=== PATIENT | female | born 1950 | race Caucasian/White ===

== ENCOUNTER 2020-03-24 13:48 | Outpatient (CLI) | payer MEDICARE, BC, OTHER, SELFPAY ==
[2020-03-24 13:58] LABS: Basophils % 0.9 %; Eosinophils # 0.1 10^3/uL (0.0-0.8); Eosinophils % 3.7 %; Hematocrit 41.4 % (37.0-47.0); Hemoglobin 12.9 g/dL (11.5-15.3); Lymphocytes # 1.2 10^3/uL (0.8-4.8); Lymphocytes % 36.6 %; Mean Corpuscular HGB Conc 31.2 g/dL (30.0-36.0); Mean Corpuscular Hemoglobin 34.7 pg (28.0-34.0); Mean Corpuscular Volume 111.3 fL (81-99); Mean Platelet Volume 9.6 fL (7.4-10.4); Monocytes # 0.3 10^3/uL (0.2-0.9); Monocytes % 9.2 %; Neutrophils % 49.3 %; Nucleated Red Blood Cells % 0 %; Platelet Count 240 10^3/cmm (130-400); Red Blood Count 3.72 10^6/uL (4.1-5.3); White Blood Count 3.3 10^3/uL (4.0-10.0)
--- NOTE | 2020-03-24 14:00 | ECG_ITS ---
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 Measurements Intervals [place] Rate: 78 P: 79 ID: [id number] QRS: 16 QRSD: 105 T: 48 QT: 398 QTc: 454 Interpretive Statements SINUS RHYTHM No previous ECG available for comparison Electronically Signed On 03-24-2020 16:43:39 CDT by Tim Garcia M.D. [id number]
[2020-03-24 14:13] LABS: Anion Gap 13.3 (5-19); Blood Urea Nitrogen 9 mg/dL (8-23); Calcium 9.3 mg/dL (8.5-10.5); Carbon Dioxide 24 mmol/L (22-29); Chloride 103 mmol/L (98-107); Glucose 98 mg/dL (65-115); Osmolality Calculated 278 mOsm/kg (285-295); Potassium 4.3 mmol/L (3.5-5.1); Sodium 136 mmol/L (136-145)
== END 2020-03-24 13:49 | disposition home or self-care (01) ==
LOC: LAB 13:50
PROVIDERS: PCP Nurse Practitioner Family; Visit Provider Specialist
DX: Z01.818 Encounter for other preprocedural examination (principal)
CPT/HCPCS: 36415; 80048; 85025; 93005

== ENCOUNTER 2020-05-05 22:19 | Emergency (ER) | payer MEDICARE, BC, OTHER, SELFPAY ==
[2020-05-05 22:21] VITALS: BP 120/77; PULSE 81; RESP 16; TEMP 36.5; O2SAT 98; BMI 27.9
--- NOTE | 2020-05-05 22:27 | ECG_ITS ---
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 Measurements Intervals [place] Rate: 81 P: 7 UT: 125 QRS: 43 QRSD: 106 T: 66 QT: 397 QTc: 462 Interpretive Statements SINUS RHYTHM Compared to ECG 03/24/2020 14:03:16 No significant changes Electronically Signed On 05-06-2020 17:25:59 CDT by Carlos Varner M.D. [id number]
--- NOTE | 2020-05-05 22:27 | XRR_ITS ---
PROCEDURE INFORMATION: Exam: XR Chest, 1 View Exam date and time: 05/05/2020 10:40 PM Age: 69 years old Clinical indication: TIA TECHNIQUE: Imaging protocol: XR of the chest Views: 1 view. COMPARISON: No relevant prior studies available. FINDINGS: Lungs: No pneumonia or pulmonary edema. Pleural space: No pleural effusion or pneumothorax. Heart/Mediastinum: The cardiac silhouette is not enlarged. The mediastinal contours are normal. Diaphragm: Mild elevation of the right hemidiaphragm. Bones/joints: Prior bilateral reverse total shoulder arthroplasties. Slight curvature of the thoracic spine convex to the left associated with multilevel disc degeneration. XR/XR chest 1V portable [id number] IMPRESSION: No acute abnormality.
--- NOTE | 2020-05-05 22:29 | ED_ITS ---
HPI - Neuro Symptoms/Deficit General: Chief Complaint: Neuro Symptoms/Deficit Stated Complaint: TIA Time Seen by Provider: 05/05/20 22:20 Source: EMS Mode of arrival: EMS Limitations: no limitations History of Present Illness: HPI Narrative: 69-year-old female states today at 9 she had a black spot in her vision. Son came upstairs and states that she seemed to have left facial droop. The symptoms all resolved before EMS arrived. Patient states she drinks daily and has had 7 beers. Patient is currently intoxicated and is been very rude to myself along with staff. Patient is able ambulate. She denies any chest pain or headache. Associated symptoms: Deny chest pain, headache(s), nausea or vomiting Review of Systems Const: Denies: fever(s), chills, body aches or change in appetite Eyes: Denies: blurry vision or eye discomfort ENMT: Denies: throat pain or dental pain Card: Denies: chest pain Resp: Denies: dyspnea GI: Denies: abdominal pain, nausea, vomiting or diarrhea : Denies: dysuria Musc: Denies: neck pain or back pain Skin/Breast: Denies: rash Neuro: Denies: headache(s) Psych: Denies: depression Sunny/Lymph: Denies: easy bruising All/Imm: Denies: urticaria PFSH ED PFSH: Social History (Updated 05/05/20 @ 22:33 by Akira Murillo RN) Smoking and tobacco status: current every day smoker cigarettes Packs smoked per day: 2 Alcohol intake: current Alcohol intake frequency: 3 or more drinks per day Alcohol type: beer NIH stroke score NIHSS: Level Of Consciousness - 1a: 0 Level Of Consciousness Questions - 1b: Both Correct Level Of Consciousness Commands - 1c: Both Correct Best Gaze - 2: Normal Visual Joel - 3: No Visual Loss Facial Palsy - 4: Normal Motor Arm Right - 5: No Drift Motor Arm Left - 5: No Drift Motor Leg Right - 6: No Drift Motor Leg Left - 6: No Drift Limb Ataxia - 7: Absent Sensory - 8: Normal Best Language - 9: No Aphasia Dysarthia - 10: Normal Extinction And Inattention - 11: 0 Score: Total Score: 0 Physical Exam Const: COMMON NORMALS: no acute distress, patient oriented x3 and healthy appearing OTHER: intoxicated HENMT: COMMON NORMALS: normocephalic and atraumatic HEAD & SCALP: normocephalic and atraumatic Eye: COMMON NORMALS: Equal, round and reactive pupils present and EOMs intact bilaterally PUPIL: Yes Equal, round and reactive pupils present Neck/C-Spine: COMMON NORMALS: full ROM and supple Chest: COMMONS NORMALS: normal inspection of the chest and normal palpation of entire chest wall Resp: COMMON NORMALS: normal respiratory effort, No retractions, No use of accessory muscles and clear to auscultation bilaterally AUSCULTATION: clear to auscultation bilaterally Cardio: COMMON NORMALS: regular rate, regular rhythm and No murmurs present (Cardio) RATE: regular rate RHYTHM: regular rhythm GI: COMMON NORMALS: Normal to inspection, nondistended, normoactive bowel sounds present, Soft to palpation, non-tender and no masses PALPATION: Yes Soft to palpation Extremity: COMMON NORMALS: normal to inspection and full ROM Neuro: COMMON NORMALS: patient oriented x3, moves all extremities and no focal motor deficits Psych: COMMON NORMALS: mental status grossly normal, Normal thought process present and cooperative THOUGHT PROCESS: Normal thought process present Skin: COMMON NORMALS: no rashes or lesions noted and no wounds GENERAL SKIN EXAM: no rashes or lesions noted Course Vital Signs: Vital signs: Vital Signs Temperature 98.8 F 05/06/20 00:01 Pulse Rate 88 05/06/20 00:01 Respiratory Rate 14 05/06/20 00:01 Blood Pressure 136/84 05/06/20 00:01 Pulse Oximetry 96 05/06/20 00:01 MDM - Neuro Symptoms/Deficit MDM Narrative: Medical decision making narrative: Patient presents here with a possible TIA. Patient is also intoxicated. Patient's exam here is benign. She is able ambulate here and had no focal deficits. Patient was very rude to myself along with staff here. Patient's head CT is normal. She is to follow-up with primary care doctor in 3 to 5 days return if worsening. Lab Data: Labs: Lab Results 05/05/20 05/05/20 05/05/20 Range/Units 23:10 23:10 23:10 WBC 3.8 L (4.0-10.0) 10^3/ uL RBC 3.51 L (4.1-5.3) 10^6/u L Hgb 12.3 (11.5-15.3) g/dL Hct 37.8 (37.0-47.0) % MCV 107.7 H (81-99) fL MCH 35.0 H (28.0-34.0) pg MCHC 32.5 (30.0-36.0) g/dL RDW 13.2 (12.1-15.1) % Plt Count 182 (130-400) 10^3/c mm MPV 9.3 (7.4-10.4) fL Neut % (Auto) 30.2 % Lymph % (Auto) 52.6 % Kleberg % (Auto) 8.6 % Eos % (Auto) 7.3 % Baso % (Auto) 1.0 % Neut # (Auto) 1.16 L (1.8-7.7) 10^3/u L Lymph # (Auto) 2.0 (0.8-4.8) 10^3/u L Kleberg # (Auto) 0.3 (0.2-0.9) 10^3/u L Eos # (Auto) 0.3 (0.0-0.8) 10^3/u L Baso # (Auto) 0.0 (0.0-0.1) 10^3/u L Nucleated RBC % (a uto) 0 % Nucleated RBCs # 0.0 /100WBC PT 13.10 (12.1-14.9) SECO NDS INR 0.96 (0.8-1.2) Sodium 133 L (136-145) mmol/L Potassium 3.5 (3.5-5.1) mmol/L Chloride 102 (98-107) mmol/L Carbon Dioxide 20 L (22-29) mmol/L Anion Gap 14.5 (5-19) BUN 8 (8-23) mg/dL Creatinine 0.6 (0.5-0.9) mg/dL GFR Calculation Not Reportable Glucose 86 (65-115) mg/dL Calculated Osmolal ity 271 L (285-295) mOsm/k g Calcium 8.3 L (8.5-10.5) mg/dL Total Bilirubin 0.2 (0.15-1.2) mg/dL AST 20 (0-32) U/L ALT 14 (0-33) U/L Alkaline Phosphata se 74 (35-105) IU/L Total Protein 7.0 (6.6-8.7) g/dL Albumin 4.3 (3.5-5.2) g/dL Globulin 2.7 (1.3-4.6) g/dL Ethyl Alcohol 173 H (0-10) mg/dL Imaging Data^: CXR: Attestation: I personally reviewed and interpreted this imaging study as follows: My impression: no acute abnormality CT Head: Radiologist's impression: [address] [address] [address] Scan Report Signed Patient: Maria L Clark Unit #: [id number] : 1950 Age/Sex: 69 / F ADM Date: 05/05/20 Loc: ER Room/Bed: Attending Dr: Ordering Provider/Ordering MD: Chantel Ng MD Date of Service: 05/05/20 Procedure(s): CT head wo con* [id number] Accession Number(s): [id number] Report Number: [id number] PROCEDURE INFORMATION: Exam: CT Head Without Contrast Exam date and time: 05/05/2020 10:31 PM Age: 69 years old Clinical indication: Visual disturbance and weakness, extremity and weakness, facial; Left; Additional info: TIA TECHNIQUE: Imaging protocol: Computed tomography of the head without contrast. Radiation optimization: All CT scans at this facility use at least one of these dose optimization techniques: automated exposure control; mA and/or kV adjustment per patient size (includes targeted exams where dose is matched to clinical indication); or iterative reconstruction. COMPARISON: No relevant prior studies available. RADIATION DOSE METRICS: Total DLP (mGy-cm): 831.74 FINDINGS: Brain: No acute intracranial hemorrhage or mass effect. There is decreased attenuation in the periventricular white matter, likely from microvascular disease. No definite acute infarct by CT. MRI could be more sensitive/specific for detection, as clinically directed. Ventricles: Ventricle size is normal for age. Bones/joints: No definite acute skull fracture. Sinuses: Included paranasal sinuses are essentially clear. Mastoid air cells: No significant acute finding. Vasculature: Vascular calcifications in the internal carotid arteries. CT/CT head wo con* [id number] IMPRESSION: 1. No acute intracranial hemorrhage or mass effect. 2. Changes of microvascular disease. 3. No definite acute infarct by CT, see above. 4. Other findings discussed above. EKG Data^: EKG 1: Attestation: I personally reviewed and interpreted this EKG as follows: EKG interpretation date: 05/05/20 EKG interpretation time: 22:45 Interpretation: nsr hr [address] or t wave abnormalities qrs 106 qtc 434 Discharge Plan Discharge Patient Disposition: Home Clinical Impression: Alcohol intoxication Transient cerebral ischemia Qualifiers: Transient cerebral ischemia type: unspecified Qualified Code(s): G45.9 - Transient cerebral ischemic attack, unspecified Condition: Stable Discharge Orders: Discharge Order (Routine); Ordered 05/05/20 Ordered By: Chantel Ng Referrals: Blanca Ybarra APN [Primary Care Provider] - 1-3 days Discharge Diet: Advance as tolerated Discharge Activity: Resume usual activity Patient Instructions: Transient Ischemic Attack (ED) Discharge Date/Time: 05/06/20 00:02 Coding Level of Care Code ED Director Federal for Chg Fwd Exam Comprehensive
[2020-05-05 23:15] LABS: Eosinophils # 0.3 10^3/uL (0.0-0.8); Eosinophils % 7.3 %; Hematocrit 37.8 % (37.0-47.0); Hemoglobin 12.3 g/dL (11.5-15.3); Lymphocytes % 52.6 %; Mean Corpuscular HGB Conc 32.5 g/dL (30.0-36.0); Mean Corpuscular Volume 107.7 fL (81-99); Mean Platelet Volume 9.3 fL (7.4-10.4); Monocytes # 0.3 10^3/uL (0.2-0.9); Monocytes % 8.6 %; Neutrophils # 1.16 10^3/uL (1.8-7.7); Neutrophils % 30.2 %; Nucleated Red Blood Cells % 0 %; Platelet Count 182 10^3/cmm (130-400); Red Blood Count 3.51 10^6/uL (4.1-5.3); Red Cell Distribution Width 13.2 % (12.1-15.1); White Blood Count 3.8 10^3/uL (4.0-10.0)
[2020-05-05 23:30] LABS: INR 0.96 (0.8-1.2)
[2020-05-05 23:33] LABS: Alanine Aminotransferase 14 U/L (0-33); Albumin Level 4.3 g/dL (3.5-5.2); Alcohol Level 173 mg/dL (0-10); Alkaline Phosphatase 74 IU/L (35-105); Anion Gap 14.5 (5-19); Aspartate Amino Transferase 20 U/L (0-32); Blood Urea Nitrogen 8 mg/dL (8-23); Calcium 8.3 mg/dL (8.5-10.5); Carbon Dioxide 20 mmol/L (22-29); Chloride 102 mmol/L (98-107); Globulin 2.7 g/dL (1.3-4.6); Glucose 86 mg/dL (65-115); Osmolality Calculated 271 mOsm/kg (285-295); Potassium 3.5 mmol/L (3.5-5.1); Sodium 133 mmol/L (136-145); Total Bilirubin 0.2 mg/dL (0.15-1.2)
[2020-05-06 00:01] VITALS: BP 136/84; PULSE 88; RESP 14; TEMP 37.1; O2SAT 96
== END 2020-05-06 00:02 | disposition home or self-care (01) ==
PROVIDERS: Emergency Provider Emergency Medicine; PCP Nurse Practitioner Family
DX: G45.9 Transient cerebral ischemic attack, unspecified (principal); F10.129 Alcohol abuse with intoxication, unspecified; Y90.6 Blood alcohol level of 120-199 mg/100 ml; F17.210 Nicotine dependence, cigarettes, uncomplicated
CPT/HCPCS: 12345; 70450; 71045; 80053; 80307; 85025; 85610; 93005; 99282; 99283

== ENCOUNTER → 2022-06-23 11:08 | Outpatient (BNVA) | payer MEDICARE, BC, OTHER, SELFPAY | PROVIDERS: PCP Nurse Practitioner Family; Visit Provider Surgery | DX: K29.70 Gastritis, unspecified, without bleeding (principal); R10.9 Unspecified abdominal pain | CPT/HCPCS: 99203 ==

== ENCOUNTER 2022-08-10 12:36 | Outpatient (CLI) | payer MEDICARE, BC, OTHER, SELFPAY ==
[2022-08-10] MEDS: iohexol 350 mg/mL 100 mL Btl PO (13:29)
[2022-08-10] MEDS: iohexol 350 mg/mL 100 mL Btl IV (13:54)
--- NOTE | 2022-08-10 14:00 | CT_ITS ---
WS: [id number] CT ABDOMEN PELVIS TECHNIQUE: Contrast-enhanced CT of the abdomen and pelvis with coronal and sagittal reformatted image s. CLINICAL INFORMATION: abd pain COMPARISON: None. DLP: 1120.[address] scans at [facility] use at least one of these dose optimization techniques: automated e xposure control; mA and/or kV adjustment per patient size (includes targeted exams where dose is matc hed to clinical indication); or iterative reconstruction. FINDINGS: Bilateral breast prosthesis. Lung bases are well aerated. Small esophageal hiatal hernia. Mild circum ferential thickening involving the distal esophagus and GE junction can be seen with gastritis and es ophagitis. Gastric wall and Gastric rugal thickening. This can be further evaluated with endoscopy. Prior cholecystectomy. Physiologic dilatation of the common bile duct. Normal portal vein and splenic vein. Pancreas appears normal. Mild aortic calcification. Normal caliber abdominal aorta. Adrenal gl ands are normal. No hydronephrosis. Tiny fat-containing umbilical hernia.Normal sigmoid colon. Mild transverse colon constipation. Hypert rophic changes lower thoracic spine. Disc space narrowing worse L4-L5. CT/CT abdomen pelvis w con* [id number] IMPRESSION: 1. Mild thickening at the GE junction with gastric wall thickening involving t he body and fundus with rugal thickening likely due to gastroesophagitis. This can be further evaluated with endoscopy. 2. Prior cholecystectomy with intrahepatic and common bile duct dilatation lik sheldon physiologic postcholecystectomy. 3. Tiny esophageal hiatal hernia. 4. No hydronephrosis in either kidney. 5. Tiny fat-containing umbilical hernia. 6. Prior hysterectomy. 7. No other remarkable findings.
== END 2022-08-10 12:37 | disposition home or self-care (01) ==
LOC: RAD 12:36
PROVIDERS: PCP Nurse Practitioner Family; Visit Provider Surgery
DX: K29.70 Gastritis, unspecified, without bleeding (principal); Z90.49 Acquired absence of other specified parts of digestive tract; K44.9 Diaphragmatic hernia without obstruction or gangrene; K42.9 Umbilical hernia without obstruction or gangrene; Z90.710 Acquired absence of both cervix and uterus
CPT/HCPCS: 74177; Q9967

== ENCOUNTER 2022-08-17 08:39 | Day surgery (SDC) | payer MEDICARE, BC, OTHER, SELFPAY ==
[2022-08-16 10:27] VITALS: BMI 27.1
[2022-08-17 09:01] VITALS: BP 121/94; PULSE 114; RESP 18; TEMP 36.3; O2SAT 96
[2022-08-17] MEDS: sodium chloride 0.9% 1,000 ML 30 ML IV (09:10)
--- NOTE | 2022-08-17 10:08 | P.HP_ITS ---
Same Day Surgery H&P Indication for Procedure/HPI DATE OF PROCEDURE: August 17, 2022 CHIEF COMPLAINT/INDICATIONFOR SURGICAL PROCEDURE: Abdominal pain PREOP DIAGNOSIS: Abdominal pain PLANNED PROCEDURE: Operation Date: 08/17/22 10:00 Proposed Procedures p EGD/colonoscopy 20868,87013,K29.70(Not Applicable) - Sam Montgomery MD s Colonoscopy(Not Applicable) - Sam Montgomery MD 06/23/2022 Is a pleasant 71 years old female patient comes with broad spectrum of GI symptomatology.? In the form of abdominal pain being dull for the past 3 months.? Seems that Carafate helped some and she was told that she may have an ulcer.? It seems to make it worse otherwise.? Pain is mostly in the upper abdomen.? And referred to the back.? No other associated constitutional symptoms.? Patient never had an EGD before and last colonoscopy was over 10 years ago and a polyp was found.? Patient gives history of open cholecystectomy appendectomy and history of endometriosis. 08/17/2022 Patient comes to the GI lab for diagnostic EGD and colonoscopy, in the interim had a CT scan of the abdomen pelvis per my request and did show; 1.? Mild thickening at the GE junction with gastric wall thickening involving the body and fundus with rugal thickening likely due to gastroesophagitis. This can be further evaluated with endoscopy. 2.? Prior cholecystectomy with intrahepatic and common bile duct dilatation likely physiologic postcholecystectomy. 3.? Tiny esophageal hiatal hernia. 4.? No hydronephrosis in either kidney. 5.? Tiny fat-containing umbilical hernia. 6.? Prior hysterectomy. 7.? No other remarkable findings. ? ROS All systems have been reviewed negative except as for the above or per problem list. Medications/Allergies* Home Medications Medication Instructions Recorded Confirmed Type B-complex with vitamin C See Rx Instructions .Route .monthly 05/27/20 08/16/22 History albuterol sulfate 90 mcg/actuation 2 puff inhalation Q6H PRN 05/27/20 08/16/22 History aerosol inhaler Shortness Of Breath duloxetine 60 mg capsule,delayed 60 mg PO DAILY 05/27/20 08/16/22 History release (Cymbalta) levothyroxine 125 mcg capsule 125 mcg PO DAILY 05/27/20 08/16/22 History lorazepam 0.5 mg tablet 1 mg PO .bedtime 05/27/20 08/16/22 History pantoprazole 40 mg tablet,delayed 40 mg PO DAILY 05/27/20 08/16/22 History release sucralfate 1 gram tablet (Carafate) 1 gm PO .every 6 hours PRN Acid 05/27/20 08/16/22 History Reflux topiramate 200 mg tablet 400 mg PO DAILY 05/27/20 08/16/22 History Allergies/Adverse Reactions Allergy/AdvReac Type Severity Reaction Status Date / Time codeine Allergy ALGY-Hives Verified 08/17/22 10:09 hydromorphone [From Dilaudid] Allergy ALGY-Anaphy Verified 08/17/22 10:09 laxis morphine Allergy ALGY-Hives Verified 08/17/22 10:09 Penicillins Allergy Unknown Verified 08/17/22 10:09 Current Medications: Generic Name Dose Route Start Last Admin Trade Name Freq PRN Reason Stop Dose Admin Sodium Chloride 1,000 mls @ 30 mls/hr 08/17/22 08:45 08/17/22 09:10 Sodium Chloride 0.9% IV 08/18/22 08:44 30 mls/hr .Q24H LUZ Administration Pertinent History/Comorbid Conditions* Family History (Updated 05/27/20 @ 11:06 by Sol Carreon LPN) No pertinent family history Unknown colon cancer, uterine or ovarian cancer, heart disease, hypertension, hypercholesterolemia, stroke, diabetes, or thyroid issues Breast cancer Mother diagnosed at age 65 Social History Smoking and tobacco status: current every day smoker cigarettes Packs smoked per day: 2 Alcohol intake: current Alcohol intake frequency: 3 or more drinks per day Alcohol type: beer Pertinent Exam Findings alert, oriented x 3, regular rate & rhythm and procedure specific exam findings (Abdominal exam nontender nondistended soft) Recommendations Surgery/Procedure today (EGD and colonoscopy with possible biopsy) Coding Level of Care Code Acute 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
--- NOTE | 2022-08-17 10:40 | P.ANESASSM_ITS ---
Pre-Anesthetic Assessment Height/Weight: Height 1.65 m Weight 73.936 kg Temp Pulse Resp BP Pulse Ox O2 Del Method 97.3 F L 114 H 18 121/94 96 08/17/22 09:01 08/17/22 09:01 08/17/22 09:01 08/17/22 09:01 08/17/22 09:01 08/17/22 09:01 Preop Diagnosis: Abdominal pain Operation Date: 08/17/22 10:00 Proposed Procedures p EGD/colonoscopy [id number],K29.70(Not Applicable) - Sam Montgomery MD s Colonoscopy(Not Applicable) - Sam Montgomery MD Familial anesthetic complications: None Was Beta Chapo taken within 24 hours: N/A Was Clonidine taken within 24 hours: N/A Last intake: Intake Last Liquid Date 08/16/22 Last Liquid Time 23:30 Last Solid Date 08/15/22 Last Solid Time 22:00 Social Alcohol (Nightly beer) and Tobacco 1.5 pack(s) per day Exam alert, oriented x 3, clear to auscultation bilaterally and regular rate & rhythm Airway Submandibular: within normal limits Cervical ROM: Other (Decreased ROM) Mallampati: Class III Dentition: other (Bridge) History/ROS No significant history except as noted and No significant complaints Pulmonary Chronic Obstructive Pulmonary Disease, Cough and Exertional Dyspnea CV/HEM Coronary Artery Disease None reported Hepatic None reported GI Gastroesophageal Reflux Disease (Controlled with meds, none this AM) and Peptic Ulcer Disease Metabolic Thyroid Disease [facility] Fibromyalgia, Lower Back Pain and Osteoarthritis/DJD Neuropsych Anxiety and Depression Anesthetic Plan ASA status: 3 Anesthesia: Anesthesia Evaluation, General and MAC Risk of > 500 ml blood loss (7ml/kg in children): No Medications/Allergies Home Medications Medication Instructions Recorded Confirmed Last Taken Type B-complex with vitamin C See Rx Instructions .Route .monthly 05/27/20 08/16/22 08/14/22 History albuterol sulfate 90 mcg/actuation 2 puff inhalation Q6H PRN 05/27/20 08/16/22 08/14/22 History aerosol inhaler Shortness Of Breath duloxetine 60 mg capsule,delayed 60 mg PO DAILY 05/27/20 08/16/22 08/15/22 History release (Cymbalta) levothyroxine 125 mcg capsule 125 mcg PO DAILY 05/27/20 08/16/22 08/17/22 07:00 History lorazepam 0.5 mg tablet 1 mg PO .bedtime 05/27/20 08/16/22 08/16/22 History pantoprazole 40 mg tablet,delayed 40 mg PO DAILY 05/27/20 08/16/22 08/16/22 History release sucralfate 1 gram tablet (Carafate) 1 gm PO .every 6 hours PRN Acid 05/27/20 08/16/22 08/14/22 History Reflux topiramate 200 mg tablet 400 mg PO DAILY 05/27/20 08/16/22 08/14/22 History Allergies Allergy/AdvReac Type Severity Reaction Status Date / Time codeine Allergy ALGY-Hives Verified 08/17/22 10:09 hydromorphone [From Dilaudid] Allergy ALGY-Anaphy Verified 08/17/22 10:09 laxis morphine Allergy ALGY-Hives Verified 08/17/22 10:09 Penicillins Allergy Unknown Verified 08/17/22 10:09 Current Medications Generic Name Dose Route Start Last Admin Trade Name Freq PRN Reason Stop Dose Admin Sodium Chloride 1,000 mls @ 30 mls/hr 08/17/22 08:45 08/17/22 09:10 Sodium Chloride 0.9% IV 08/18/22 08:44 30 mls/hr .Q24H LUZ Administration PFSH Anesthesia Family History Mother Breast cancer diagnosed at age 65 Unknown No pertinent family history colon cancer, uterine or ovarian cancer, heart disease, hypertension, hypercholesterolemia, stroke, diabetes, or thyroid issues Social History Smoking and tobacco status: current every day smoker cigarettes Packs smoked per day: 2 Alcohol intake: current Alcohol intake frequency: 3 or more drinks per day Alcohol type: beer Data Anesthesia Cardiac Studies: No Data to Display
[2022-08-17 11:31] VITALS: BP 122/72; PULSE 94; RESP 16; TEMP 37.3; O2SAT 97
[2022-08-17 11:36] VITALS: BP 115/79; PULSE 89; RESP 18; O2SAT 98
[2022-08-17 11:46] VITALS: BP 115/78; PULSE 81; RESP 18; O2SAT 97
--- NOTE | 2022-08-17 16:32 | ANE.PACU2 ---
Inpatient post-anesthesia follow up: Airway intact: Yes Vital signs: Temperature 99.1 F Pulse Rate 81 Respiratory Rate 18 Blood Pressure 115/78 Pulse Oximetry 97 Oxygen Delivery Me thod Room Air Oxygen Flow Rate Fraction of Inspir ed Oxygen Hydration adequate: Yes Nausea and vomiting: No Pain level: 2 Mental status: Baseline
== END 2022-08-17 12:10 | disposition home or self-care (01) ==
PROVIDERS: PCP Nurse Practitioner Family; Visit Provider Surgery
PROC: 0DJ08ZZ Inspection of Upper Intestinal Tract, Via Natural or Artificial Opening Endoscopic (ICD-10-PCS; CPT 43235; principal; 2022-08-17 10:00)
PROC: 0DJD8ZZ Inspection of Lower Intestinal Tract, Via Natural or Artificial Opening Endoscopic (ICD-10-PCS; CPT 45378; 2022-08-17 10:00)
DX: K29.70 Gastritis, unspecified, without bleeding (principal); K57.30 Diverticulosis of large intestine without perforation or abscess without bleeding; D12.3 Benign neoplasm of transverse colon; K44.9 Diaphragmatic hernia without obstruction or gangrene; K29.50 Unspecified chronic gastritis without bleeding; B96.81 Helicobacter pylori [H. pylori] as the cause of diseases classified elsewhere; J44.9 Chronic obstructive pulmonary disease, unspecified; I25.10 Atherosclerotic heart disease of native coronary artery without angina pectoris; Z87.11 Personal history of peptic ulcer disease; M79.7 Fibromyalgia; F17.210 Nicotine dependence, cigarettes, uncomplicated; K21.00 Gastro-esophageal reflux disease with esophagitis, without bleeding
CPT/HCPCS: 43239; 45380; 88305; 88342; J2704; J7030

== ENCOUNTER → 2022-08-24 15:15 | Outpatient (BNVA) | payer MEDICARE, BC, OTHER, SELFPAY | PROVIDERS: PCP Nurse Practitioner Family; Visit Provider Surgery | DX: Z09 Encounter for follow-up examination after completed treatment for conditions other than malignant neoplasm (principal); K57.31 Diverticulosis of large intestine without perforation or abscess with bleeding; K29.70 Gastritis, unspecified, without bleeding | CPT/HCPCS: 99212 ==

== ENCOUNTER 2022-10-26 13:25 | Outpatient (CLI) | payer MEDICARE, BC, OTHER, SELFPAY ==
--- NOTE | 2022-10-26 13:39 | MR_ITS ---
WS: [id number] MRI HEAD WITH CONTRAST TECHNIQUE: Sagittal T1, T2 axial, T2 axial FLAIR, axial susceptibility weighted imaging, axial diffus ion weighted images, and coronal T2 images were obtained. Pre and post-T1 axial and post T1 coronal i mages. ADC and FSPGR images. CLINICAL INFORMATION: ACUTE NONINTRACTABLE HEADACHE COMPARISON: CT head May 05, 2020 FINDINGS: No evidence of restricted diffusion to suggest acute ischemia. Ventricular system and basal cisterns are patent. Moderate small vessel changes. Mild parenchymal volume loss. Small vessel changes in the scarlet. Normal vascular flow voids at the skull base. No extra-axial fluid collections. No evidence of mass or mass effect. No hemosiderin on susceptibly weighted images. Normal optic chiasm and pituitary infundibulum. Small chronic lacunar infarct in the LEFT centrum semiovale. A few tiny chronic lacuna r infarcts LEFT cerebellum. Moderate symmetric atrophy temporal lobes and hippocampal formations. Normal cavernous sinuses and Me ckel's cave. Paranasal sinuses and mastoid air cells are well aerated. Normal posterior nasopharynx a nd parapharyngeal fat. No abnormal gadolinium enhancement. Normal dural venous sinuses. No abnormal intracranial enhancement . MR/MR head wo/w con [id number] IMPRESSION: 1. No evidence of restricted diffusion to suggest acute ischemia. 2. Moderate small vessel changes with mild parenchymal volume loss. Small vess el changes in the scarlet. 3. Small chronic lacunar infarct in the LEFT centrum semiovale. A few tiny chr onic lacunar infarcts LEFT cerebellum. 4. No hemosiderin on susceptibly weighted images. 5. No abnormal gadolinium enhancement. 6. No other suspicious findings.
[2022-10-26] MEDS: gadobenate dimeglumine 20 mL vial IV (14:12)
== END 2022-10-26 13:26 | disposition home or self-care (01) ==
LOC: RAD 13:28
PROVIDERS: PCP Nurse Practitioner Family; Visit Provider Nurse Practitioner Family
DX: R51.9 Headache, unspecified (principal); I63.81 Other cerebral infarction due to occlusion or stenosis of small artery
CPT/HCPCS: 70553; A9577

== ENCOUNTER → 2023-10-11 14:20 | Outpatient (BNVA) | payer MEDICARE, BC, OTHER, SELFPAY | PROVIDERS: PCP Nurse Practitioner Family; Visit Provider Dermatology | DX: D48.5 Neoplasm of uncertain behavior of skin (principal); L30.9 Dermatitis, unspecified; D18.01 Hemangioma of skin and subcutaneous tissue; F42.4 Excoriation (skin-picking) disorder; L82.1 Other seborrheic keratosis; L57.0 Actinic keratosis | CPT/HCPCS: 11104; 99203 ==

== ENCOUNTER → 2023-10-25 11:28 | Outpatient (BNVA) | payer MEDICARE, BC, OTHER, SELFPAY | PROVIDERS: PCP Nurse Practitioner Family; Visit Provider Dermatology | DX: Z48.02 Encounter for removal of sutures (principal); L23.9 Allergic contact dermatitis, unspecified cause | CPT/HCPCS: 99213 ==

== ENCOUNTER 2024-01-10 11:10 | Outpatient (CLI) | payer MEDICARE, BC, OTHER, SELFPAY ==
--- NOTE | 2024-01-10 11:16 | MR_ITS ---
WS: [id number] MRI BRAIN WITH AND WITHOUT CONTRAST HISTORY: MIGRAINE W/AURA,NOT INTRACTABLE W/O STATUS MIGRAINOSUS COMPARISON: 10/26/2022 TECHNIQUE: Multiplanar imaging performed through the brain with MultiHance 16 ml's IV. No acute infarcts are seen. Rodriguez-white matter differentiation is well preserved. Moderate symmetric a trophy in the temporal lobes and hippocampal formations. Moderate small vessel ischemic disease and m oderate atrophy. Very similar to the prior study. No obvious progression of small vessel disease. Jackie or ischemic changes in the scarlet, LEFT greater than RIGHT. Remote lacunar infarct in the LEFT centrum semiovale. No hemorrhage. Ventricles and extra-axial spaces are normal. Clivus and pituitary gland are normal. Postcontrast images are negative for masses or vascular malformations. Dural venous sinuses are normal. Paranasal sinuses: Well aerated with no significant disease. Mastoid air cells: Normal. Calvarium and scalp: Normal. MR/MR head wo/w con [id number] IMPRESSION: 1. No acute infarct or enhancing mass. 2. Moderate atrophy and small vessel ischemic disease. No obvious progression since 10/26/2022. 3. Moderate hippocampal atrophy. 4. Prior ischemic disease in the scarlet.
--- NOTE | 2024-01-10 11:16 | MR_ITS ---
WS: [id number] MRA CAROTID ARTERIES HISTORY: MAIGRAINE W/AURA COMPARISON: None available. TECHNIQUE: MRA is performed with intravenous gadolinium. MIP and source images are reviewed. MRI of the carotid arteries significantly limited. Suboptimal imaging technique. Right: Origin of the RIGHT common carotid arteries not visible. The RIGHT common, internal and lath tier al carotid arteries are patent. There is no high-grade stenosis. Atherosclerotic plaque and mild sten osis not excluded. Left: LEFT common, internal and external carotid arteries are patent. No high-grade stenosis. Stenosi s less than 50%. Small areas of plaque in narrowing would not be visible. Subclavian Arteries: Not visualized well. Vertebral Arteries: Dominant RIGHT vertebral artery. Only a small portion of the vertebral arteries t o the transverse foramina are identified and normal. No occlusion or stenosis. MR/MR angio neck w con* [id number] IMPRESSION: No high-grade carotid artery stenosis. Small areas of plaque and mild stenosis would be difficult to exclude. Stenosis less than 50%.
[2024-01-10] MEDS: gadobenate dimeglumine 20 mL vial IV (12:13)
== END 2024-01-10 11:11 | disposition home or self-care (01) ==
LOC: RAD 11:10
PROVIDERS: PCP Nurse Practitioner Family; Visit Provider Nurse Practitioner Family
DX: G43.109 Migraine with aura, not intractable, without status migrainosus (principal); G31.9 Degenerative disease of nervous system, unspecified; I67.89 Other cerebrovascular disease
CPT/HCPCS: 70548; 70553; A9577

== ENCOUNTER → 2024-04-24 09:52 | Outpatient (BNVA) | payer MEDICARE, BC, OTHER, SELFPAY | PROVIDERS: PCP Nurse Practitioner Family; Referring Provider Nurse Practitioner Family; Visit Provider Psychiatry & Neurology Neurology | DX: S16.1XXA Strain of muscle, fascia and tendon at neck level, initial encounter (principal); X58.XXXA Exposure to other specified factors, initial encounter; M54.2 Cervicalgia; G43.909 Migraine, unspecified, not intractable, without status migrainosus | CPT/HCPCS: 99203 ==

== ENCOUNTER 2024-05-21 13:15 | Outpatient (CLI) | payer MEDICARE, BC, OTHER, SELFPAY ==
--- NOTE | 2024-05-21 13:45 | MR_ITS ---
WS: [id number] MRI CERVICAL SPINE with and without contrast HISTORY: M54.2 - Cervicalgia COMPARISON: None available. Technique: Multiplanar, multisequence noncontrast imaging of the cervical spine. Postcontrast MultiHa nce 14 mL. C5 retrolisthesis by 2.5 mm. No acute fracture or marrow edema. Disc spaces are narrowed and desiccated most significant at C5-6. No signal abnormality within the co rd. Craniocervical junction, C1 and C2 relationship, odontoid process and soft tissues are normal. C2-C3: Normal. C3-C4: Normal. C4-C5: Mild osteophytic ridging and annular disc bulging LEFT foraminal disc osteophyte complex. Mild central and RIGHT foraminal stenosis with moderate LEFT foraminal stenosis. C5-C6: Osteophytic ridging encroaching upon the ventral thecal sac. Facet arthritis and foraminal ost eophytes. Severe central and bilateral foraminal stenosis. C6-C7: Osteophytic ridging with annular disc bulging. Disc osteophyte complexes in the neural foramin a. Moderate to severe central with severe bilateral foraminal stenosis, LEFT greater than RIGHT. C7-T1: No significant stenosis. Breathing motion artifact. No discitis or osteomyelitis. No foraminal masses or abnormal enhancement. MR/MR cervical spine wo/w [id number] IMPRESSION: 1. Moderate cervical spondylosis. 2. C4-5: Mild central and RIGHT foraminal stenosis with moderate LEFT foramina l stenosis due to disc osteophyte complex. 3. C5-6: Severe central with bilateral foraminal stenosis predominately due to facet disease and osteophytosis. 4. C6-7: Moderate to severe central with severe bilateral foraminal stenosis, LEFT greater than RIGHT. 5. No discitis or osteomyelitis.
[2024-05-21] MEDS: gadobenate dimeglumine 20 mL vial IV (14:11)
== END 2024-05-21 13:16 | disposition home or self-care (01) ==
LOC: RAD 13:15
PROVIDERS: PCP Nurse Practitioner Family; Visit Provider Psychiatry & Neurology Neurology
DX: M43.12 Spondylolisthesis, cervical region (principal); M25.78 Osteophyte, vertebrae; M99.61 Osseous and subluxation stenosis of intervertebral foramina of cervical region; M47.892 Other spondylosis, cervical region
CPT/HCPCS: 72156

== ENCOUNTER → 2024-05-31 12:52 | Outpatient (BNVA) | payer MEDICARE, BC, OTHER, SELFPAY | PROVIDERS: PCP Nurse Practitioner Family; Visit Provider Orthopaedic Surgery | DX: S16.1XXA Strain of muscle, fascia and tendon at neck level, initial encounter (principal); X58.XXXA Exposure to other specified factors, initial encounter | CPT/HCPCS: 72050; 99204 ==

== ENCOUNTER 2025-08-02 22:48 | Inpatient (IN) | payer MEDICARE, BC, OTHER, SELFPAY ==
--- OUTSIDE RECORDS SUMMARY | 2024-08-06 11:00 | XMS_ITS ---
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 6 mo w/ ua. * Medical History: Objective: * Vitals: Assessment: Plan: * Treatment: * Billing Information: * Visit Code: * Procedure Codes: * Electronic signature of ERNST MONACO APRN on 08/02/2025 at 11:02 PM SHOW DESIGN SUPERVISOR Sign off status: Pending * Provider: EFRAIN Fay Date: 10/06/2023 Generated for eDbbie parrish/Valeriy/eTransmitting on: 10/02/2024 11:02 PM SHOW DESIGN SUPERVISOR
[2025-08-02 22:45] VITALS: BP 152/81; PULSE 69; RESP 18; TEMP 36.6; O2SAT 98; BMI 27.8
--- NOTE | 2025-08-02 22:46 | XRR_ITS ---
PROCEDURE INFORMATION: Exam: XR Right Hip Exam date and time: 08/02/2025 10:48 PM Age: 75 years old Clinical indication: Injury or trauma; Blunt trauma (contusions or hematomas); EMS arrival for fall at home. C/O right hip pain. ; Additional info: Fall, right hip pain, include pelvis please TECHNIQUE: Imaging protocol: Radiologic exam of the right hip. Views: 1 view hip with pelvis when performed. COMPARISON: CT abdomen pelvis w con* [id number] 08/10/2022 1:51 PM FINDINGS: Bones/joints: Mildly displaced right transcervical femoral neck fracture. Diffuse osseous demineralization. Soft tissues: Unremarkable. XR/XR hip RT 2-3V wo/w pel* [id number] IMPRESSION: Mildly displaced right transcervical femoral neck fracture.
[2025-08-02 23:00] VITALS: RESP 16; O2SAT 98
[2025-08-02] MEDS: oxyCODONE 5 mg IR Tab/Cap PO (23:00)
--- NOTE | 2025-08-02 23:00 | W.ED.FALL ---
HPI - Fall General: Chief Complaint: Fall Stated Complaint: FALL POSSIBLE L HIP FX Time Seen by Provider: 08/02/25 22:50 History of Present Illness: Patient is a 75-year-old female with past medical history of COPD, hypothyroidism, anxiety, GERD, PUD who presents after a fall at home, in which she tripped over her cat and fell onto her right hip suffering immediate pain at the site and has not been able to ambulate since. She denies hitting her head, no LOC, she is not on blood thinners. She is normally able to ambulate without a walker or without issue. She denies any severe chest pain, headache, shortness of breath, syncope just prior to fall. She also suffered some small skin avulsions to her upper extremities that were wrapped by EMS. Denies any right knee or ankle pain, any other traumatic injuries. Related Data Home Medications ?Medication ?Instructions ?Recorded ?Confirmed B-complex with vitamin C See Rx Instructions .Route .monthly 05/27/20 05/31/24 albuterol sulfate 90 mcg/actuation 2 puff inhalation Q6H PRN 05/27/20 05/31/24 aerosol inhaler Shortness Of Breath duloxetine 60 mg capsule,delayed 60 mg PO DAILY 05/27/20 05/31/24 release (Cymbalta) levothyroxine 125 mcg capsule 125 mcg PO DAILY 05/27/20 05/31/24 lorazepam 0.5 mg tablet 1 mg PO .bedtime 05/27/20 05/31/24 sucralfate 1 gram tablet (Carafate) 1 gm PO .every 6 hours PRN Acid 05/27/20 05/31/24 Reflux topiramate 200 mg tablet 400 mg PO DAILY 05/27/20 05/31/24 cyanocobalamin (vitamin B-12) mcg IM 04/24/24 05/31/24 1,000 mcg/mL injection solution cyclobenzaprine 5 mg tablet 5 mg PO TID PRN 04/24/24 05/31/24 tramadol 50 mg tablet mg PO 04/24/24 05/31/24 Previous Rx's ?Medication ?Instructions ?Recorded metronidazole 500 mg tablet 500 mg PO TID 14 days #42 tabs 08/26/22 pantoprazole 40 mg tablet,delayed 40 mg PO BID 14 days #28 tabs 08/26/22 release (Protonix) diclofenac sodium 1 % topical gel 2 g topical QID #100 grams 04/24/24 (Voltaren Arthritis Pain) Allergies Allergy/AdvReac Type Severity Reaction Status Date / Time codeine Allergy ALGY-Hives Verified 04/24/24 10:05 hydromorphone (From Dilaudid) Allergy ALGY-Anaphy Verified 04/24/24 10:05 laxis morphine Allergy ALGY-Hives Verified 04/24/24 10:05 Penicillins Allergy Unknown Verified 04/24/24 10:05 Review of Systems General: Reports: 10 or more systems reviewed and unremarkable except in HPI and below Musc: Reports: joint pain and joint swelling PFSH ED PFSH: Family History Mother Breast cancer diagnosed at age 65 Unknown No pertinent family history colon cancer, uterine or ovarian cancer, heart disease, hypertension, hypercholesterolemia, stroke, diabetes, or thyroid issues Social History Smoking and tobacco/nicotine status: never used tobacco/nicotine Alcohol intake: current Alcohol intake frequency: 3 or more drinks per day Alcohol type: beer Physical Exam Narrative: EXAM NARRATIVE: In mild distress secondary to pain but overall well-appearing, nontoxic, afebrile, vital stable on arrival. Right hip with point tenderness over right femoral neck, no obvious deformity, no lacerations or abrasions, compartments soft. Right knee and right ankle with no effusion, full range of motion, no overlying bruising or erythema, no tenderness to the touch. 2+ DP and PT pulse distally, 5 out of 5 motor and sensation. Other 3 extremities grossly intact with no tenderness. GCS 15, alert and oriented x 4. Saturating well on room air, breathing comfortably, able to speak in full sentences without getting short of breath, normal sinus rhythm with no leg swelling, 2+ pulses throughout, good cap refill. Course Vital Signs: Vital signs: Vital Signs Temperature 97.7 F 08/03/25 04:00 Pulse Rate 92 08/03/25 04:00 Respiratory Rate 16 08/03/25 04:00 Blood Pressure 113/58 08/03/25 04:00 Pulse Oximetry 90 08/03/25 04:00 Oxygen Delivery Me thod Room Air 08/03/25 04:00 MDM - Fall Medical Decision Making -ddx: Hip fracture, dislocation, mechanical fall, sprain, strain, coagulopathy, skin avulsion - Patient overall well-appearing, with seemingly mechanical fall in which she tripped over her cat, not on blood thinners, landed on her right hip, point tenderness at the site, nowhere else, will give pain control, get x-ray and reassess. - Patient with mildly displaced right femoral neck fracture, closed, neurovascularly intact. Additional pain medication with Dilaudid was given, had questionable allergy, in speaking with her she did not seemingly have a true anxiety just anxiety so was okay with giving this, give her pain relief and no side effects observed. Basic labs have been drawn and patient was admitted to the hospitalist after orthopedics called for probable OR tomorrow, admitted in stable condition, at bedside and updated with plan of care. Lab Data 08/03/25 04:35 08/02/25 23:58 Radiology Impressions Hip/Pelvis X-Ray 08/02/25 22:46 IMPRESSION: Mildly displaced right transcervical femoral neck fracture. Chest X-Ray 08/03/25 00:31 IMPRESSION: No focal consolidation, pleural effusion, or pneumothorax. Laboratory Results WBC 8.75 10^3/uL (3.29-11.43) 08/02/25 23:58 RBC 3.78 10^6/uL (3.85-5.65) L 08/02/25 23:58 Hgb 12.80 g/dL (11.27-16.99) 08/02/25 23:58 Hct 37.9 % (36-47) 08/02/25 23:58 MCV 100.3 fl (85-98) H 08/02/25 23:58 MCH 33.9 pg (27-33) H 08/02/25 23:58 MCHC 33.8 g/dL (30-55) 08/02/25 23:58 RDW 14.1 % (12.1-15.1) 08/02/25 23:58 Plt Count 271 10^3/cmm (157-399) 08/02/25 23:58 MPV 9.0 fL (7.4-10.4) 08/02/25 23:58 Neut % (Auto) 76.7 % 08/02/25 23:58 Lymph % (Auto) 15.7 % 08/02/25 23:58 [place] % (Auto) 4.5 % 08/02/25 23:58 Eos % (Auto) 1.9 % 08/02/25 23:58 Baso % (Auto) 0.5 % 08/02/25 23:58 Neut # (Auto) 6.72 10^3/uL (1.8-7.7) 08/02/25 23:58 Lymph # (Auto) 1.4 10^3/uL (0.8-4.8) 08/02/25 23:58 [place] # (Auto) 0.4 10^3/uL (0.2-0.9) 08/02/25 23:58 Eos # (Auto) 0.2 10^3/uL (0.0-0.8) 08/02/25 23:58 Baso # (Auto) 0.0 10^3/uL (0.0-0.1) 08/02/25 23:58 Nucleated RBC % (auto) 0 % 08/02/25 23:58 Nucleated RBCs # 0.0 /100WBC 08/02/25 23:58 PT 15.70 SECONDS (12.1-14.9) H 08/02/25 23:58 INR 1.17 (0.8-1.2) 08/02/25 23:58 APTT 27.1 SECONDS (23.9-36.7) 08/02/25 23:58 Sodium 132 mmol/L (136-145) L 08/02/25 23:58 Potassium 3.3 mmol/L (3.5-5.1) L 08/02/25 23:58 Chloride 99 mmol/L (98-107) 08/02/25 23:58 Carbon Dioxide 19 mmol/L (22-29) L 08/02/25 23:58 Anion Gap 17.3 (5-19) 08/02/25 23:58 BUN 7 mg/dL (8-23) L 08/02/25 23:58 Creatinine 0.7 mg/dL (0.5-0.9) 08/02/25 23:58 GFR Calculation Not Reportable 08/02/25 23:58 Glucose 92 mg/dL (65-115) 08/02/25 23:58 Calculated Osmolality 272 mOsm/kg (285-295) L 08/02/25 23:58 Calcium 8.4 mg/dL (8.5-10.5) L 08/02/25 23:58 All radiology interpretation(s) finalized by discharge Discharge Plan Discharge Patient Disposition: Admitted As Inpatient Admit Provider: Heather Byrd Clinical Impression: Hip fracture Condition: Stable Coding Level of Care Code ED Press Smith Helper for 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
--- OUTSIDE RECORDS SUMMARY | 2025-08-02 23:02 | XMS_ITS | Patient Health Record ---
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 Name Role Phone Ybarra, [facility] Primary Care Provider ERNST Rendon Unavailable [phone] JANE ZAVALETA Unavailable [phone] Allergies Allergen (clinical drug ingredient) Drug/Non Drug Allergy documented on EMR Reaction Allergy Type Onset Date Status codeine Codeine Unknown Drug Allergy Active Penicillin Unknown Drug Allergy Active Results Component Value Reference Range Notes Urinalysis, Routine Reviewed date:12/19/2024 02:26:15 PM Interpretation: Performing Lab: Notes/Report: Urine-Color yellow Appearance clear Glucose - Bilirubin - Ketones - Specific [place] 1.010 Occult Blood - pH 6.0 Urine Protein - Urobilinogen,Semi-Qn - Nitrite, Urine - WBC Esterase - Reason For Referral No Information Medications Medication SIG (Take, Route, Frequency, Duration) Notes Start Date End Date Status Ativan 0.5 MG 1 tablet at bedtime as needed Orally Once a day Active Dodex 1000 MCG/ML 1 mL Injection Active DULoxetine HCl 60 MG 1 capsule Orally On ce a day Active Topiramate 200 MG 1 tablet Orally Once a day Active traMADol HCl 50 MG 1 tablet as needed Orally Once a day Active Protonix 40 MG 1 tablet Orally Once a day Active Levothyroxine Sodium 125 MCG 1 tablet in the morning on an empty stomach Orally Once a day Active Problems Problem Type SNOMED Code ICD Code Onset Dates Problem Status W/U Status Risk Notes Problem Current smoker (79619313) Current smoker (F17.200) Active confirmed Problem Disorder of urinary bladder (93645005) Bladder wall thickening (N32.89) Active confirmed Vital Signs Heart Rate 91 /min 12/19/2024 Blood pressure diastolic 69 mm Hg 12/19/2024 Height-cm 165.1 cm 12/19/2024 Weight-kg 71.67 kg 12/19/2024 Height 65.0 in 12/19/2024 Blood pressure systolic 109 mm Hg 12/19/2024 Weight 158 lbs 12/19/2024 BMI 26.29 kg/m2 12/19/2024 Encounters Encounter Location Date Provider Diagnosis [facility] [address] [place] [address] 12/19/2024 JANE ZAVALETA Hematuria R31.9 ; Bladder wall thickening N32.89 ; Nocturia R35.1 ; Current smoker F17.200 and History of endometriosis Z87.42 Assessments Encounter Date Diagnosis (ICD Code) Assessment Notes Treatment Notes Treatment Clinical Notes Section Notes 12/19/2024 Hematuria (ICD-10 - R31.9) She had a thickened bladder on CT and negative hematuria workup with no complaints of chronic cystitis or incontinence. Return as needed. 12/19/2024 Bladder wall thickening (ICD-10 - N32.89) She had a thickened bladder on CT and negative hematuria workup with no complaints of chronic cystitis or incontinence. Return as needed. 12/19/2024 Nocturia (ICD-10 - R35.1) She had a thickened bladder on CT and negative hematuria workup with no complaints of chronic cystitis or incontinence. Return as needed. 12/19/2024 Current smoker (ICD-10 - F17.200) She had a thickened bladder on CT and negative hematuria workup with no complaints of chronic cystitis or incontinence. Return as needed. 12/19/2024 History of endometriosis (ICD-10 - Z87.42) She had a thickened bladder on CT and negative hematuria workup with no complaints of chronic cystitis or incontinence. Return as needed. Plan Of Treatment No Information Insurance Providers Payer Name Payer Address Payer Phone Subscriber Number Group Number Insured Name Patient Relationship to Insured Coverage Start Date Coverage End Date [place] Medicare [address] [place] [id number] [phone] [id number] Maria L Clark Self - patient is the insured [facility] [address] [place], [place] [id number] Maria L Clark Self - patient is the insured Medical (General) History Medical History History ICD Code osteoarthritis depression hypothyroidism Surgical History Surgery Date(Month/Year) Left TKR 1975 appendectomy, gallbladder, f allopian tube, , bowel reconstruction, endometriosis 1986 L TKR 2002 left and right rotator cuff L and R shoulder 2014 plate in L wrist 2015 Hospitalization History Reason Date(Month/Year) see above
--- OUTSIDE RECORDS SUMMARY | 2025-08-02 23:02 | XMS_ITS | Clinical Summary ---
Author Organization [facility] Address [address] [place] [address] Phone Care Team Providers Care Shank Inspector Name Role Phone Tate, Blanca Spencer [employer] Primary Care Provider [phone] Allergies Active Allergy Reactions Criticality Noted Date Comments Codeine 06/15/2016 Hydromorphone Hcl Other (See Comments) 08/19/2016 Could not get her awake Took long time to stabilize her Morphine 06/15/2016 Penicillins 06/15/2016 Propoxyphene N-Acetaminophen 06/15/2016 Medications VENTOLIN HFA 90 mcg/actuation inhaler inhale TWO puffs into lungs FOUR TIMES DAILY NEEDED 6 6 Active allopurinol (ZYLOPRIM) 300 MG tablet TAKE ONE TABLET BY MOUTH EVERY DAY FOR GOUT 6 6 Active DULoxetine (CYMBALTA) [address] capsule TAKE ONE CAPSULE BY MOUTH EVERY DAY 5 6 Active VITAMIN D2 50,000 unit capsule TAKE ONE CAPSULE BY MOUTH EVERY WEEK 6 6 Active levofloxacin (LEVAQUIN) 500 MG tablet TAKE ONE TABLET BY MOUTH EVERY DAY FOR FIVE DAYS 0 6 Active levothyroxine (SYNTHROID, LEVOTHROID) 100 MCG tablet TAKE ONE TABLET BY MOUTH EVERY DAY (DOSE increase) 6 6 Active LORazepam (ATIVAN) 0.5 MG tablet take ONE-HALF TO one tablet BY MOUTH THREE TIMES DAILY NEEDED FOR anxiety 2 6 Active meloxicam (MOBIC) 15 MG tablet TAKE ONE TABLET BY MOUTH EVERY DAY with food 6 6 Active pantoprazole (PROTONIX) [address] tablet TAKE ONE TABLET BY MOUTH EVERY DAY 6 6 Active topiramate (TOPAMAX) 200 MG tablet TAKE ONE TABLET BY MOUTH TWO TIMES A DAY 5 6 Active oxyCODONE-acetamin ophen (PERCOCET) 10-325 mg tablet Take 1 tablet by mouth 6 Active levothyroxine (SYNTHROID, LEVOTHROID) 50 MCG tablet Take 50 mcg by mouth Active fluconazole (DIFLUCAN) 150 MG tablet TAKE ONE TABLET BY MOUTH EVERY DAY FOR FIVE DAYS 0 6 Active hydrOXYzine HCl (ATARAX) 10 MG tablet take 1-2 tablets 1 hour before bed at bedtime, beware of drowsiness and risk of falls. 1 6 Active ondansetron (ZOFRAN-ODT) 4 MG disintegrating tablet TAKE ONE TABLET BY MOUTH EVERY FOUR HOURS NEEDED FOR NAUSEA AND VOMITING 2 6 Active Active Problems Problem Noted Date Diagnosed Date Facet joint disease of lumbosacral region 2015 Chronic midline low back pain 06/15/2016 Thoracic spine pain 06/15/2016 DDD (degenerative disc disease), lumbar 06/15/20 16 Tobacco abuse 06/15/2016 Non morbid obesity 06/15/2016 Family History Medical History Relation Name Comments Stroke Maternal Grandmother Cancer Mother Relation Name Status Comments Maternal Grandmother Mother Social History Tobacco Use Types Packs/Day Years Used Date Smoking Tobacco: Former Cigarettes Smokeless Tobacco: Never Alcohol Use Standard Drinks/Week Comments No 0 (1 standard drink = 0.6 oz pur e alcohol) Comments No Sex and Gender Information Value Date Recorded Sex Assigned at Not on file Legal Sex Female 3:21 PM [employer] Gender Identity Not on file Sexual Orientation Not on file Last Filed Vital Signs Vital Sign Reading Time Taken Comments Blood Pressure 124/88 06/15/2016 3:12 PM CDT Pulse 76 06/15/2016 3:12 PM CDT Temperature 36.7 C (98.1 F) 10/04/2012 2:24 PM [employer] Respiratory Rate 20 06/15/2016 3:12 PM CDT Oxygen Saturation - - Inhaled Oxygen Concentration - - Weight 88.5 kg (195 lb) 06/15/2016 3:12 PM CDT Height 165.1 cm (5' 5 ) 06/15/2016 3:12 PM CDT Body Mass Index 32.45 06/15/2016 3:12 PM CDT Plan of Treatment Health Maintenance Due Date Last Done Comments Annual Depression Screening 1959 Hepatitis C Antibody Screen 1966 Pneumococcal Vaccine Age 50+ (1 of 1 - PCV) 1998 Bone Density 2013 Medicare Subsequent AWV G0439 11/10/2013 RSV Immunization Pa tients or 60+ Years (1 - 1-dose 75+ series) 2023 Flu Vaccine (#1) 05/13/2025 Influenza Vaccine 05/13/2025 Mammogram Discontinued 08/08/2018, 11/11, 03/24/2017 Procedures Procedure Name Priority Date/Time Associated Diagnosis Comments MAMMO DIGITAL DIAGNOSTIC BILATERAL Routine 08/08/2018 11:00 AM [employer] Abnormal mammogram from Last 3 Months or Most Recently Relevant to Health Maintenance Results * Mammography Digital Diagnostic Bilateral (08/08/2018 11:00 AM [employer]) Anatomical Region Laterality Modality Breast N/A Mammogram 08/08/2018 11:3 1 AM [employer] Narrative 08/08/2018 11:45 AM [employer] HISTORY: 68 year old woman presents for 16 months follow-up for right 10:00 palpable abnormality corresponding to dystrophic calcifications likely representing fat necrosis. The patient reports no interval change of palpable abnormality. The patient is post bilateral breast augmentation with silicone implants. REFERENCE EXAMINATION: Comparison is made to prior exam(s) dated December 01, 2017 through March 13, 2015. TECHNIQUE: Bilateral CC and MLO digital images and CC ID and MLO ID digital images with tomosynthesis were obtained. Computer aided detection was utilized during the interpretation of this mammogram. Limited right breast ultrasound was performed. FINDINGS: BREAST DENSITY CATEGORY: Almost entirely fatty Bilateral retropectoral silicone implants are noted and appear intact. Bilateral rim and round calcifications are seen, unchanged since prior exams. In the area of palpable abnormality designated by a skin marker in the right 10:00 breast there is a dystrophic rim calcification with central fat density consistent with oil cyst /fat necrosis that is unchanged. There are no suspicious masses, suspicious microcalcifications or other findings of concern in either breast. There has been no significant interval change. Limited right breast ultrasound Real-time ultrasound was performed through the right 10:00 breast 2 cm from the nipple in the area of palpable abnormality designated by the patient. There is a hypoechoic lesion with rim echogenicity and posterior acoustic shadowing that is avascular measuring 2.7 x 2.0 x 3.2 mm (previously measuring 3.0 x 3.1 x 3.2 mm). This corresponds to the calcification seen mammographically and is probably benign. Right axillary lymph nodes appear normal. Recommend bilateral mammogram with right ultrasound in 12 months. ASSESSMENT: BI-RADS Category 3, Probably Benign Finding. FOLLOW-UP RECOMMENDATION: Followup in 1 year Recommend mammography and right breast ultrasound in 12 months or as clinically warranted, regular physical exam by a healthcare provider and monthly self-breast exam. Disclaimer A negative mammography report should not preclude biopsy if clinically indicated. Any palpable mass should be aspirated, biopsied, or followed clinically. [facility] provide medical services for physician-referred patients. This report was sent to you at the request of the patient. All patient information was entered into a reminder system for patient to receive notification of their next targeted date for screening/ diagnostic mammography. Procedure Note Rashida Ortiz MD - 08/08/2018 HISTORY: 68 year old woman presents for 16 months follow-up for right 10:00 palpable abnormality corresponding to dystrophic calcifications likely representing fat necrosis. The patient reports no interval change of palpable abnormality. The patient is post bilateral breast augmentation with silicone implants. REFERENCE EXAMINATION: Comparison is made to prior exam(s) dated December 01, 2017 through March 13, 2015. TECHNIQUE: Bilateral CC and MLO digital images and CC ID and MLO ID digital images with tomosynthesis were obtained. Computer aided detection was utilized during the interpretation of this mammogram. Limited right breast ultrasound was performed. FINDINGS: BREAST DENSITY CATEGORY: Almost entirely fatty Bilateral retropectoral silicone implants are noted and appear intact. Bilateral rim and round calcifications are seen, unchanged since prior exams. In the area of palpable abnormality designated by a skin marker in the right 10:00 breast there is a dystrophic rim calcification with central fat density consistent with oil cyst /fat necrosis that is unchanged. There are no suspicious masses, suspicious microcalcifications or other findings of concern in either breast. There has been no significant interval change. Limited right breast ultrasound Real-time ultrasound was performed through the right 10:00 breast 2 cm from the nipple in the area of palpable abnormality designated by the patient. There is a hypoechoic lesion with rim echogenicity and posterior acoustic shadowing that is avascular measuring 2.7 x 2.0 x 3.2 mm (previously measuring 3.0 x 3.1 x 3.2 mm). This corresponds to the calcification seen mammographically and is probably benign. Right axillary lymph nodes appear normal. Recommend bilateral mammogram with right ultrasound in 12 months. ASSESSMENT: BI-RADS Category 3, Probably Benign Finding. FOLLOW-UP RECOMMENDATION: Followup in 1 year Recommend mammography and right breast ultrasound in 12 months or as clinically warranted, regular physical exam by a healthcare provider and monthly self-breast exam. Disclaimer A negative mammography report should not preclude biopsy if clinically indicated. Any palpable mass should be aspirated, biopsied, or followed clinically. [facility] provide medical services for physician-referred patients. This report was sent to you at the request of the patient. All patient information was entered into a reminder system for patient to receive notification of their next targeted date for screening/ diagnostic mammography. us Blanca Ybarra [employer] MM IMG ORDERABLES Final Result from Last 3 Months or Most Recently Relevant to Health Maintenance Insurance MEDICARE [facility] Care Teams Shank Inspector Relationship Specialty Start Date End Date Blanca Ybarra NP PCP - General Nurse Practitioner 06/15/16
--- OUTSIDE RECORDS SUMMARY | 2025-08-02 23:02 | XMS_ITS | Patient Health Record ---
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 Name Role Phone Ybarra, [facility] Primary Care Provider [phone] Nickolas Rea Unavailable [phone] [facility] Unavailable Unavailable Anton Arceo Unavailable [phone] Allergies Allergen (clinical drug ingredient) Drug/Non Drug Allergy documented on EMR Reaction Allergy Type Onset Date Status hydromorphone Dilaudid Unknown Drug Allergy Act andrew hydromorphone HYDROmorphone HCl anaphylaxis Drug Allergy Active amoxicillin Amoxicillin anaphylaxis Drug Allergy A ctive codeine Codeine anaphylaxis Drug Allergy Activ e morphine Morphine , , Drug Allergy Active Penicillin Unknown Drug Allergy Active propoxyphene Propoxyphene , , , , Drug Allergy A ctive Results Component Value Reference Range Notes Influenza A/B - [id number] Reviewed date:10/15/2024 04:27:47 PM Interpretation: Performing Lab: Notes/Report: A positive B negative COVID-19 RAPID - [id number] Reviewed date:10/15/2024 04:28:03 PM Interpretation: Performing Lab: Notes/Report: COVID19 negative Thoracolumbar Spine AP/Lat-7 2079 Reviewed date:07/30/2025 01:57:33 PM Interpretation: Performing Lab: Notes/Report: [email or web address]=[id number] Thoracolumbar Spine AP/Lat-7 2079 Reviewed date:07/30/2025 01:57:33 PM Interpretation: Performing Lab: Notes/Report: See Below For Report Thoracolumbar Spine AP/Lat Standing views Read See Below For Report Urine Drug Screen (cup read) - [id number] Reviewed date:02/25/2025 01:39:15 PM Interpretation: Performing Lab: Notes/Report: BZO + Reason For Referral Reason Patient would like t o see Dr. Arceo if possible for eval. Diagnosis 1 Back pain (M54.9) Diagnosis 2 Spinal stenosis (M48 .00) Diagnosis 3 Cervical spondylosis (M47.812) Diagnosis 4 Neck pain (M54.2) Referral Organization [facility] Referring Provider First Name Blanca Referring Provider Last Name Ybarra Referring Provider Speciality Nurse Isrrael daltonioner Referred Organization [facility] Referred Provider nAton Arceo Referred Address [address] [facility] [place],[address], Referred Provider Specialty Neurosurgery General Notes Jayne Palumbo 12/12 10:19:44 AM >See referral note Referral Priority Routine Referral Appointment Date 01/01/2025 Reason Comprehensive cervic al and lumbar injections Diagnosis 1 Cervical radiculopat hy (M54.12) Diagnosis 2 Cervical spinal sten osis (M48.02) Diagnosis 3 Thoracic radiculopat hy (M54.14) Diagnosis 4 Lumbar radiculopathy (M54.16) Referring Provider First Name Anton Referring Provider Last Name Adis Referring Provider Speciality Neurosurge ry Referred Organization [facility] Referred Provider Nickolas Rea Referred Address [address] [place], [place],[address], General Notes Nellie Guthrie 01/15 02:48:10 PM >Mailed NPPW. Referral Priority Routine Reason Comprehensive cervic al and lumbar injections Diagnosis 1 Lumbar radiculopathy (M54.16) Diagnosis 2 Cervical spinal sten osis (M48.02) Diagnosis 3 Cervical radiculopat hy (M54.12) Diagnosis 4 Thoracic radiculopat hy (M54.14) Referral Organization [facility] Referring Provider First Name Anton Referring Provider Last Name Adis Referring Provider Speciality Neurosurge ry Referred Organization [facility] Referred Provider Nickolas Rea Referred Address [address] [facility] [facility] [place],[address] Referred Provider Specialty Intervention al Pain Medicine Referral Priority Routine Medications Medication SIG (Take, Route, Frequency, Duration) Notes Start Date End Date Status Carafate 1 GM Tablet 1 tablet on an empty stomach Orally 4 times a day As needed Active Benzonatate 100 MG Capsule 1 capsule Orally Three times a day prn daytime cough; Duration: 30 05/06/2025 08/04/2025 Active Clindamycin HCl 150 MG Capsule TAKE ONE CAPSULE BY MOUTH THREE TIMES DAILY FOR 7 days Oral; Duration: 7 Days Not-Taking traMADol HCl 50 mg Tablet 2 tablets orally daily; Duration: 30 days As needed 04/25/2025 Active Topiramate 200 mg Tablet TAKE ONE TABLET BY MOUTH TWICE DAILY; Duration: 90 Active Sucralfate 1 GM/10ML Suspension TAKE 10 ML BY MOUTH THREE TIMES DAILY as directed; Duration: 30 Not-Takin g Carisoprodol 350 mg Tablet TAKE ONE TABLET BY MOUTH THREE TIMES DAILY NEEDED FOR MUSCLE SPASMS; Duration: 15 09/06/2024 Not-Taking valACYclovir HCl 1 GM Tablet 1 tablet Orally 3 times a day; Duration: 10 days Not-Taking Albuterol Sulfate HFA 108 (90 Base) MCG/ACT Aerosol Solution INHALE TWO PUFFS into lungs FOUR TIMES DAILY; Duration: 30 Not-Taking Tamiflu 75 MG Capsule 1 capsule Orally T wice a day; Duration: 5 day(s) 10/15/2024 Not-Taking hydrOXYzine HCl 50 mg Tablet TAKE 1/2 TO 1 TABLET BY MOUTH TWICE DAILY NEEDED FOR ANXIETY/itch; Duration: 30 Active DULoxetine HCl 60 mg Capsule Delayed Release Particles TAKE ONE CAPSULE BY MOUTH TWICE DAILY; Duration: 90 Active Fluconazole 150 mg Tablet TAKE ONE TABLET BY MOUTH EVERY DAY FOR 3 DAYS; Duration: 3 Not-Taking Pantoprazole Sodium 40 mg Tablet Delayed Release TAKE ONE TABLET BY MOUTH TWICE DAILY; Duration: 90 Active Levothyroxine Sodium 125 mcg Tablet TAKE ONE TABLET BY MOUTH EVERY DAY; Duration: 90 Active HYDROcodone-Acetaminoph en 5-325 MG Tablet Oral; Duration: 2 Days Not-Taking Cyanocobalamin 1000 MCG/ML Solution inject 1 ML intramusculary DIRECTED EVERY MONTH at home; Duration: 90 Active Doxepin HCl 25 MG Capsule 1 capsule at bedtime Orally Once a day; Duration: 30 day(s) 07/05/2023 Not-Taking LORazepam 0.5 mg Tablet TAKE 2 TABLETS B Y MOUTH EVERY DAY; Duration: 30 06/04/2025 Active Immunizations Vaccine Route Administration Date Status Comme nts COVID-19 Vaccine (Moderna) Dose #1 Unknown 12/10/2020 A dministered COVID-19 Vaccine (Moderna) Dose #2 Unknown 01/07/2021 A dministered COVID-19 Vaccine (Moderna) Dose #3 Unknown 09/10/2021 A dministered Fluarix Quadrivalent Unknown 09/30/2021 Administered Flucelvax Trivalent, Syringe 0.5 mL, PF Unknown 07/16/2024 Refused Influenza (whole), CPT 08870 Inactive Unknown 08/08/2017 Administered Social History Tobacco Use: Social History Observation Description Date Details (start date - stop date) Current Smoker NA - NA Social History Depression Screening Social Info Question Answer Notes depression screening findings Findings Positive (5+ without suicidality) PHQ-9 Little interest or pleasure in doing things Nearly every day Feeling down, depressed, or hopeless Not at all Trouble falling or staying asleep, or sleeping t oo much Several days Feeling tired or having little energy Nearly vandana ry day Poor appetite or overeating Not at all Feeling bad about yourself, or that you are a failure, or have let yourself or your family down Not at all Trouble concentrating on thi ngs, such as reading the newspaper or watching television Not at all Moving or speaking so slowly that other people could have noticed. Or the opposite ? being so fidgety or restless that you have been moving around a lot more than usual Not at all Thoughts that you would be b samson off , or of hurting yourself in some way Not at all Total Score 7 Interpretation Mild Depression Drugs/Alcohol: Social Info Question Answer Notes Drugs Have you used drugs other than those for medical reasons in the past 12 months? No Caffeine Intake: 1-2 cups per day Drug/Alcohol: Social Info Question Answer Notes AUDIT-C (Standard) Did you have a drink containing alcohol in the past year? Yes How often did you have a drink containing alcohol in the past year? Daily or almost daily (4 points) How many drinks did you have on a typical day when you were drinking in the past year? Declined to specify (0 point) How often did you have six or more drinks on one occasion in the past year? Declined to specify (0 point) Points 4 Interpretation Positive Tobacco Use: Social Info Question Answer Notes Tobacco Control (Standard) Tobacco use: Current smoker How many cigarettes a day do you smoke? 11-20 Additional Details Category Social Info Options Details Miscellaneous: Sexually active: no Sexual abuse: no Drugs/Alcohol: Do you smoke marijuana? De nies Do you drink alcohol? Yes zzMigrated Social History Migrated Social History Smoking Status:Ex-smoker (finding) Section Notes: 03/04/2022 03/04/2022 04/13/2022 04/13/2022 04/13/2022 04/13/2022 04/13/2022 Depression screen completed 07/05/2023 score 7 Depression screen completed 07/05/2023 score 7 Depression screen completed 07/05/2023 score 7 Depression screen completed 07/05/2023 score 7 Depression screen completed 07/05/2023 score 7 Depression screen completed 02/23/2024 score 7 Depression screen completed 02/23/2024 score 7 Depression screen completed 02/23/2024 score 7 Depression screen completed 02/23/2024 score 7 04/13/2022 04/13/2022 04/13/2022 04/13/2022 04/13/2022 04/13/2022 04/13/2022 04/13/2022 04/13/2022 Depression screen completed 07/05/2023 score 7 Depression screen completed 07/05/2023 score 7 Depression screen completed 07/05/2023 score 7 Depression screen completed 07/05/2023 score 7 Depression screen completed 07/05/2023 score 7 Depression screen completed 07/05/2023 score 7 Depression screen completed 07/05/2023 score 7 Depression screen completed 07/05/2023 score 7 Problems Problem Type SNOMED Code ICD Code Onset Dates Problem Status W/U Status Risk Notes Problem Mixed hyperlipidemia (116920206) Mixed hyperlipidemia (E78.2) Active confirmed Problem Tobacco user (216561821) Nicotine dependence, cigarettes, uncomplicated (F17.210) Active confirmed Problem Migraine with aura (9268661) Migraine with aura, not intractable, without status migrainosus (G43.109) Active confirmed Problem Headache disorder (950372607) Other headache syndrome (G44.89) Active confirmed Problem Chronic pain syndrome (724381516) Chronic pain syndrome (G89.4) Active confirmed Problem Gastro-esophageal reflux disease without esophagitis (561507753) Gastro-esophageal reflux disease without esophagitis (K21.9) Active confirmed Problem Slow transit constipation (19043949) Slow transit constipation (K59.01) Active confirmed Problem Pain in limb (86857228) Pain in right hand (M79.641) Active confirmed Problem Pain in limb (93756782) Pain in left hand (M79.642) Active confirmed Problem Nausea (190369807) Nausea (R11.0) Active confir med Problem Hand joint pain (282065018) Pain in joints of right hand (M25.541) Active confirmed Problem Hand joint pain (438099718) Pain in joints of left hand (M25.542) Active confirmed Problem Cervical radiculopathy (63298945) Cervical radiculopathy (M54.12) Active confirmed Problem Gastroesophageal reflux disease without esophagitis (728529233) Gastroesophageal reflux disease without esophagitis (K21.9) Active confirmed Problem Anxiety (02262805) Anxiety (F41.9) Active confi rmed Problem Neck pain (00175761) Neck pain (M54.2) Active confirmed Problem Osteoarthritis (315759488) Osteoarthritis, unspecified osteoarthritis type, unspecified site (M19.90) Active confirmed Problem Lumbar radiculopathy (611078672) Lumbar radiculopathy (M54.16) Active confirmed Problem Hypothyroidism (76861207) Hypothyroidism, unspecified type (E03.9) Active confirmed Problem Vitamin B>12< deficiency anaemia (47117371) Anemia due to vitamin B12 deficiency, unspecified B12 deficiency type (D51.9) Active confirmed Problem Lumbar spondylosis (127051369) Lumbar spondylosis (M47.816) Active confirmed Problem Thoracic radiculopathy (02472465) Thoracic radiculopathy (M54.14) Active confirmed Problem Exacerbation of moderate persistent asthma (disorder) (443679917) Moderate persistent asthmatic bronchitis with acute exacerbation (J45.41) Active confirmed Problem Cervical spondylosis (915520972) Cervical spondylosis (M47.812) Active confirmed Problem Joint pain (38933428) Arthralgia, unspecified joint (M25.50) Active confirmed Problem Vitamin B12 deficiency (non anemic) (98883718) Vitamin B 12 deficiency (E53.8) Active confirmed Problem Diverticulitis (33102558) Diverticulitis (K57.92) Active confirmed Problem Acute gastritis (76914596) Other acute gastritis without hemorrhage (K29.00) Active confirmed Problem Leukopenia (07667038) Leukopenia, unspecified type (D72.819) Active confirmed Problem Insomnia (980669155) Insomnia, unspecified type (G47.00) Active confirmed Problem Gout (78191609) Gout, unspecifie d cause, unspecified chronicity, unspecified site (M10.9) Active confirmed Problem Febrile illness (750299277) Febrile illness (R50.9) Active confirmed Problem Spinal stenosis (56633514) Spinal stenosis (M48.00) Active confirmed Problem Wheezing (95033498) Wheezes (R06.2) Active conf irmed Problem Chronic pain (71534714) Chronic pain (G89.29) Active confirmed Problem Candidiasis of mouth (14229970) Oral ilan (B37.0) Active confirmed Problem Cervical spinal stenosis (52370282) Cervical spinal stenosis (M48.02) Active confirmed Problem Anxiety state (050376018) Anxiety disorder, unspecified type (F41.9) Active confirmed Problem Disorder of urinary bladder (11828958) Bladder wall thickening (N32.89) Active confirmed Problem Acute gastritis (disorder) (20347380) Acute gastritis without hemorrhage, unspecified gastritis type (K29.00) Active confirmed Problem Abnormal gait (72415960) Abnormality of gait and mobility (R26.9) Active confirmed Problem Abnormal gait (17538989) Decreased mobility (R26.89) Active confirmed Problem Idiopathic gout (69108136) Acute idiopathic gout of multiple sites (M10.09) Active confirmed Problem Acute headache (finding) (437802827) Acute nonintractable headache, unspecified headache type (R51.9) Active confirmed Problem Encounter for screening for COVID-19 (Z11.52) Active confirmed Problem Primary hypertension (39018758) Primary hypertension (I10) Active confirmed Problem Acute cough (101775919076376816 ) Acute cough (R05.1) Active confirmed Vital Signs Heart Rate 76 /min 01/01/2025 Temperature 97.7 degrees Fahrenheit 01/01/2025 Respiratory Rate 18 /min 01/01/2025 Height-cm 165.1 cm 06/03/2025 Blood pressure diastolic 68 mm Hg 01/01/2025 Oximetry 96 % 01/01/2025 Weight-kg 70.5 kg 06/03/2025 Height 65 in 06/03/2025 Blood pressure systolic 119 mm Hg 01/01/2025 Weight 155.42 lbs 06/03/2025 BMI 25.86 kg/m2 06/03/2025 Procedures Procedure Date Ordered Date Performed Result Body Sit e Epidural, Cervical/ Thoracic , w/ imaging guidance - 64823 03/26/2025 03/26/2025 7-15 Epidural, Lumbar/Sacral ([place]), w/ imaging guidance - 71228 04/09/2025 04/09/2025 07- Epidural, Lumbar/Sacral ([place] cl[place]), w/ imaging guidance - 34415 07/16/2025 07/16/2025 11-04 Encounters Encounter Location Date Provider Diagnosis [facility] [address] [facility] [place] [address] 03/26/2025 Nickolas Rea Cervical radiculopathy M54.12 [facility] [address] [place] [address] 07/16/2025 Nickolas Rea Lumbar radiculopathy M54.16 [facility] [address] [facility] [place] [address] 06/03/2025 Nickolas Rea Chronic pain syndrom e G89.4 ; Cervical radiculopathy M54.12 ; Cervical spondylosis M47.812 ; Cervical spinal stenosis M48.02 ; Lumbar radiculopathy M54.16 ; Lumbar spondylosis M47.816 ; Abnormality of gait and mobility R26.9 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 Z79.899 [facility] [address] [place] [address] 01/01/2025 Anton Arceo Thoracic spine pain M54.6 ; Cervical spinal stenosis M48.02 ; Thoracic radiculopathy M54.14 ; Lumbar radiculopathy M54.16 ; Cervical radiculopathy M54.12 ; Cervical spondylosis M47.812 and Neck pain M54.2 [facility] [address] [place] [address] 10/15/2024 [facility] Influenza A J10.1 ; Thrush B37.0 ; Wheezes R06.2 ; Bronchitis J40 and Cough R05.9 [facility] [address] [place] [address] 08/23/2024 [facility] Otitis media H66.90 ; Otalgia of right ear H92.01 ; Neck pain M54.2 ; Knee pain M25.569 and Chronic pain G89.29 [facility] [address] [facility] [place] [address] 04/09/2025 Nickolas Rea Lumbar radiculopathy M54.16 [facility] [address] [facility] [place] [address] 02/25/2025 Nickolas Rea Chronic pain syndrom e G89.4 ; Cervical radiculopathy M54.12 ; Cervical spondylosis M47.812 ; Cervical spinal stenosis M48.02 ; Lumbar radiculopathy M54.16 ; Lumbar spondylosis M47.816 ; Abnormality of gait and mobility R26.9 and halfway current use of therapeutic drug Z79.899 [facility] [address] [place] [address] 07/16/[address] [facility] [address] [place] [address] 05/06/2025 [facility] [address] [place] [address] 04/17/2025 [facility] [address] [place] [address] 12/03/2024 [facility] Back pain M54.9 and Neck pain M54.2 [facility] [address] [address] 11/09/2024 Blanca Ybarra Bronchitis J40 [address] [address] 08/23/2024 Blanca Ybarra Assessments Encounter Date Diagnosis (ICD Code) Assessment Notes Treatment Notes Treatment Clinical Notes Section Notes 08/23/2024 Otalgia of right ear (ICD-10 - H92.01) 08/23/2024 Otitis media (ICD-10 - H66.90) amoxicillin 10/15/2024 Influenza A (ICD-10 - J10.1) tamiflu 10/15/2024 Thrush (ICD-10 - B37.0) diflucan nystatin 11/09/2024 Bronchitis (ICD-10 - J40) 12/03/2024 Neck pain (ICD-10 - M54.2) 12/03/2024 Back pain (ICD-10 - M54.9) 01/01/2025 Thoracic spine pain (ICD-10 - M54.6) 01/01/2025 Cervical spinal stenosis (ICD-10 - M48.02) The patient's symptoms and clinical findings were reviewed. The patient is having increased neck and back pain. The MRI of the cervical spine was reviewed and discussed with the patient. I suspect the bulk of her symptoms are coming from stenosis at C5-6 and C6-7, she also has facet arthropathy that is contributing. I recommended a referral to the pain clinic for comprehensive cervical injections. Hopefully the injections will provide improvement in her symptoms, if they do not, she will return for a more aggressive discussion. The patient is in agreement to the referral. 02/25/2025 Chronic pain syndrome (ICD-10 - G89.4) I had a nice visit with the patient today regarding her chronic pain issues. Based on her history, PE, and imaging, which I reviewed, her pain appears multifactorial. She has symptoms consistent with cervical and lumbar spondylosis and radiculitis. She has fairly significant stenosis in her cervical spine and quite a bit of degeneration in her lumbar spine. She would like to start with the epidurals and see how she does. We will follow up with her after those and decide if facet-targeted treatments are indicated. She has pain medications and benzodiazepines from elsewhere, so no prescriptions were provided today. The patient continues with chronic pain requiring treatment to help restore function and improve quality of life. Patient is advised that best long-term goals include increased activity, core strengthening, proper weight management, coping strategies, avoidance of painful triggers, and targeted interventional therapy. We will see the patient for routine follow up in accordance with all clinic policies. We will continue to stress nonopioid treatment. 02/25/2025 Cervical radiculopathy (ICD-10 - M54.12) RECOMMEND DIAGNOSTIC CERVICAL EPIDURAL STEROID INJECTION, levels C7-T1 The patient has radicular pain as described above, which has failed conservative treatment including activity modifications, physical/home exercise therapy, NSAIDs, rest and OTC medications. The goal of epidural steroid injections is to reduce pain and inflammation, restoring range of motion and, thereby, facilitating progress in more active treatment programs, and hopefully avoiding surgery. Success of ALEC will be gauged by at least 50% overall improvement in function and reduction in pain. The procedure and risks were discussed with the patient including but not limited to infection, bleeding, neurological complications, side effects from medications, no change in pain, worsening of pain, or even . We also discussed conservative options, surgical options, and medical management with patient as well. The patient indicates understanding and wishes to proceed with the recommended treatment approach. The patient was given written information about the procedure and all questions were answered. 03/26/2025 Cervical radiculopathy (ICD-10 - M54.12) 04/09/2025 Lumbar radiculopathy (ICD-10 - M54.16) 06/03/2025 Chronic pain syndrome (ICD-10 - G89.4) I had a nice visit with the patient today regarding her chronic pain issues. She reports that she has done a bit better after the epidural injections, which I was pleased to hear, especially with her cervical spine is doing better. We did discuss a repeat lumbar epidural steroid injection in a few weeks, which would put her about 3 months from her prior injection. She is interested, and we will get this scheduled in the near future and proceed accordingly. 06/03/2025 Cervical radiculopathy (ICD-10 - M54.12) 07/16/2025 Lumbar radiculopathy (ICD-10 - M54.16) 01/01/2025 Thoracic radiculopathy (ICD-10 - M54.14) 06/03/2025 Cervical spondylosis (ICD-10 - M47.812) 02/25/2025 Cervical spondylosis (ICD-10 - M47.812) 08/23/2024 Neck pain (ICD-10 - M54.2) depomedrol/decadron im toradol 60 mg im 10/15/2024 Wheezes (ICD-10 - R06.2) 10/15/2024 Bronchitis (ICD-10 - J40) z jeet 08/23/2024 Knee pain (ICD-10 - M25.569) 01/01/2025 Lumbar radiculopathy (ICD-10 - M54.16) The patient complains of mid to low back pain. I do not have thoracic or lumbar imaging for review today. I will order an x-ray of a thoracolumbar spine. I recommended a referral to the pain clinic to see if possible comprehensive lumbar injections will help as well. If there is something significant on her x-rays I will call the patient. She is in agreement. ROS reviewed I Elda Torres LPN am scribing for, and in the presence of Anton Arceo MD. I, Anton Arceo, personally performed the services described in this documentation, as scribed by Elda Torres LPN in my presence, and it is both accurate and complete. 02/25/2025 Cervical spinal stenosis (ICD-10 - M48.02) 06/03/2025 Cervical spinal stenosis (ICD-10 - M48.02) 06/03/2025 Lumbar radiculopathy (ICD-10 - M54.16) RECOMMEND THERAPEUTIC LUMBAR EPIDURAL STEROID INJECTION, levels L4-5 The patient reports overall 50% improvement in function and decrease in pain for greater than one month from previous diagnostic ALEC. The patient also reports improvement in tolerance to activities which generally cause pain. Based on the results of previous diagnostic ALEC, a therapeutic ALEC is recommended. Expectation from a successful therapeutic epidural steroid injection is at least 50-70% relief of pain from baseline and evidence of improved function for at least six to eight weeks after delivery. The goal of epidural steroid injections is to reduce pain and inflammation, restoring range of motion and, thereby, facilitating progress in more active treatment programs, and avoiding surgery. The procedure and risks were discussed with the patient including but not limited to infection, bleeding, neurological complications, side effects from medications, no change in pain, worsening of pain, or even . We also discussed conservative options, surgical options, and medical management with patient as well. The patient indicates understanding and wishes to proceed with the recommended treatment approach. The patient was given written information about the procedure and all questions were answered. 02/25/2025 Lumbar radiculopathy (ICD-10 - M54.16) RECOMMEND DIAGNOSTIC LUMBAR EPIDURAL STEROID INJECTION, levels L4-5 The patient has radicular pain as described above, which has failed conservative treatment including activity modifications, physical/home exercise therapy, NSAIDs, rest and OTC medications. The goal of epidural steroid injections is to reduce pain and inflammation, restoring range of motion and, thereby, facilitating progress in more active treatment programs, and hopefully avoiding surgery. Success of ALEC will be gauged by at least 50% overall improvement in function and reduction in pain. The procedure and risks were discussed with the patient including but not limited to infection, bleeding, neurological complications, side effects from medications, no change in pain, worsening of pain, or even . We also discussed conservative options, surgical options, and medical management with patient as well. The patient indicates understanding and wishes to proceed with the recommended treatment approach. The patient was given written information about the procedure and all questions were answered. 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 We will monitor with in-office testing (rapid testing) today and review the results prior to dispensing prescription, as well. Patient has been made aware of this policy. 08/23/2024 Other Questions asked and answered; discharged to home. Questions asked and answered; discharged to home. 10/15/2024 Other Questions asked and answered; discharged to home. 02/25/2025 Other Juany Randall NCMA, am scribing for Dr. Nickolas Rea. I, Dr. Nickolas Rea, personally performed the services described in this documentation, as scribed by DELANEY Philip, and it is both accurate and complete. 06/03/2025 Other Deni Randall am scribing for Dr. Nickolas Rea. I, Nickolas Rea, personally performed the services described in this documentation, as scribed by Deni Strauss, and it is both accurate and complete. Plan Of Treatment Pending Test Test Name Order Date Cervical Spine AP/Lat 2-3 [id number] Next Appt Details Provider Name:Nickolas Rea, 08/19/2025 01:00:00 PM, [address] [place], [address], Insurance Providers Payer Name Payer Address Payer Phone Subscriber Number Group Number Insured Name Patient Relationship to Insured Coverage Start Date Coverage End Date [place] [address] [place] [phone] [id number] Maria L Clark Self - patient is the insured [place] [address] [place] [address] [id number] Ni Clarkna Self - patient is the insured [address] [address] [place] [address] [id number] EduardoMaria L strickland Self - patient is the insured Medications Administered Medication Instructions Date of Administration Dosage Notes DEPO-Medrol 03/23/2022 40 mg [facility] 17793-696 3-1 pt tolerated well/instructed to wait 20 min DEPO-Medrol 04/13/2022 40 mg [facility] 53516-537 3-1 pt tolerated well/instructed to wait 20 min DEPO-Medrol 07/19/2022 40 mg [facility]: [address]-03 Patient tolerated well, advised to wait 20 min at clinic DEPO-Medrol 08/03/2022 40 mg [facility] 2516-6444 -01 pt tolerated well/instructed to wait 20 min DEPO-Medrol 09/10/2022 40 mg [facility] 54835-162 3-01 pt tolerated well/instructed to wait 20 min DEPO-Medrol 07/05/2023 40 mg [facility] 54959-100 3-01 pt tolerated well/instructed to wait 20 min DEPO-Medrol 07/29/2023 40 mg [facility] 11074-510 3-01 pt tolerated well/instructed to wait 20 min DEPO-Medrol 11/11/2023 40 mg [facility] 31730-524 3-01 pt tolerated well/instructed to wait 20 min DEPO-Medrol 12/15/2023 40 mg [facility] 86287-987 3-01 pt tolerated well/instructed to wait 20 min DEPO-Medrol 02/23/2024 40 mg [facility] 54587-944 3-01 pt tolerated well/instructed to wait 20 min DEPO-Medrol 07/16/2024 40 mg [facility] 85892-210 3-01 pt tolerated well/instructed to wait 20 min DEPO-Medrol 08/23/2024 40 mg [facility] 29111-894 3-01 pt tolerated well/instructed to wait 20 min DEPO-Medrol 10/15/2024 40 mg [facility] 99532-579 3-01 pt tolerated well/instructed to wait 20 min dexAMETHasone 03/04/2022 8 mg [facility] 97622-5 65-30 pt tolerated well/instructed to wait 20 min dexAMETHasone 03/23/2022 4 mg [facility] 01010-0 39-30 pt tolerated well/instructed to wait 20 min dexAMETHasone 04/13/2022 4 mg [facility] 34824-7 39-30 pt tolerated well/instructed to wait 20 min dexAMETHasone 07/19/2022 4 mg ND: 47463-405-32 Patient tolerated well, advised to wait 20 min at clinic dexAMETHasone 08/03/2022 4 mg [facility] 81697-9 39-30 pt tolerated well/instructed to wait 20 min dexAMETHasone 09/10/2022 4 mg [facility] 34795-9 239-30 pt tolerated well/instructed to wait 20 min dexAMETHasone 07/05/2023 4 mg [facility] 10935-8 423-00 pt tolerated we/instructed to wait 20 min dexAMETHasone 07/29/2023 4 mg [facility] 96285-0 423-00 pt tolerated well/instructed to wait 20 min dexAMETHasone 11/11/2023 4 mg [facility] 81329-3 423-00 pt tolerated well/instructed to wait 20 min dexAMETHasone 12/15/2023 4 mg [facility] 44475-5 423-00 pt tolerated well/instructed to wait 20 min dexAMETHasone 02/23/2024 4 mg [facility] 70655-2 423-00 pt tolerated well/instructed to wait 20 min dexAMETHasone 07/16/2024 4 mg [facility] 14968-1 423-00 pt tolerated well/instructed to wait 20 min dexAMETHasone 08/23/2024 4 mg [facility] 35359-7 165-02 pt tolerated well/instructed to wait 20 min dexAMETHasone 10/15/2024 4 mg [facility] 01112-1 423-00 pt tolerated well/instructed to wait 20 min DiphenhydrAMINE Citrate 07/16/2024 [address] [place] [address]-50 pt tolerated well/instructed to wait 20 min Ketorolac Tromethamine 03/04/2022 60 mg [facility] 55409-204-50 pt tolerated well/instructed to wait 20 min Ketorolac Tromethamine 04/13/2022 60 mg [facility] 51355-984-04 pt tolerated well/instructed to wait 20 min Ketorolac Tromethamine 09/10/2022 [place] [address]-47 pt tolerated well/instructed to wait 20 min Ketorolac Tromethamine 12/15/2023 60 mg [facility] [address]-04 pt tolerated well/instructed to wait 20 min Ketorolac Tromethamine 02/23/2024 [place] [address]-55 pt tolerated well/instructed to wait 20 min Ketorolac Tromethamine 07/16/2024 [place] [address]-50 pt tolerated well/instructed to wait 20 min Ketorolac Tromethamine 08/23/2024 60 [place] [address]-432-38 pt tolerated well/instructed to wait 20 min Rocephin 07/19/2022 250 mg NDC: 1941-4256-76 Patient tolerated well, advised to wait 20 min at clinic Rocephin 08/03/2022 1 g ndc 4711-4971- 85 pt tolerated well/insructed to wait 20 min Rocephin 11/11/2023 1 g ndc [address] -11 pt tolerated well/instructed to wait 20 min Rocephin 11/22/2023 1 g ndc [address] -11 pt tolerated well/instructed to wait 20 min Cyanocobalamin 04/13/2022 1000 ug NDC: 8870-3624-72 Medication brought with patient to clinic from pharmacy, Patient tolerated well, advised to wait 20 min at clinic Cyanocobalamin 05/25/2022 1000 ug NDC: 48862-090-83 Medication brought to clinic with patient from pharmacy. Patient tolerated well, advised to wait 20 min a clinic Cyanocobalamin 08/03/2022 1000 g vial broug ht to clinic by patient supplied by pharmacy. pt tolerated well/instructed pt to wait 20 min Cyanocobalamin 02/23/2024 1000 ug vial suppl ied by pharm to pt/pt tolerated well/instructed to wait 20 min Medical (General) History Medical History History ICD Code Problem:Anemia (disorder) , Status :: Ac tive Problem:Atrophic vaginitis (disorder) , Status :: Active Problem:Backache (finding) , Status :: A ctive Problem:Depression - motion (qualifier v alue) , Status :: Active Problem:Disease of thyroid gland (disord er) , Status :: Active Problem:Fibrocystic disease of breast (d isorder) , Status :: Active Problem:Hypothyroidism (disorder) , Stat us :: Active Problem:Menopausal flushing (finding) , Status :: Active Problem:Obesity (disorder) , Status :: A ctive Problem:Tobacco user (finding) , Status :: Active Problem:Obesity (disorder) , Status :: A ctive measles mumps Chicken Pox Pneumonia asthma bronchitis sleep apnea diverticulosis Surgical History Surgery Date(Month/Year) left knee replacement shoulder replacement, both rotator cuff tear repair, both left wrist ruptured fallopian tube cholecystectomy appendectomy bowel recontruction gall bladder removal Hospitalization History Reason Date(Month/Year) see surgery hx
--- NOTE | 2025-08-02 23:27 | ECG_ITS ---
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 Measurements Intervals [place] Rate: 72 P: 178 WA: 120 QRS: 48 QRSD: 105 T: 24 QT: 416 QTc: 456 Interpretive Statements SINUS RHYTHM Poor R wave progression NONSPECIFIC T-WAVE ABNORMALITY Compared to ECG 05/05/2020 22:45:12 T-wave abnormality now present Electronically Signed On 08-03-2025 13:49:53 CHANGE MANAGEMENT by Jorge Alberto Maguire M.D. [email or web address]
[2025-08-02] MEDS: HYDROmorphone 0.5 MG/0.5 ML INJ IVP (23:34)
[2025-08-03] VITALS (9 sets, daily range): BP systolic 99–139; BP diastolic 51–86; PULSE 69–93; RESP 14–18; TEMP 36.3–36.9; O2SAT 90–96
[2025-08-03 00:06] LABS: Hematocrit 37.9 % (36-47); Hemoglobin 12.80 g/dL (11.27-16.99); Mean Corpuscular HGB Conc 33.8 g/dL (30-55); Mean Corpuscular Hemoglobin 33.9 pg (27-33); Mean Corpuscular Volume 100.3 fl (85-98); Nucleated Red Blood Cells % 0 %; Platelet Count 271 10^3/cmm (157-399); Red Blood Count 3.78 10^6/uL (3.85-5.65); White Blood Count 8.75 10^3/uL (3.29-11.43)
[2025-08-03 00:22] LABS: Anion Gap 17.3 (5-19); Blood Urea Nitrogen 7 mg/dL (8-23); Calcium 8.4 mg/dL (8.5-10.5); Carbon Dioxide 19 mmol/L (22-29); Chloride 99 mmol/L (98-107); Glucose 92 mg/dL (65-115); Osmolality Calculated 272 mOsm/kg (285-295); Potassium 3.3 mmol/L (3.5-5.1); Sodium 132 mmol/L (136-145)
--- NOTE | 2025-08-03 00:31 | XRR_ITS ---
PROCEDURE INFORMATION: Exam: XR Chest Exam date and time: 08/03/2025 12:39 AM Age: 75 years old Clinical indication: Screening exam; Pre-operative exam; Prior surgery; Surgery date: 6+ months; Surgery type: Bilat total shoulder; Pre op for ortho hip surgery; Additional info: Preop TECHNIQUE: Imaging protocol: Radiologic exam of the chest. Views: 1 view. COMPARISON: CR XR chest 1V portable [id number] 05/05/2020 10:29 PM FINDINGS: Lungs: Unremarkable. No consolidation. Pleural spaces: No focal consolidation, pleural effusion, or pneumothorax. Heart/Mediastinum: Unremarkable. No cardiomegaly. Bones/joints: Bilateral reverse shoulder arthroplasties. XR/XR chest 1V portable [id number] IMPRESSION: No focal consolidation, pleural effusion, or pneumothorax.
--- NOTE | 2025-08-03 00:36 | PM.HP ---
Providers/Chief Complaint Primary Care Provider: Blanca Ybarra APN Chief Complaint: FALL POSSIBLE L HIP FX History of Present Illness Maria L Clark is a 75 year old female Medications/Allergies Home Medications ?Medication ?Instructions ?Recorded ?Confirmed ?Last Taken ?Type B-complex with vitamin C See Rx Instructions .Route .monthly 05/27/20 05/31/24 08/14/22 History albuterol sulfate 90 mcg/actuation 2 puff inhalation Q6H PRN 05/27/20 05/31/24 08/14/22 History aerosol inhaler Shortness Of Breath duloxetine 60 mg capsule,delayed 60 mg PO DAILY 05/27/20 05/31/24 08/15/22 History release (Cymbalta) levothyroxine 125 mcg capsule 125 mcg PO DAILY 05/27/20 05/31/24 08/17/22 07:00 History lorazepam 0.5 mg tablet 1 mg PO .bedtime 05/27/20 05/31/24 08/16/22 History sucralfate 1 gram tablet (Carafate) 1 gm PO .every 6 hours PRN Acid 05/27/20 05/31/24 08/14/22 History Reflux topiramate 200 mg tablet 400 mg PO DAILY 05/27/20 05/31/24 08/14/22 History metronidazole 500 mg tablet 500 mg PO TID 14 days #42 tabs 08/26/22 05/31/24 Unknown Rx pantoprazole 40 mg tablet,delayed 40 mg PO BID 14 days #28 tabs 08/26/22 05/31/24 Unknown Rx release (Protonix) cyanocobalamin (vitamin B-12) mcg IM 04/24/24 05/31/24 Unknown History 1,000 mcg/mL injection solution cyclobenzaprine 5 mg tablet 5 mg PO TID PRN 04/24/24 05/31/24 Unknown History diclofenac sodium 1 % topical gel 2 g topical QID #100 grams 04/24/24 05/31/24 Unknown Rx (Voltaren Arthritis Pain) tramadol 50 mg tablet mg PO 04/24/24 05/31/24 Unknown History Allergies Allergy/AdvReac Type Severity Reaction Status Date / Time codeine Allergy ALGY-Hives Verified 04/24/24 10:05 hydromorphone (From Dilaudid) Allergy ALGY-Anaphy Verified 04/24/24 10:05 laxis morphine Allergy ALGY-Hives Verified 04/24/24 10:05 Penicillins Allergy Unknown Verified 04/24/24 10:05 PFSH Acute PFSH: Family History Mother Breast cancer diagnosed at age 65 Unknown No pertinent family history colon cancer, uterine or ovarian cancer, heart disease, hypertension, hypercholesterolemia, stroke, diabetes, or thyroid issues Social History Smoking and tobacco/nicotine status: never used tobacco/nicotine Alcohol intake: current Alcohol intake frequency: 3 or more drinks per day Alcohol type: beer Vitals/I&O/Wt Last Vital Signs Temp 97.9 F 08/02/25 22:45 Pulse 69 08/02/25 22:45 Resp 16 08/02/25 23:00 BP 152/81 08/02/25 22:45 Pulse Ox 98 08/02/25 23:00 Weight last 48 hrs Weight 75.75 kg Data 08/02/25 23:58 08/02/25 23:58 A&P Assessment and plan 1. Hip fracture: START OF MEDICAL REPORT Heather Byrd D.O. Board Certified Internal Medicine Chief Complaint: Right hip pain History of Present Illness: The patient is a 77-year-old female who appears slightly intoxicated with alcohol and it was hard of hearing who presents with chief complaint of fall which she sustained at approximate 9 PM on August 02, 2025. She states that she tripped on her cat and fell on her right side. She denies head trauma or loss of consciousness. She has an abrasion on her right forearm but aside from this he endorses no other injury/trauma. She currently rates her pain as 10 out of 10 although her outward appearance is not come close to being congruent with the subjective rating of pain. She is unable to qualify the pain. She states is been constant since that time of onset. The patient presents for further evaluation I have explained to the patient (if they are coherent, able to comprehend, and/or are communicative) and/or their family member(s), friend(s), guardian(s), and/or other individual(s) present on the patient?s behalf (if present) the patient?s current medical condition, the patient?s current plan of care, and I have answered all questions posed to me. Family History: Cancer Physical Examination: General: -Alert. -No acute distress. -No dyspnea. -No tachypnea. Head: -Atraumatic. -Normocephalic. Eyes: -Pupils equally round and reactive to light and accommodation. -Extraocular muscles intact. Neurological: -Cranial nerves II-XII intact. Neck: -No jugular venous distention. -No thyromegaly. -No cervical lymphadenopathy. Heart: -Regular rate. -Regular rhythm. -No murmurs. -No gallops. -No rubs. Lungs: -No wheeze. -No rhonchi. -No rales. Abdomen: -Normal bowel sounds in all four quadrants. -No rebound. -No guarding. -No tenderness. Extremities: -2/4 pulse in all four extremities. -No clubbing. -No cyanosis. -No edema. -No calf tenderness present bilaterally. -Negative Rosa?s sign bilaterally. Musculoskeletal: -5/5 bilateral upper extremity strength. -5/5 bilateral lower extremity strength. -Sensorium of bilateral upper extremities are equal and intact. -Sensorium of bilateral lower extremities are equal and intact. Additional Details / Additional Findings / Exceptions / Miscellaneous: Pertinent Laboratory Results / Pertinent Radiology Results / Pertinent Diagnostic Results / Pertinent Vital Signs: Blood pressure 152/81, heart rate 69, respiration 16, temperature 97.9?, 98% room air. Sodium 132, potassium 3.3, MCV 100.3 Social History: Caffeine: Coffee Tobacco: Active smoker Alcohol: Patient consumes a sixpack of beer nightly Pets: Yes + Allergies: Penicillin, codeine, documented history of allergy to morphine which he denies Code Status: Full Admission Date: 12:33 AM on August 03, 2025 Discharge Date: History of Present Illness / Hospital Course Summary: The patient is a 77-year-old female who appears slightly intoxicated with alcohol and it was hard of hearing who presents with chief complaint of fall which she sustained at approximate 9 PM on August 02, 2025. She states that she tripped on her cat and fell on her right side. She denies head trauma or loss of consciousness. She has an abrasion on her right forearm but aside from this he endorses no other injury/trauma. She currently rates her pain as 10 out of 10 although her outward appearance is not come close to being congruent with the subjective rating of pain. She is unable to qualify the pain. She states is been constant since that time of onset. The patient presents for further evaluation Surgical History: Cholecystectomy appendectomy, left knee surgery ?2 numerous bilateral shoulder surgeries, previous imaging demonstrates hysterectomy which he denies Assessment / Plan + Medical History: Status post fall with resultant right femoral neck fracture. Orthopedic surgery consult. Will provide when necessary analgesia. Check PT/INR, PTT, chest x-ray?portable. IV normal saline 75 ML?s per hour. From a risk stratification standpoint, from a cardiac standpoint the patient denies history of myocardial infarction, CHF, cardiac stenting, atrial for ablation. From a pulmonary standpoint, the patient has a history of COPD but she is not O2 dependent. She actively smokes. The patient does not currently take any anticoagulants or antiplatelet agents. The patient denies a history of adverse reaction to anesthesia. Patient does have a documented history of prior TIA. With all the after mentioned factors, there are no contraindications to proceeding with surgery however the patient is graded at least moderate risk given the after mentioned factors, her age, and her medical comorbidities Diverticulosis Anxiety Hypothyroidism Muscle spasm Alcohol overuse versus abuse. Patient denies a history of seizure withdrawal. Seizure precautions. Check ethanol level. Check urine drug screen COPD, not O2 dependent GERD with history of gastritis Tobacco abuse. The patient will be counseled regarding smoking cessation History of TIA Depression Macrocytosis Osteoarthritis Hyponatremia, chronic. Likely due to beer potomania. We will monitor sodium level intermittently Hypokalemia. Monitor potassium level intermittently and supplemented as necessary DVT prophylaxis. Bilateral SCD Consultations: Orthopedic surgery will need to be consultative on the morning of August 03, 2025 Disposition: To be determined + Discharge Diet: Regular Discharge Activity: Discharge Condition: Discharge Medications: Time Spent with Patient: Greater than 30 minutes. Heather Byrd D.O. Board Certified Internal Medicine END OF MEDICAL REPORT PDMP PDMP Reviewed: Not Reviewed Attestations Medical Necessity Statement*: Disposition: To be determined. Greater than 48 hours. Coding Level of Care Code Acute Code for [facility] Diagnoses Hip fracture S72.009A
[2025-08-03 00:42] LABS: INR 1.17 (0.8-1.2); Prothrombin Time 15.70 SECONDS (12.1-14.9)
[2025-08-03 01:08] LABS: PCP Screen Urine Negative (Negative)
[2025-08-03 01:28] LABS: Partial Thromboplastin Time 27.1 SECONDS (23.9-36.7)
[2025-08-03] MEDS: HYDROmorphone 0.5 MG/0.5 ML INJ 1 MG IVP ×5 (02:05→21:33)
[2025-08-03 04:54] LABS: Hemoglobin 11.80 g/dL (11.27-16.99)
--- NOTE | 2025-08-03 11:13 | P.PN_ITS ---
Subjective 2 Subjective: She reports pain is currently under control. She is not short of breath. No chest pain or discomfort. She is hungry. Vitals/I&O/Wt Last Vital Signs Temp 97.6 F 08/03/25 07:54 Pulse 93 08/03/25 07:54 Resp 18 08/03/25 07:54 BP 132/86 08/03/25 07:54 Pulse Ox 92 08/03/25 07:54 O2 Del Method Nasal Cannula 08/03/25 07:54 O2 Flow Rate 2 08/03/25 08:00 08/02/25 08/03/25 08/03/25 22:59 06:59 14:59 Intake Total 0 / 0 Output Total 500 / 500 Balance -500 / -500 0 / 0 Weight last 48 hrs Weight 72.121 kg Weight 72.575 kg Weight 75.75 kg Physical Exam 2 Const: COMMON NORMALS: patient oriented x3 and alert GENERAL APPEARANCE: c ooperative ORIENTATION/CONSCIOUSNESS: Yes awake HENMT: COMMON NORMALS: oropharynx normal Neck/C-Spine: COMMON NORMALS: no JVD Resp: COMMON NORMALS: normal respiratory effort and clear to auscultation bilaterally AUSCULTATION: clear to auscultation bilaterally Cardio: COMMON NORMALS: no JVD, regular rhythm, S1 normal heart sound present, S2 normal heart sound present and No murmurs present (Cardio) RHYTHM: regular rhythm HEART SOUNDS: S1 normal heart sound present and S2 normal heart sound present GI: COMMON NORMALS: Normal to inspection, nondistended, normoactive bowel sounds present, Soft to palpation and non-tender PALPATION: Yes Soft to palpation Extremity: COMMON NORMALS: no joint enlargement and no pedal edema N ARRATIVE EXTREMITY EXAM: Foreshortened RLE Neuro: COMMON NORMALS: patient oriented x3 and moves all extremities S ENSORIUM/ORIENTATION: Yes alert Skin: COMMON NORMALS: no rashes or lesions noted GENERAL SKIN EXAM: no rashes or lesions noted Urinary Catheter Management: Kay: Cath Placed During This Visit: yes Reason for Continuing Indwelling Catheter: Required Immobilization for Trauma or Surgery or Anesthesia Urinary Catheter Date of Insertion: 08/03/25 Urinary Catheter Time of Insertion: 00:00 Data 08/03/25 04:35 08/02/25 23:58 A&P Assessment and plan 1. Hip fracture: Status post fall with resultant right femoral neck fracture. Per discussion with Memo her plan has been for repair of right hip fracture. Discussed with surgeon, plan for likely repair tomorrow. Resume diet. N.p.o. after midnight. Reviewed CBC, hemoglobin 11.8, platelets 271. Reviewed chemistry, mild hypokalemia, replaced. Recheck CBC and chemistry. Monitor for anemia. Heparin for VTE prophylaxis for now, monitor for risk of acute blood loss anemia. SCDs. Hold further IV fluid for now. Monitor for risk of fluid overload. Acetaminophen, IV Dilaudid as needed for pain. From a risk stratification standpoint, from a cardiac standpoint the patient denies history of myocardial infarction, CHF, cardiac stenting, atrial for ablation. From a pulmonary standpoint, the patient has a history of COPD but she is not O2 dependent. She actively smokes. The patient does not currently take any anticoagulants or antiplatelet agents. The patient denies a history of adverse reaction to anesthesia. Patient does have a documented history of prior TIA. With all the after mentioned factors, there are no contraindications to proceeding with surgery however the patient is graded at least moderate risk given the after mentioned factors, her age, and her medical comorbidities Add incentive spirometer. Pending PT assessment postoperatively and post discharge planning. She lives alone. Names Bishnu Rodriguez of [facility] as surrogate decision maker in case she could not make decisions on her own. Plan: Diverticulosis Anxiety Hypothyroidism: Resume levothyroxine Muscle spasm Alcohol overuse versus abuse. Patient denies a history of seizure withdrawal. Seizure precautions. Check ethanol level. Check urine drug screen COPD, not O2 dependent. Add breathing treatments. GERD with history of gastritis: Resume pantoprazole Tobacco abuse. The patient will be counseled regarding smoking cessation History of TIA Depression Macrocytosis Osteoarthritis Hyponatremia, chronic. Likely due to beer potomania. We will monitor sodium level intermittently Hypokalemia. Monitor potassium level intermittently and supplemented as necessary DVT prophylaxis. Bilateral SCD PDMP PDMP Reviewed: Not Reviewed Attestations 2 Medical Necessity Statement*: Continue admission for assessment and management of right hip fracture in a lady with multiple underlying morbidities as above. and High MDM includes amount and/or complexity of data reviewed/ordered [ resulted lab(s)/test(s), ordered lab(s)/test(s) and other healthcare professional discussion] and described risk of complication, morbidity or mortality of management as documented Diagnoses Hip fracture S72.094I
--- NOTE | 2025-08-03 12:41 | PM.CONSULT ---
Providers/Reason For Consult Consulting Physician/Specialty*: Hospitalist Reason for Consult*: Right femoral neck fracture Attending Physician: Kendell Machuca Primary Care Provider: Blanca Ybarra APN History of Present Illness History of Present Illness Maria L Clark is a 75 year old female she tripped over her cat and fell onto her right hip suffering immediate pain at the site and has not been able to ambulate since. She denies hitting her head, no LOC, she is not on blood thinners. She is normally able to ambulate without a walker or without issue. Review of Systems General: Reports: 10 or more systems reviewed and unremarkable except in HPI and below Const: Denies: fever(s), chills or body aches Eyes: Denies: change in vision Card: Denies: chest pain, dyspnea on exertion or orthopnea Resp: Denies: dyspnea, productive cough or wheezing GI: Denies: abdominal pain, nausea or vomiting Musc: Denies: neck pain, back pain, extremity pain, joint pain, joint swelling or limited range of motion Skin/Breast: Denies: changes in skin color or dry skin Neuro: Denies: numbness in extremities or weakness in extremities Psych: Denies: anxiety or depression Sunny/Lymph: Denies: easy bruising or easy bleeding Medications/Allergies Home Medications ?Medication ?Instructions ?Recorded ?Confirmed ?Last Taken ?Type albuterol sulfate 90 mcg/actuation 2 puff inhalation Q6H PRN 05/27/20 08/03/25 08/14/22 History aerosol inhaler Shortness Of Breath levothyroxine 125 mcg capsule 125 mcg PO DAILY 05/27/20 08/03/25 08/02/25 08:00 History lorazepam 0.5 mg tablet 1 mg PO .bedtime 05/27/20 08/03/25 08/01/25 20:00 History topiramate 200 mg tablet 400 mg PO DAILY 05/27/20 08/03/25 08/14/22 History pantoprazole 40 mg tablet,delayed 40 mg PO BID 14 days #28 tabs 08/26/22 08/03/25 08/02/25 09:00 Rx release (Protonix) duloxetine 60 mg capsule,delayed 60 mg PO BID 08/03/25 08/03/25 08/02/25 09:00 History release hydroxyzine HCl 50 mg tablet See Rx Instructions .Route .COMPLEX 08/03/25 08/03/25 08/02/25 10:00 History tramadol 50 mg tablet 100 mg PO DAILY 08/03/25 08/03/25 Unknown History Allergies Allergy/AdvReac Type Severity Reaction Status Date / Time codeine Allergy ALGY-Hives Verified 04/24/24 10:05 hydromorphone (From Dilaudid) Allergy ALGY-Anaphy Verified 04/24/24 10:05 laxis morphine Allergy ALGY-Hives Verified 04/24/24 10:05 Penicillins Allergy Unknown Verified 04/24/24 10:05 Current Medications Generic Name Dose Route Start Last Admin Trade Name Freq PRN Reason Stop Dose Admin Hydromorphone HCl 1 mg 08/03/25 01:15 08/03/25 06:47 Hydromorphone 0.5 Mg/0.5 Ml Inj IVP 1 mg Q4H PRN Administration pain Sodium Chloride 1,000 mls @ 75 mls/hr 08/03/25 01:15 08/03/25 02:05 Sodium Chloride 0.9% IV 75 mls/hr On Hold: 08/03/25 11:22 .[id number] LUZ Administration PFSH Acute PFSH: Family History Mother Breast cancer diagnosed at age 65 Unknown No pertinent family history colon cancer, uterine or ovarian cancer, heart disease, hypertension, hypercholesterolemia, stroke, diabetes, or thyroid issues Social History Smoking and tobacco/nicotine status: never used tobacco/nicotine Alcohol intake: current Alcohol intake frequency: 3 or more drinks per day Alcohol type: beer Vitals/I&O/Wt Last Vital Signs Temp 97.6 F 08/03/25 07:54 Pulse 93 08/03/25 07:54 Resp 18 08/03/25 07:54 BP 132/86 08/03/25 07:54 Pulse Ox 92 08/03/25 07:54 O2 Del Method Nasal Cannula 08/03/25 07:54 O2 Flow Rate 2 08/03/25 08:00 08/02/25 08/03/25 08/03/25 22:59 06:59 14:59 Intake Total 0 / 0 Output Total 500 / 500 Balance -500 / -500 0 / 0 Weight last 48 hrs Weight 159 lb Weight 160 lb Weight 167 lb Physical Exam Narrative: Right leg shortened Rotated Alert and oriented x 3 Head is normocephalic atraumatic Respirations are intact No evidence of any rashes or infection 5/5 strength in bilateral upper and lower extremities Urinary Catheter Management: Kay: Cath Placed During This Visit: yes Reason for Continuing Indwelling Catheter: Required Immobilization for Trauma or Surgery or Anesthesia Urinary Catheter Date of Insertion: 08/03/25 Urinary Catheter Time of Insertion: 00:00 Data 08/03/25 04:35 08/02/25 23:58 A&P Assessment and plan 1. Closed fracture of right hip, initial encounter: Plan to do right hip hemiarthroplasty in the AM tomorrow. N.p.o. after midnight PDMP PDMP Reviewed: Not Reviewed Consult Attestations Medical Necessity Statement: Per primary service Coding Level of Care Code Acute Code for Chg Fwd Diagnoses Closed fracture of right hip, initial encounter S72.001A Encounter type: initial encounter Fracture type: closed Laterality: right
[2025-08-03] MEDS: heparin 5,000 unit/mL INJ 1 mL 5000 UNIT SUBCUT ×2 (13:15→22:53)
--- NOTE | 2025-08-03 17:19 | USR_ITS ---
PROCEDURE INFORMATION: Exam: US Right Noninvasive Physiologic Study of the Lower Extremity Arteries, Limited Exam date and time: 08/03/2025 6:14 PM Age: 75 years old Clinical indication: Pain; Leg, lower; Broken right hip. Surgery in the morning. ; Additional info: Rle TECHNIQUE: Imaging protocol: Right Limited bilateral noninvasive physiologic studies of lower extremity arteries. Waveforms were obtained and evaluated. Images were documented and archived. Exam is limited. COMPARISON: CT abdomen pelvis w con* [id number] 08/10/2022 1:51 PM FINDINGS: Right Ankle-Brachial Index: Posterior tibial artery-1.35. Dorsalis pedis-1.53. Digit. 0.78 Left Ankle-Brachial Index: Not provided. US/CV ankle brachial index [id number] IMPRESSION: Right ankle-brachial index results above. No additional images provided.
[2025-08-04] VITALS (26 sets, daily range): BP systolic 89–154; BP diastolic 52–108; PULSE 88–104; RESP 14–22; TEMP 36.4–37.1; O2SAT 92–99; BMI 26.4
[2025-08-04] MEDS: HYDROmorphone 0.5 MG/0.5 ML INJ 1 MG IVP ×2 (02:29→06:20)
[2025-08-04 04:29] LABS: Hematocrit 36.1 % (36-47); Hemoglobin 11.70 g/dL (11.27-16.99); Mean Corpuscular HGB Conc 32.4 g/dL (30-55); Mean Corpuscular Hemoglobin 33.6 pg (27-33); Mean Corpuscular Volume 103.7 fl (85-98); Nucleated Red Blood Cells % 0 %; Platelet Count 228 10^3/cmm (157-399); Red Blood Count 3.48 10^6/uL (3.85-5.65); White Blood Count 5.73 10^3/uL (3.29-11.43)
[2025-08-04 04:53] LABS: Anion Gap 12.3 (5-19); Blood Urea Nitrogen 10 mg/dL (8-23); Calcium 8.5 mg/dL (8.5-10.5); Carbon Dioxide 24 mmol/L (22-29); Chloride 102 mmol/L (98-107); Glucose 123 mg/dL (65-115); Magnesium 2.0 mg/dL (1.7-2.3); Osmolality Calculated 278 mOsm/kg (285-295); Potassium 4.3 mmol/L (3.5-5.1); Sodium 134 mmol/L (136-145)
--- NOTE | 2025-08-04 07:41 | W.PM.OPSUD ---
Surgery/Procedure H&P Update DATE OF PROCEDURE: August 04, 2025 DATE H&P PERFORMED: 08/03/25 H&P UPDATE INFORMATION: I have reviewed H&P completed within last 30 days, I have examined patient prior to procedure and No changes to prior documentation PLANNED PROCEDURE: Operation Date: 08/04/25 08:30 Proposed Procedures p Hemiarthroplasty Hip Bipolar Arthroplasty(Right) - Chaz Luis DO
--- NOTE | 2025-08-04 07:52 | ANES.PREANE2 ---
Pre-Anesthetic Assessment Height/Weight: Height 1.65 m Weight 72.121 kg Temp Pulse Resp BP Pulse Ox O2 Del Method O2 Flow Rate 98.1 F 99 18 122/71 94 Nasal Cannula 2 08/04/25 07:36 08/04/25 07:36 08/04/25 07:36 08/04/25 07:36 08/04/25 07:36 08/04/25 07:36 08/04/25 07:36 Operation Date: 08/04/25 08:30 Proposed Procedures p Hemiarthroplasty Hip Bipolar Arthroplasty(Right) - Chaz Luis, Familial anesthetic complications: None Was Beta Chapo taken within 24 hours: N/A Was Clonidine taken within 24 hours: N/A Last intake: Intake Last Liquid Date 08/04/25 Last Liquid Time 00:00 Last Solid Date 08/03/25 Last Solid Time 18:00 Social Tobacco and No alcohol Exam alert, oriented x 3, clear to auscultation bilaterally and regular rate & rhythm Airway Mallampati: Class I Dentition: full Pulmonary Chronic Obstructive Pulmonary Disease CV/HEM Hypertension GI Gastroesophageal Reflux Disease Metabolic Thyroid Disease Anesthetic Plan ASA status: 3 Anesthesia: General Risk of > 500 ml blood loss (7ml/kg in children): No Medications/Allergies Home Medications ?Medication ?Instructions ?Recorded ?Confirmed ?Last Taken ?Type albuterol sulfate 90 mcg/actuation 2 puff inhalation Q6H PRN 05/27/20 08/03/25 08/14/22 History aerosol inhaler Shortness Of Breath levothyroxine 125 mcg capsule 125 mcg PO DAILY 05/27/20 08/03/25 08/02/25 08:00 History lorazepam 0.5 mg tablet 1 mg PO .bedtime 05/27/20 08/03/25 08/01/25 20:00 History topiramate 200 mg tablet 400 mg PO DAILY 05/27/20 08/03/25 08/14/22 History pantoprazole 40 mg tablet,delayed 40 mg PO BID 14 days #28 tabs 08/26/22 08/03/25 08/02/25 09:00 Rx release (Protonix) duloxetine 60 mg capsule,delayed 60 mg PO BID 08/03/25 08/03/25 08/02/25 09:00 History release hydroxyzine HCl 50 mg tablet See Rx Instructions .Route .COMPLEX 08/03/25 08/03/25 08/02/25 10:00 History tramadol 50 mg tablet 100 mg PO DAILY 08/03/25 08/03/25 Unknown History Allergies Allergy/AdvReac Type Severity Reaction Status Date / Time codeine Allergy ALGY-Hives Verified 04/24/24 10:05 hydromorphone (From Dilaudid) Allergy ALGY-Anaphy Verified 04/24/24 10:05 laxis morphine Allergy ALGY-Hives Verified 04/24/24 10:05 Penicillins Allergy Unknown Verified 04/24/24 10:05 Current Medications Generic Name Dose Route Start Last Admin Trade Name Freq PRN Reason Stop Dose Admin Hydromorphone HCl 1 mg 08/03/25 01:15 08/04/25 06:20 Hydromorphone 0.5 Mg/0.5 Ml Inj IVP 1 mg Q4H PRN Administration pain Sodium Chloride 1,000 mls @ 75 mls/hr 08/03/25 01:15 08/03/25 02:05 Sodium Chloride 0.9% IV 75 mls/hr .[id number] LUZ Administration Pantoprazole Sodium 40 mg 08/03/25 17:00 08/03/25 16:[address] 40 Mg Tablet PO 40 mg BID LUZ Administration PFSH Anesthesia Family History Mother Breast cancer diagnosed at age 65 Unknown No pertinent family history colon cancer, uterine or ovarian cancer, heart disease, hypertension, hypercholesterolemia, stroke, diabetes, or thyroid issues Social History Smoking and tobacco/nicotine status: never used tobacco/nicotine Alcohol intake: current Alcohol intake frequency: 3 or more drinks per day Alcohol type: beer Data Anesthesia 08/04/25 03:40 08/04/25 03:40 Short CBC 08/02/25 08/03/25 08/04/25 Range/Units 23:58 04:35 03:40 WBC 8.75 5.73 (3.29-11.43) 10^3/uL Hgb 12.80 11.80 11.70 (11.27-16.99) g/dL Hct 37.9 36.1 (36-47) % MCV 100.3 H 103.7 H (85-98) fl Plt Count 271 228 (157-399) 10^3/cmm Neut % (Auto) 76.7 75.0 % Neut # (Auto) 6.72 4.30 (1.8-7.7) 10^3/uL BMP 08/02/25 08/04/25 23:58 03:40 Sodium 132 L 134 L Potassium 3.3 L 4.3 Chloride 99 102 Carbon Dioxide 19 L 24 BUN 7 L 10 Creatinine 0.7 0.7 Glucose 92 123 H Calcium 8.4 L 8.5 Coags 08/02/25 23:58 PT 15.70 H INR 1.17 APTT 27.1
--- NOTE | 2025-08-04 08:52 | XRR_ITS ---
PROCEDURE INFORMATION: Exam: XR Right Hip Exam date and time: 08/04/2025 9:52 AM Age: 75 years old Clinical indication: Device placement; Other: Total hip; Prior surgery; Surgery date: Post-operative (0-2 days); Surgery type: RT hip in or; Additional info: Intra-op TECHNIQUE: Imaging protocol: Radiologic exam of the right hip. Views: 1 view hip with pelvis when performed. COMPARISON: CR (PELVIS, ) 08/02/2025 10:48 PM FINDINGS: Bones/joints: A single cross-table image of the left hip demonstrates a total hip arthroplasty. Hardware appears intact without complication. No periprosthetic fracture. Alignment is anatomic. Expected subcutaneous gas. Soft tissues: See Bones/joints finding. XR/XR hip RT 1V wo/w pel [id number] IMPRESSION: Intraoperative total hip arthroplasty without apparent complication.
--- NOTE | 2025-08-04 09:39 | P.OP_ITS ---
Operative Report Date of procedure: August 04, 2025 Pre-op diagnosis: Right femoral neck fracture Post-op diagnosis: same Procedure done: Right hip hemiarthroplasty Surgeon: Chaz Luis DO Estimated blood loss (mL): 20 Procedure: Right hip hemiarthroplasty Patient was brought to the operative suite after undergoing anesthesia patient was placed in the lateral decubitus position. All areas of impingement were well-padded. Patient was prepped and draped in the normal sterile fashion. Skin incision was made over the right hip. The IT band was split. Modified Cordon approach was used. The abductors and the capsule were taken anteriorly. The fracture was identified. Femoral neck cut was made using a saw approximately 1 fingerbreadth above the lesser trochanter. The femoral head was then removed. Measured to be 45. The attention was then brought to the femur. The box hinge and lock attacher was used. The canal finder was used. The lateralizer was used. And then the canal was broached to 7. A size 7 stem from [place] with a negative for neck length and a 45 mm head were then reduced. He felt to be stable in all ranges of motion. Intraoperative x-ray was taken to confirm. Wounds were irrigated and wound was closed in a layered fashion the abductors and the capsule were closed with FiberWire. The IT band was closed with 0 Vicryl. Skin was closed with 2-0 Vicryl and kerrie. Sterile dressings were applied and patient was transferred to the PACU in stable condition.
--- NOTE | 2025-08-04 10:46 | P.PN_ITS ---
Subjective 2 Subjective: Recovering postoperatively. Gradually waking up. No complaints at this time. Appears comfortable. Vitals/I&O/Wt Last Vital Signs Temp 98.7 F 08/04/25 09:40 Pulse 97 08/04/25 10:20 Resp 17 08/04/25 10:20 BP 148/88 08/04/25 10:20 Pulse Ox 99 08/04/25 10:20 O2 Del Method Simple Mask 08/04/25 10:20 O2 Flow Rate 10 08/04/25 10:20 08/03/25 08/04/25 08/04/25 22:59 06:59 14:59 Intake Total 480 / 960 1250 / 1250 Output Total 1750 / 1750 175 / 1925 Balance -1270 / -790 -175 / -965 1225 / 1225 Weight last 48 hrs Weight 72.121 kg Weight 72.121 kg Weight 72.575 kg Weight 75.75 kg Physical Exam 2 Const: GENERAL APPEARANCE: cooperative OTHER: Recovering from anesthesia. HENMT: COMMON NORMALS: oropharynx normal Neck/C-Spine: COMMON NORMALS: no JVD Resp: COMMON NORMALS: normal respiratory effort and clear to auscultation bilaterally AUSCULTATION: clear to auscultation bilaterally Cardio: COMMON NORMALS: no JVD, regular rhythm, S1 normal heart sound present, S2 normal heart sound present and No murmurs present (Cardio) RHYTHM: regular rhythm HEART SOUNDS: S1 normal heart sound present and S2 normal heart sound present GI: COMMON NORMALS: Normal to inspection, nondistended, normoactive bowel sounds present, Soft to palpation and non-tender PALPATION: Yes Soft to palpation Extremity: COMMON NORMALS: no joint enlargement and no pedal edema N ARRATIVE EXTREMITY EXAM: Post op RLE. Le/ankle/foot perfused. Skin: COMMON NORMALS: no rashes or lesions noted GENERAL SKIN EXAM: no rashes or lesions noted Urinary Catheter Management: Kay: Cath Placed During This Visit: yes Reason for Continuing Indwelling Catheter: Required Immobilization for Trauma or Surgery or Anesthesia Urinary Catheter Date of Insertion: 08/03/25 Urinary Catheter Time of Insertion: 00:00 Data 08/04/25 03:40 08/04/25 03:40 A&P Assessment and plan 1. Closed fracture of right hip, initial encounter: Status post right hip fracture repair, recovering after surgery in PACU. Status post right hip hemiarthroplasty. Discussed with orthopedic surgeon. Reviewed hip x-ray. Reassess blood pressures, so far maintaining. Diet has been resumed. DC IV fluid, monitor for risk of fluid overload. Continue pain control, acetaminophen. IV Dilaudid as needed for severe breakthrough pain, monitor risk of respiratory depression. Fall at home with resultant right femoral neck fracture. Pending PT assessment. Discussed with watch caser. Consideration of return home versus needing rehabilitation at SNF. Will benefit from alcohol cessation.Monitor for scope withdrawal. Reviewed CBC, BMP. Additional VTE prophylaxis once safe per Ortho surgery. SCDs. From a risk stratification standpoint, from a cardiac standpoint the patient denies history of myocardial infarction, CHF, cardiac stenting, atrial for ablation. From a pulmonary standpoint, the patient has a history of COPD but she is not O2 dependent. She actively smokes. The patient does not currently take any anticoagulants or antiplatelet agents. The patient denies a history of adverse reaction to anesthesia. Patient does have a documented history of prior TIA. With all the after mentioned factors, there are no contraindications to proceeding with surgery however the patient is graded at least moderate risk given the after mentioned factors, her age, and her medical comorbidities Incentive spirometer. She lives with significant other. Names Bishnu Rodriguez of [facility] as surrogate decision maker in case she could not make decisions on her own. Plan: Diverticulosis Anxiety: Resume duloxetine Hypothyroidism: Resumed levothyroxine Muscle spasm Alcohol overuse versus abuse. Patient denies a history of seizure withdrawal. Seizure precautions. Check ethanol level. Check urine drug screen COPD, not O2 dependent. Add breathing treatments. GERD with history of gastritis: Resume pantoprazole Tobacco abuse. The patient will be counseled regarding smoking cessation History of TIA Depression Macrocytosis Osteoarthritis Hyponatremia, chronic. Likely due to beer potomania. We will monitor sodium level intermittently Hypokalemia. Monitor potassium level intermittently and supplemented as necessary DVT prophylaxis. Bilateral SCD PDMP PDMP Reviewed: Not Reviewed Attestations 2 Medical Necessity Statement*: Continue admission for postoperative management after right hip fracture and right hemiarthroplasty, as well as PT assessment, post discharge planning, monitoring for alcohol withdrawal. and High MDM includes amount and/or complexity of data reviewed/ordered [ resulted lab(s)/test(s) and other healthcare professional discussion] and described risk of complication, morbidity or mortality of management as documented Diagnoses Closed fracture of right hip, initial encounter S72.001A Encounter type: initial encounter Fracture type: closed Laterality: right
--- NOTE | 2025-08-04 11:00 | ANE.PACU2 ---
Inpatient post-anesthesia follow up: Airway intact: Yes Vital signs: Temperature 98.5 F Pulse Rate 104 Respiratory Rate 16 Blood Pressure 130/79 Pulse Oximetry 92 Oxygen Delivery Me thod Nasal Cannula Oxygen Flow Rate 5 Fraction of Inspir ed Oxygen Hydration adequate: Yes Nausea and vomiting: No Pain level: 1 Mental status: Baseline
[2025-08-05] VITALS (8 sets, daily range): BP systolic 92–119; BP diastolic 55–74; PULSE 90–106; RESP 15–18; TEMP 36.6–37.1; O2SAT 90–98; BMI 29.7
[2025-08-05 05:09] LABS: Hematocrit 29.6 % (36-47); Hemoglobin 9.60 g/dL (11.27-16.99); Mean Corpuscular HGB Conc 32.4 g/dL (30-55); Mean Corpuscular Hemoglobin 34.2 pg (27-33); Mean Corpuscular Volume 105.3 fl (85-98); Nucleated Red Blood Cells % 0 %; Platelet Count 192 10^3/cmm (157-399); Red Blood Count 2.81 10^6/uL (3.85-5.65); White Blood Count 5.70 10^3/uL (3.29-11.43)
[2025-08-05 05:34] LABS: Anion Gap 11.9 (5-19); Blood Urea Nitrogen 8 mg/dL (8-23); Calcium 8.2 mg/dL (8.5-10.5); Carbon Dioxide 23 mmol/L (22-29); Chloride 100 mmol/L (98-107); Glucose 126 mg/dL (65-115); Osmolality Calculated 272 mOsm/kg (285-295); Potassium 3.9 mmol/L (3.5-5.1); Sodium 131 mmol/L (136-145)
--- NOTE | 2025-08-05 13:27 | P.PN_ITS ---
Subjective 2 Subjective: Patient was sleeping when I walked in her room she is resting comfortably. No complaints of pain. Vitals/I&O/Wt Last Vital Signs Temp 98.4 F 08/05/25 11:58 Pulse 96 08/05/25 11:58 Resp 18 08/05/25 11:58 BP 113/71 08/05/25 11:58 Pulse Ox 94 08/05/25 11:58 O2 Del Method Nasal Cannula 08/05/25 11:58 O2 Flow Rate 2 08/05/25 11:58 08/04/25 08/05/25 08/05/25 22:59 06:59 14:59 Intake Total 1120 / 2590 500 / 3090 350 / 350 Output Total 900 / 925 425 / 1350 Balance 220 / 1665 75 / 1740 350 / 350 Weight last 48 hrs Weight 179 lb Weight 159 lb Physical Exam 2 Narrative: Wound clean dry intact Urinary Catheter Management: Kay: Cath Placed During This Visit: yes, but has since been removed by the nurse Reason for Continuing Indwelling Catheter: Decision to DC Catheter Urinary Catheter Date of Insertion: 08/03/25 Urinary Catheter Time of Insertion: 00:00 Date Urinary Catheter Removed: 08/05/25 Time Urinary Catheter Discontinued: 06:25 Data 08/05/25 04:48 08/05/25 04:48 A&P Assessment and plan 1. Closed fracture of right hip, initial encounter: Postop day 1 right hip hemiarthroplasty Up with therapy PDMP PDMP Reviewed: Not Reviewed Attestations 2 Medical Necessity Statement*: Per primary service Coding Level of Care Code Acute Code for [facility] Fwd Diagnoses Closed fracture of right hip, initial encounter S72.001A Encounter type: initial encounter Fracture type: closed Laterality: right
--- NOTE | 2025-08-05 13:30 | P.PN_ITS ---
Subjective 2 Subjective: She is awake. About to work with physical therapy. Pain has been under control. She states has been using incentive parameter. No trouble breathing. Vitals/I&O/Wt Last Vital Signs Temp 98.4 F 08/05/25 11:58 Pulse 96 08/05/25 11:58 Resp 18 08/05/25 11:58 BP 113/71 08/05/25 11:58 Pulse Ox 94 08/05/25 11:58 O2 Del Method Nasal Cannula 08/05/25 11:58 O2 Flow Rate 2 08/05/25 11:58 08/04/25 08/05/25 08/05/25 22:59 06:59 14:59 Intake Total 1120 / 2590 500 / 3090 350 / 350 Output Total 900 / 925 425 / 1350 Balance 220 / 1665 75 / 1740 350 / 350 Weight last 48 hrs Weight 81.193 kg Weight 72.121 kg Physical Exam 2 Const: COMMON NORMALS: patient oriented x3 and alert GENERAL APPEARANCE: c ooperative ORIENTATION/CONSCIOUSNESS: Yes awake HENMT: COMMON NORMALS: oropharynx normal Neck/C-Spine: COMMON NORMALS: no JVD Resp: COMMON NORMALS: normal respiratory effort and clear to auscultation bilaterally AUSCULTATION: clear to auscultation bilaterally Cardio: COMMON NORMALS: no JVD, regular rhythm, S1 normal heart sound present, S2 normal heart sound present and No murmurs present (Cardio) RHYTHM: regular rhythm HEART SOUNDS: S1 normal heart sound present and S2 normal heart sound present GI: COMMON NORMALS: Normal to inspection, nondistended, normoactive bowel sounds present, Soft to palpation and non-tender PALPATION: Yes Soft to palpation Extremity: COMMON NORMALS: no joint enlargement and no pedal edema N ARRATIVE EXTREMITY EXAM: Post op dressing right hip, without bleeding, bruising. Le/ankle/foot perfused. Neuro: COMMON NORMALS: patient oriented x3 and moves all extremities S ENSORIUM/ORIENTATION: Yes alert Skin: COMMON NORMALS: no rashes or lesions noted GENERAL SKIN EXAM: no rashes or lesions noted Urinary Catheter Management: Kay: Cath Placed During This Visit: yes, but has since been removed by the nurse Reason for Continuing Indwelling Catheter: Decision to DC Catheter Urinary Catheter Date of Insertion: 08/03/25 Urinary Catheter Time of Insertion: 00:00 Date Urinary Catheter Removed: 08/05/25 Time Urinary Catheter Discontinued: 06:25 Data 08/05/25 04:48 08/05/25 04:48 A&P Assessment and plan 1. Closed fracture of right hip, initial encounter: Status post right hip fracture repair. Required significant assistance during PT evaluation today. Discussed with PT, transplant case manager, nursing. Will benefit from SNF rehabilitation, although has not been receptive to the idea. Unsafe to return home and current condition requiring quite bit of assistance, could not safely manage by herself. Continue work/mobilization with PT. Case management will work with her regarding options for discharge with consideration of SNF, consideration of additional support in case returning home. Status post right hip hemiarthroplasty. . Duloxetine resumed, monitor for risk of worsening anemia with SNRI. Discussed noted acute anemia hemoglobin of 9.6. Reassess blood counts. Check Hemoccult. Watch for worsening anemia with aspirin. Encouraged incentive spirometer. Alcohol avoidance. Monitor for any signs of withdrawal. Continue pain control, acetaminophen. IV Dilaudid as needed for severe breakthrough pain, monitor risk of respiratory depression. Reviewed CBC, BMP. Mild hyponatremia, sodium 131. Repeat CBC, BMP. She lives with significant other or a friend nearby, names Bishnu Rodriguez of [facility] as surrogate decision maker in case she could not make decisions on her own. Plan: Diverticulosis Anxiety: duloxetine Hypothyroidism: Resumed levothyroxine Muscle spasm Alcohol overuse versus abuse. Patient denies a history of seizure withdrawal. Seizure precautions. Check ethanol level. Check urine drug screen COPD, not O2 dependent. breathing treatments. GERD with history of gastritis: Resumed pantoprazole Tobacco abuse. Encourage cessation. Will add nicotine supplement as needed. History of TIA Depression Macrocytosis Osteoarthritis Hyponatremia, chronic. Reviewed chemistry. Mild hyponatremia possibly 131. Check chemistry.Regular diet. Hypokalemia. Monitor potassium level intermittently and supplemented as necessary DVT prophylaxis. Bilateral SCD PDMP PDMP Reviewed: Not Reviewed Attestations 2 Medical Necessity Statement*: Continue admission for postoperative management after right hip fracture and right hemiarthroplasty, as well as PT assessment, post discharge planning, monitoring for alcohol withdrawal. and High MDM includes amount and/or complexity of data reviewed/ordered [ resulted lab(s)/test(s), ordered lab(s)/test(s) and other healthcare professional discussion] as documented Diagnoses Closed fracture of right hip, initial encounter S72.001A Encounter type: initial encounter Fracture type: closed Laterality: right
[2025-08-06 04:00] VITALS: BP 110/59; PULSE 105; RESP 16; TEMP 36.8; O2SAT 96
[2025-08-06 06:12] LABS: Hematocrit 26.4 % (36-47); Hemoglobin 8.50 g/dL (11.27-16.99); Mean Corpuscular HGB Conc 32.2 g/dL (30-55); Mean Corpuscular Hemoglobin 33.6 pg (27-33); Mean Corpuscular Volume 104.3 fl (85-98); Nucleated Red Blood Cells % 0 %; Platelet Count 182 10^3/cmm (157-399); Red Blood Count 2.53 10^6/uL (3.85-5.65); White Blood Count 6.19 10^3/uL (3.29-11.43)
[2025-08-06 06:24] LABS: Anion Gap 12.6 (5-19); Blood Urea Nitrogen 10 mg/dL (8-23); Calcium 8.6 mg/dL (8.5-10.5); Carbon Dioxide 22 mmol/L (22-29); Chloride 98 mmol/L (98-107); Glucose 127 mg/dL (65-115); Osmolality Calculated 269 mOsm/kg (285-295); Potassium 3.6 mmol/L (3.5-5.1); Sodium 129 mmol/L (136-145)
[2025-08-06 07:24] VITALS: BP 108/68; PULSE 105; RESP 18; TEMP 36.6; O2SAT 90
[2025-08-06 09:50] VITALS: PULSE 105; RESP 18; O2SAT 93
--- NOTE | 2025-08-06 10:22 | P.PN_ITS ---
Subjective 2 Subjective: Patient is resting comfortably Vitals/I&O/Wt Last Vital Signs Temp 97.9 F 08/06/25 07:24 Pulse 105 H 08/06/25 07:24 Resp 18 08/06/25 07:24 BP 108/68 08/06/25 07:24 Pulse Ox 90 08/06/25 07:24 O2 Del Method Room Air 08/06/25 07:24 O2 Flow Rate 2 08/06/25 04:00 08/05/25 08/06/25 08/06/25 22:59 06:59 14:59 Intake Total 240 / 710 480 / 480 Output Total 150 / 150 Balance 90 / 560 480 / 480 Weight last 48 hrs Weight 171 lb Weight 179 lb Physical Exam 2 Narrative: Resting comfortably wound clean dry and intact Urinary Catheter Management: Kay: Cath Placed During This Visit: yes, but has since been removed by the nurse Reason for Continuing Indwelling Catheter: Decision to DC Catheter Urinary Catheter Date of Insertion: 08/03/25 Urinary Catheter Time of Insertion: 00:00 Date Urinary Catheter Removed: 08/05/25 Time Urinary Catheter Discontinued: 06:25 Data 08/06/25 05:51 08/06/25 05:51 A&P Assessment and plan 1. Closed fracture of right hip, initial encounter: Patient is status post right hip hemiarthroplasty. Discharge planning PDMP PDMP Reviewed: Last Reviewed 08/06/25 09:36 EST by Chaz Luis DO Attestations 2 Medical Necessity Statement*: Per primary service Coding Level of Care Code Acute Code for Chg Fwd Diagnoses Closed fracture of right hip, initial encounter S72.001A Encounter type: initial encounter Fracture type: closed Laterality: right
--- NOTE | 2025-08-06 11:03 | PM.DCS ---
Discharge Providers Date of Admission: 08/03/25 00:29 Date of Discharge: August 06, 2025 Attending Provider at Admission: Heather Byrd DO Attending Provider at Discharge: Kendell Machuca Primary Care Provider: Blanca Ybarra APN Diagnoses at Discharge Discharge Diagnosis 1. Closed fracture of right hip, initial encounter: Reason for Visit Reason for Visit: FALL POSSIBLE L HIP FX Brief History: The patient is a 77-year-old female who appears slightly intoxicated with alcohol and it was hard of hearing who presents with chief complaint of fall which she sustained at approximate 9 PM on August 02, 2025. She states that she tripped on her cat and fell on her right side. She denies head trauma or loss of consciousness. She has an abrasion on her right forearm but aside from this he endorses no other injury/trauma. She currently rates her pain as 10 out of 10 although her outward appearance is not come close to being congruent with the subjective rating of pain. She is unable to qualify the pain. She states is been constant since that time of onset. The patient presents for further evaluation I have explained to the patient (if they are coherent, able to comprehend, and/or are communicative) and/or their family member(s), friend(s), guardian(s), and/or other individual(s) present on the patient?s behalf (if present) the patient?s current medical condition, the patient?s current plan of care, and I have answered all questions posed to me. Hospital Course Hospital Course She was monitored for any signs of alcohol withdrawal, underwent right hemiarthroplasty on 08/04 and an uneventful procedure. Some post fracture and postoperative anemia, hemoglobin down to 8.5 with 325 mg prophylactic aspirin on board. Decreased dose to 81 mg twice daily please follow-up blood counts reassess anemia. She states has previously had upper and lower endoscopy several years ago. Hemoccult has been ordered, but has not had any melanotic or bloody stools and no stool so far to collect sample. Initially requiring significant assist to get up and ambulate, this has been improving, now requiring some supervision/minimal assistance, the overall does not ambulate a great distance, but did walk 20 feet. Discussed with her would benefit from rehabilitation at SNF, but she is adamant she declines this and that she is returning home. She states that she has a significant other at home who will assist her and her needs. Case management is reaching out to significant other to confirm available assistance after discharge and she is being set up with home health. Discussed with her to maintain fall precautions, avoid any alcohol. She is asked to discontinue hydroxyzine, lorazepam, tramadol, or other medications that may affect her mental status or contribute to falls, and hold duloxetine for next 2 weeks and discontinue tramadol so as not to contribute to risk of bleeding. Physical Exam Urinary Catheter Management: Kay: Cath Placed During This Visit: yes, but has since been removed by the nurse Reason for Continuing Indwelling Catheter: Decision to DC Catheter Urinary Catheter Date of Insertion: 08/03/25 Urinary Catheter Time of Insertion: 00:00 Date Urinary Catheter Removed: 08/05/25 Time Urinary Catheter Discontinued: 06:25 Discharge Data Studies Completed and Pending Completed Studies During Hospitalization Category Date Time Status XR chest 1V portable [id number] Stat Exams 08/03/25 00:31 Completed XR hip RT 1V wo/w pel [id number] Routine Exams 08/04/25 08:52 Completed XR hip RT 2-3V wo/w pel* [id number] Stat Exams 08/02/25 22:46 Completed US MAX [CV ankle brachial index 38171] Routine Ultrasound 08/03/25 17:19 Completed Pending at discharge Category Date Time Status Occult Blood Stool [Immunochemical Fecal OCB] Routine Lab 08/05/25 13:30 Uncollected Radiology Impressions Hip/Pelvis X-Ray 08/02/25 22:46 IMPRESSION: Mildly displaced right transcervical femoral neck fracture. Chest X-Ray 08/03/25 00:31 IMPRESSION: No focal consolidation, pleural effusion, or pneumothorax. Ankle Brachial Index 08/03/25 17:19 IMPRESSION: Right ankle-brachial index results above. No additional images provided. Hip X-Ray 08/04/25 08:52 IMPRESSION: Intraoperative total hip arthroplasty without apparent complication. Laboratory Results WBC 6.19 10^3/uL (3.29-11.43) 08/06/25 05:51 RBC 2.53 10^6/uL (3.85-5.65) L 08/06/25 05:51 Hgb 8.50 g/dL (11.27-16.99) L 08/06/25 05:51 Hct 26.4 % (36-47) L 08/06/25 05:51 MCV 104.3 fl (85-98) H 08/06/25 05:51 MCH 33.6 pg (27-33) H 08/06/25 05:51 MCHC 32.2 g/dL (30-55) 08/06/25 05:51 RDW 13.6 % (12.1-15.1) 08/06/25 05:51 Plt Count 182 10^3/cmm (157-399) 08/06/25 05:51 MPV 10.0 fL (7.4-10.4) 08/06/25 05:51 Neut % (Auto) 70.6 % 08/06/25 05:51 Lymph % (Auto) 15.0 % 08/06/25 05:51 Laurens % (Auto) 10.5 % 08/06/25 05:51 Eos % (Auto) 3.1 % 08/06/25 05:51 Baso % (Auto) 0.5 % 08/06/25 05:51 Neut # (Auto) 4.37 10^3/uL (1.8-7.7) 08/06/25 05:51 Lymph # (Auto) 0.9 10^3/uL (0.8-4.8) 08/06/25 05:51 Laurens # (Auto) 0.7 10^3/uL (0.2-0.9) 08/06/25 05:51 Eos # (Auto) 0.2 10^3/uL (0.0-0.8) 08/06/25 05:51 Baso # (Auto) 0.0 10^3/uL (0.0-0.1) 08/06/25 05:51 Nucleated RBC % (auto) 0 % 08/06/25 05:51 Nucleated RBCs # 0.0 /100WBC 08/06/25 05:51 PT 15.70 SECONDS (12.1-14.9) H 08/02/25 23:58 INR 1.17 (0.8-1.2) 08/02/25 23:58 APTT 27.1 SECONDS (23.9-36.7) 08/02/25 23:58 Sodium 129 mmol/L (136-145) L 08/06/25 05:51 Potassium 3.6 mmol/L (3.5-5.1) 08/06/25 05:51 Chloride 98 mmol/L (98-107) 08/06/25 05:51 Carbon Dioxide 22 mmol/L (22-29) 08/06/25 05:51 Anion Gap 12.6 (5-19) 08/06/25 05:51 BUN 10 mg/dL (8-23) 08/06/25 05:51 Creatinine 0.7 mg/dL (0.5-0.9) 08/06/25 05:51 GFR Calculation Not Reportable 08/06/25 05:51 Glucose 127 mg/dL (65-115) H 08/06/25 05:51 Calculated Osmolality 269 mOsm/kg (285-295) L 08/06/25 05:51 Calcium 8.6 mg/dL (8.5-10.5) 08/06/25 05:51 Magnesium 2.0 mg/dL (1.7-2.3) 08/04/25 03:40 Urine Opiates Screen Negative ng/mL (Negative) 08/03/25 00:50 Ur Barbiturates Screen Negative ng/mL (Negative) 08/03/25 00:50 Ur Phencyclidine Scrn Negative ng/mL (Negative) 08/03/25 00:50 Ur Amphetamines Screen Negative ng/mL (Negative) 08/03/25 00:50 U Benzodiazepines Scrn Positive ng/mL (Negative) H 08/03/25 00:50 Urine Cocaine Screen Negative ng/mL (Negative) 08/03/25 00:50 U Marijuana (THC) Screen Negative ng/mL (Negative) 08/03/25 00:50 Urine Ethyl Alcohol 185 mg/dL (0-10) H 08/03/25 00:50 Vitals Last Vital Signs Temp 97.9 F 08/06/25 07:24 Pulse 105 H 08/06/25 07:24 Resp 18 08/06/25 07:24 BP 108/68 08/06/25 07:24 Pulse Ox 90 08/06/25 07:24 O2 Del Method Room Air 08/06/25 07:24 O2 Flow Rate 2 08/06/25 04:00 Discharge Plan Discharge Patient Disposition: Home Health Service Condition: Stable Prescriptions: New hydrocodone-acetaminophen 5-325 mg tablet 1 - 2 tab PO .Q4-6H Qty: 40 0RF aspirin 81 mg capsule 81 mg PO BID Qty: 60 0RF Continued levothyroxine 125 mcg capsule 125 mcg PO DAILY topiramate 200 mg tablet 400 mg PO DAILY albuterol sulfate 90 mcg/actuation HFA aerosol inhaler 2 puff INHALATION Q6H PRN (Reason: Shortness Of Breath) pantoprazole [Protonix] 40 mg tablet,delayed release (DR/EC) 40 mg PO BID 14 Days Qty: 28 0RF duloxetine 60 mg capsule,delayed release(DR/EC) 60 mg PO BID Discontinued lorazepam 0.5 mg tablet 1 mg PO .bedtime hydroxyzine HCl 50 mg tablet See Rx Instructions .ROUTE .COMPLEX Rx Instructions: TAKE 1/2 TO 1 TABLET BY MOUTH TWICE DAILY NEEDED FOR ANXIETY/itch tramadol 50 mg tablet 100 mg PO DAILY [employer] 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 Follow-up regarding some worsening anemia as discussed. Hemoglobin has come down to 8.5. You are continuing on aspirin but please discontinue tramadol and hold duloxetine for the next 2 weeks. Please have your primary doctor reassess blood counts and further follow-up anemia. Continue strict fall precautions. Avoid any alcohol. Avoid Benadryl, lorazepam or other medications that may affect your balance or mental status. You are being discharged from the hospital today during which time you have been under the care of Dr. Luis. You had a femoral neck fracture. You were treated for this injury with hip hemiarthroplasty. You may resume you normal diet (including any special diets as directed by your primary doctor) as well as your home medications. You should follow up with you primary doctor if you have any questions regarding medication you took prior to your stay in the hospital. You may take your pain medication as prescribed. After the first few days, take your pain medication as needed. Do not drive or drink alcohol while taking your pain medication. Your injury may increase your risk of developing a blood clot,or DVT, in your arm or leg. This could potentially dislodge and travel to your lungs and become a life threatening condition called apulmonary embolus,or PE. You have been prescribed aspirin to be taken to prevent this. Frequent movement of the legs will also help prevent this from occurring. If you develop any new or worsening cough, chestpain, bloody sputum or shortness of breath, call 911 or go to the EmergencyRoom. Always keep your surgical incision/dressing clean and dry. If you experience increasing pain at your incision site, redness, swelling, increasing discharge, foul odors, or fevers (greater than 100.4), night sweats or chills you should call the office at the above number. If you feel this is an emergency you should be evaluated in the Emergency Department of a nearby hospital. Orthopedic Patient Instructions Summary: Weight Bearing: Weight-bear as tolerated Activity: As tolerated with anterior precautions. Diet: Regular. Wound Care: Keep dressing clean and dry. Anticoagulation: Aspirin Pain Medication: Take only as needed. Ice, rest and elevation will be of great benefit. Please plan to follow-up [facility] Dr Luis in 2 weeks. You will need to call the clinic [phone] to schedule this visit. Thank you far allowing me to participate in your care. Do not hesitate to call the office with any questions or concerns. Discharge Attestations Time Spent in Discharge Care*: greater than 30 min Quality Metrics Clinical Quality Measures [ No reported AMI, CVA or VTE this stay] Coding Level of Care Code 61876 Total time (in minutes) for Discharge: 45 Diagnoses Closed fracture of right hip, initial encounter S72.001A Encounter type: initial encounter Fracture type: closed Laterality: right
[2025-08-06 11:19] VITALS: BP 100/62; PULSE 99; RESP 18; TEMP 36.7; O2SAT 92
[2025-08-06 13:28] VITALS: BP 100/62; PULSE 91; RESP 18; TEMP 36.7; O2SAT 92
== END 2025-08-06 13:31 | disposition home health service (06) | DRG 522 ==
LOC: ER 08-03 00:45 → MEDSURG 08-03 00:46
PROVIDERS: Orthopaedic Surgery; Admitting Provider Internal Medicine; Emergency Provider Student in an Organized Health Care Education/Training Program; PCP Nurse Practitioner Family; Visit Provider Internal Medicine
PROC: 0SRR0JZ Replacement of Right Hip Joint, Femoral Surface with Synthetic Substitute, Open Approach (ICD-10-PCS; principal; 2025-08-04 08:00)
DX: S72.001A Fracture of unspecified part of neck of right femur, initial encounter for closed fracture (principal); E87.1 Hypo-osmolality and hyponatremia; W01.0XXA Fall on same level from slipping, tripping and stumbling without subsequent striking against object, initial encounter; F10.129 Alcohol abuse with intoxication, unspecified; Y90.6 Blood alcohol level of 120-199 mg/100 ml; H91.90 Unspecified hearing loss, unspecified ear; S50.811A Abrasion of right forearm, initial encounter; K57.90 Diverticulosis of intestine, part unspecified, without perforation or abscess without bleeding; F41.9 Anxiety disorder, unspecified; E03.9 Hypothyroidism, unspecified; M62.838 Other muscle spasm; K21.9 Gastro-esophageal reflux disease without esophagitis; F32.A Depression, unspecified; D75.89 Other specified diseases of blood and blood-forming organs; M19.90 Unspecified osteoarthritis, unspecified site; E87.6 Hypokalemia; Z86.73 Personal history of transient ischemic attack (TIA), and cerebral infarction without residual deficits
CPT/HCPCS: 36415; 51702; 71045; 73501; 73502; 80048; 80306; 80307; 83735; 85018; 85025; 85610; 85730; 93005; 93922; 96372; 96374; 97116; 97161; 97167; 97530; 99285; C1776; J0330; J1100; J1171; J1644; J2405; J2704; J3010; J3490; J7030; J9999

== ENCOUNTER 2025-09-11 16:58 | Emergency (ER) | payer MEDICARE, BC, OTHER, SELFPAY ==
--- OUTSIDE RECORDS SUMMARY | 2025-09-11 17:03 | XMS_ITS | Clinical Summary ---
Author Organization [facility] Address [address] [place] [address] Phone Care Team Providers Care Data Control Clerk Name Role Phone Tate, Blanca Spencer MARKETING FINANCE SPECIALIST Primary Care Provider [phone] Allergies Active Allergy Reactions Criticality Noted Date [...] on file Legal Sex Female 3:21 PM DIRECTOR UTILIZATION MANAGEMENT Gender Identity Not on file Sexual Orientation Not on file Last Filed Vital Signs Vital Sign Reading Time Taken Comments Blood Pressure 124/88 06/15/2016 3:12 PM CDT Pulse 76 06/15/2016 3:12 PM CDT Temperature 36.7 C (98.1 F) 10/04/2012 2:24 PM DIRECTOR UTILIZATION MANAGEMENT Respiratory Rate 20 06/15/2016 3:12 PM CDT [...] DIGITAL DIAGNOSTIC BILATERAL Routine 08/08/2018 11:00 AM DIRECTOR UTILIZATION MANAGEMENT Abnormal mammogram from Last 3 Months or Most Recently Relevant to Health Maintenance Results * Mammography Digital Diagnostic Bilateral (08/08/2018 11:00 AM DIRECTOR UTILIZATION MANAGEMENT) Anatomical Region Laterality Modality Breast N/A Mammogram 08/08/2018 11:3 1 AM DIRECTOR UTILIZATION MANAGEMENT Narrative 08/08/2018 11:45 AM DIRECTOR UTILIZATION MANAGEMENT HISTORY: 68 year old woman presents for [...] be aspirated, biopsied, or followed clinically. [facility] [place] provide medical services for physician-referred [...] be aspirated, biopsied, or followed clinically. [facility] [place] provide medical services for physician-referred patients. This report was sent to you at the request of the patient. All patient information was entered into a reminder system for patient to receive notification of their next targeted date for screening/ diagnostic mammography. us Blanca Ybarra MARKETING FINANCE SPECIALIST MM IMG ORDERABLES Final Result from Last 3 Months or Most Recently Relevant to Health Maintenance Insurance MEDICARE [facility] Care Teams Data Control Clerk Relationship Specialty Start Date End Date Blanca Ybarra NP PCP - General Nurse Practitioner 06/15/16
--- OUTSIDE RECORDS SUMMARY | 2025-09-11 17:03 | XMS_ITS | Patient Health Record ---
Author Organization [facility] Address [address] [place] [address] Care Team Providers Care User Experience Designer Name Role Phone Ybarra, [facility] Primary Care Provider ERNST Rendon Unavailable [phone] JANE ZAVALETA Unavailable [phone] Allergies Allergen (clinical drug ingredient) Drug/Non Drug Allergy documented on EMR Reaction Allergy Type Onset Date Status codeine Codeine Unknown Drug Allergy Active Penicillin Unknown Drug Allergy Active Results Component Value Reference Range Notes Urinalysis, Routine Reviewed date:12/19/2024 02:26:15 PM Interpretation: Performing Lab: Notes/Report: Urine-Color yellow Appearance clear Glucose - Bilirubin - Ketones - Specific Merrill 1.010 Occult Blood - pH 6.0 Urine Protein - Urobilinogen,Semi-Qn - Nitrite, Urine - WBC Esterase - Reason For Referral No Information Medications Medication SIG (Take, Route, Frequency, Duration) Notes Start Date End Date Status Ativan 0.5 MG Tablet 1 tablet at bedtime as needed Orally Once a day Active Dodex 1000 MCG/ML Solution 1 mL Injection Active DULoxetine HCl 60 MG Capsule Delayed Release Particles 1 capsule Orally Once a day Active Topiramate 200 MG Tablet 1 tablet Orally Once a day Active traMADol HCl 50 MG Tablet 1 tablet as ne eded Orally Once a day Active Protonix 40 MG Tablet Delayed Release 1 tablet Orally Once a day Active Levothyroxine Sodium 125 MCG Tablet 1 tablet in the morning on an empty stomach Orally Once a day Active Social History Social History Additional Details Category Social Info Options Details Drug/Alcohol: Do you drink alcohol? 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 [place] [id number] Maria L Clark Self - patient is the insured [facility] [place] [address] [place], [place] [id number] [phone] [id number] Maria L Clark Self - patient is [...]
--- OUTSIDE RECORDS SUMMARY | 2025-09-11 17:03 | XMS_ITS | Patient Health Record ---
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 Role Phone Ybarra, [facility] Primary Care Provider Nickolas Rea Unavailable [phone] YBARRA, [facility] Unavailable Unavailable Anton Arceo Unavailable [phone] Allergies Allergen (clinical drug ingredient) Drug/Non Drug [...] ctive Results Component Value Reference Range Notes Thoracolumbar Spine AP/Lat-7 2079 Reviewed date:07/30/2025 01:57:33 PM Interpretation: Performing Lab: Notes/Report: See Below For Report Thoracolumbar Spine AP/Lat Standing views Read See Below For Report Thoracolumbar Spine AP/Lat-7 2079 Reviewed date:07/30/2025 01:57:33 PM Interpretation: Performing Lab: Notes/Report: [id number] Influenza A/B - [id number] Reviewed date:10/15/2024 04:27:47 PM Interpretation: Performing Lab: Notes/Report: A positive B negative Urine Drug Screen (cup read) - [id number] Reviewed date:02/25/2025 01:39:15 PM Interpretation: Performing Lab: Notes/Report: BZO + COVID-19 RAPID - 65820 Reviewed date:10/15/2024 04:28:03 PM Interpretation: Performing Lab: Notes/Report: COVID19 negative Reason For Referral Reason Patient would like t o see Dr. Arceo if possible for eval. Diagnosis 1 Back pain (M54.9) Diagnosis 2 Spinal stenosis (M48 .00) Diagnosis 3 Cervical spondylosis (M47.812) Diagnosis 4 Neck pain (M54.2) Referral Organization Formerly [facility] Referring Provider First Name Blanca Referring Provider Last Name Ybarra Referring Provider Speciality Nurse Isrrael daltonioner Referred Organization [facility] [place] Referred Provider Anton Arceo Referred Address [address] [facility] [place] [place],[address], Referred Provider Specialty Neurosurgery General Notes Jayne [...] Referring Provider Speciality Neurosurge ry Referred Organization [facility] Referred Provider Nickolas Rea Referred Address [address], [place],[address], General Notes Nellie Guthrie 01/15 02:48:10 PM >Mailed NPPW. Referral Priority Routine Reason Comprehensive cervic al and lumbar injections Diagnosis 1 Lumbar radiculopathy (M54.16) Diagnosis 2 Cervical spinal sten osis (M48.02) Diagnosis 3 Cervical radiculopat hy (M54.12) Diagnosis 4 Thoracic radiculopat hy (M54.14) Referral Organization [facility] [place] Referring Provider First Name Anton Referring Provider Last Name Adis Referring Provider Speciality Neurosurge ry Referred Organization [facility] Referred Provider Nickolas Rea Referred Address [address],[facility] [place],[address] Referred Provider Specialty Intervention al Pain Medicine Referral Priority Routine Medications Medication SIG (Take, Route, Frequency, Duration) Notes Start Date End Date Status tiZANidine HCl 4 MG Tablet 1 tablet at bedtime as needed Orally Once a day; Duration: 30 days 08/22/2025 Active Albuterol Sulfate HFA 108 (90 Base) MCG/ACT Aerosol Solution INHALE TWO PUFFS into lungs FOUR TIMES DAILY; Duration: 30 Not-Taking Carisoprodol 350 mg Tablet TAKE ONE TABLET BY MOUTH THREE TIMES DAILY NEEDED FOR MUSCLE SPASMS; Duration: 15 09/06/2024 Not-Taking Carafate 1 GM Tablet 1 tablet on an empty stomach Orally 4 times a day As needed Active Clindamycin HCl 150 MG Capsule TAKE ONE CAPSULE BY MOUTH THREE TIMES DAILY FOR 7 days Oral; Duration: 7 Days Not-Taking Doxepin HCl 25 MG Capsule 1 capsule at bedtime Orally Once a day; Duration: 30 day(s) 07/05/2023 Not-Taking Fluconazole 150 mg Tablet TAKE ONE TABLET BY MOUTH EVERY DAY FOR 3 DAYS; Duration: 3 Not-Taking Cyanocobalamin 1000 MCG/ML Solution inject 1 ML intramusculary DIRECTED EVERY MONTH at home; Duration: 90 days Active LORazepam 0.5 mg Tablet 1 tab orally 3 t imes a day prn anxiety; Duration: 30 days 08/22/2025 Active hydrOXYzine HCl 50 mg Tablet TAKE 1/2 TO 1 TABLET BY MOUTH TWICE DAILY NEEDED FOR ANXIETY/itch; Duration: 30 Active HYDROcodone-Acetaminophe n 5-325 MG Tablet Oral; Duration: 2 Days Not-Taking Levothyroxine Sodium 125 mcg Tablet TAKE ONE TABLET BY MOUTH EVERY DAY; Duration: 90 Active Sucralfate 1 GM/10ML Suspension TAKE 10 ML BY MOUTH THREE TIMES DAILY as directed; Duration: 30 Not-Takin g Pantoprazole Sodium 40 mg Tablet Delayed Release TAKE ONE TABLET BY MOUTH TWICE DAILY; Duration: 90 Active Tamiflu 75 MG Capsule 1 capsule Orally T wice a day; Duration: 5 day(s) 10/15/2024 Not-Taki ng Topiramate 200 mg Tablet TAKE ONE TABLET BY MOUTH TWICE DAILY; Duration: 90 Active DULoxetine HCl 60 mg Capsule Delayed Release Particles TAKE ONE CAPSULE BY MOUTH TWICE DAILY; Duration: 90 Active traMADol HCl 50 mg Tablet 1 to 2 tabs orally q 4 hours prn severe pain; Duration: 30 days As needed 08/22/2025 Active Aspirin Low Dose 81 MG Tablet Delayed Release TAKE 1 TABLET BY MOUTH TWICE DAILY Oral; Duration: 30 Days Not-Taking valACYclovir HCl 1 GM Tablet 1 tablet Orally 3 times a day; Duration: 10 days Not-Salvatore ing Immunizations Vaccine Route Administration Date Status Comme nts COVID-19 Vaccine (Moderna) Dose #1 Unknown 12/10/2020 A dministered COVID-19 Vaccine (Moderna) Dose #2 Unknown 01/07/2021 A dministered COVID-19 Vaccine (Moderna) Dose #3 Unknown 09/10/2021 A dministered Fluarix Quadrivalent Unknown 09/30/2021 Administered Flucelvax Trivalent, Syringe 0.5 mL, PF Unknown 07/16/2024 Refused Influenza (whole), CPT 88581 Inactive Unknown 08/08/2017 Administered Social History Tobacco [...] Social History Smoking Status:Ex-smoker (finding) Section Notes: Depression screen completed 07/05/2023 score 7 04/13/2022 04/13/2022 Depression screen completed 07/05/2023 score 7 Depression screen completed 07/05/2023 score 7 Depression screen completed 07/05/2023 score 7 Depression screen completed 02/23/2024 score 7 Depression screen completed 02/23/2024 score 7 04/13/2022 03/04/2022 03/04/2022 04/13/2022 04/13/2022 Depression screen completed 07/05/2023 score [...] W/U Status Risk Notes Problem Mixed hyperlipidemia (984155214) Mixed hyperlipidemia (E78.2) Active confirmed Problem Tobacco user (038547413) Nicotine dependence, cigarettes, uncomplicated (F17.210) Active confirmed Problem Migraine with aura (2397940) Migraine with aura, not intractable, without status migrainosus (G43.109) Active confirmed Problem Headache disorder (065353367) Other headache syndrome (G44.89) Active confirmed Problem Chronic pain syndrome (228271937) Chronic pain syndrome (G89.4) Active confirmed Problem Gastro-esophageal reflux disease without esophagitis (138902093) Gastro-esophageal reflux disease without esophagitis (K21.9) Active confirmed Problem Slow transit constipation (55066823) Slow transit constipation (K59.01) Active confirmed Problem Pain in limb (50347548) Pain in right hand (M79.641) Active confirmed Problem Pain in limb (02868280) Pain in left hand (M79.642) Active confirmed Problem Nausea (757239623) Nausea (R11.0) Active confir med Problem Hand joint pain (740659479) Pain in joints of right hand (M25.541) Active confirmed Problem Hand joint pain (887012947) Pain in joints of left hand (M25.542) Active confirmed Problem Cervical radiculopathy (85922880) Cervical radiculopathy (M54.12) Active confirmed Problem Gastroesophageal reflux disease without esophagitis (038636494) Gastroesophageal reflux disease without esophagitis (K21.9) Active confirmed Problem Anxiety (19066933) Anxiety (F41.9) Active confi rmed Problem Neck pain (12827178) Neck pain (M54.2) Active confirmed Problem Osteoarthritis (202093706) Osteoarthritis, unspecified osteoarthritis type, unspecified site (M19.90) Active confirmed Problem Lumbar radiculopathy (201372016) Lumbar radiculopathy (M54.16) Active confirmed Problem Hypothyroidism (01227431) Hypothyroidism, unspecified type (E03.9) Active confirmed Problem Vitamin B>12< deficiency anaemia (18534903) Anemia due to vitamin B12 deficiency, unspecified B12 deficiency type (D51.9) Active confirmed Problem Lumbar spondylosis (390451594) Lumbar spondylosis (M47.816) Active confirmed Problem Thoracic radiculopathy (49197051) Thoracic radiculopathy (M54.14) Active confirmed Problem Exacerbation of moderate persistent asthma (disorder) (981069119) Moderate persistent asthmatic bronchitis with acute exacerbation (J45.41) Active confirmed Problem Cervical spondylosis (074777093) Cervical spondylosis (M47.812) Active confirmed Problem Joint pain (91240369) Arthralgia, unspecified joint (M25.50) Active confirmed Problem Vitamin B12 deficiency (non anemic) (22117987) Vitamin B 12 deficiency (E53.8) Active confirmed Problem Diverticulitis (15911623) Diverticulitis (K57.92) Active confirmed Problem Acute gastritis (53725149) Other acute gastritis without hemorrhage (K29.00) Active confirmed Problem Leukopenia (92419246) Leukopenia, unspecified type (D72.819) Active confirmed Problem Insomnia (306592911) Insomnia, unspecified type (G47.00) Active confirmed Problem Gout (61593027) Gout, unspecifie d cause, unspecified chronicity, unspecified site (M10.9) Active confirmed Problem Febrile illness (583773648) Febrile illness (R50.9) Active confirmed Problem Spinal stenosis (21391401) Spinal stenosis (M48.00) Active confirmed Problem Wheezing (32352272) Wheezes (R06.2) Active conf irmed Problem Chronic pain (09252704) Chronic pain (G89.29) Active confirmed Problem Candidiasis of mouth (34785092) Oral ilan (B37.0) Active confirmed Problem Cervical spinal stenosis (14367737) Cervical spinal stenosis (M48.02) Active confirmed Problem Anxiety state (552604108) Anxiety disorder, unspecified type (F41.9) Active confirmed Problem Disorder of urinary bladder (76176513) Bladder wall thickening (N32.89) Active confirmed Problem Acute gastritis (disorder) (10117554) Acute gastritis without hemorrhage, unspecified gastritis type (K29.00) Active confirmed Problem Abnormal gait (19767745) Abnormality of gait and mobility (R26.9) Active confirmed Problem Abnormal gait (48483359) Decreased mobility (R26.89) Active confirmed Problem Idiopathic gout (41412439) Acute idiopathic gout of multiple sites (M10.09) Active confirmed Problem Acute headache (finding) (964918786) Acute nonintractable headache, unspecified headache type (R51.9) Active confirmed Problem Encounter for screening for COVID-19 (Z11.52) Active confirmed Problem Primary hypertension (38294100) Primary hypertension (I10) Active confirmed Problem Acute cough (674902196155902130 ) Acute cough (R05.1) Active confirmed Vital Signs Heart Rate 91 /min 08/22/2025 Temperature 98.1 degrees Fahrenheit 08/22/2025 Respiratory Rate 20 /min 08/22/2025 Height-cm 165.1 cm 08/22/2025 Blood pressure diastolic 76 mm Hg 08/22/2025 Oximetry 99 % 08/22/2025 Weight-kg 68.95 kg 08/22/2025 Height 65 in 08/22/2025 Blood pressure systolic 128 mm Hg 08/22/2025 Weight 152 lbs 08/22/2025 BMI 25.29 kg/m2 08/22/2025 Procedures Procedure Date Ordered Date Performed Result Body Sit e Epidural, Cervical/ Thoracic , w/ imaging guidance - 97444 03/26/2025 03/26/2025 7-15 Epidural, Lumbar/Sacral (Cau clare), w/ imaging guidance - 34414 04/09/2025 04/09/2025 07-29 Epidural, Lumbar/Sacral (Cau clare), w/ imaging guidance - 66830 07/16/2025 07/16/2025 11-04 Encounters Encounter Location Date Provider Diagnosis Formerly [facility] [address] [place] [address] 03/26/2025 Nickolas Rea Cervical radiculopathy M54.12 Formerly [facility] [address] [place] [address] 07/16/2025 Nickolas Rea Lumbar radiculopathy M54.16 Formerly [facility] [address] [place] [address] 06/03/2025 Nickolas Rea Chronic pain syndrom e G89.4 ; Cervical radiculopathy M54.12 ; Cervical spondylosis M47.812 ; Cervical spinal stenosis M48.02 ; Lumbar radiculopathy M54.16 ; Lumbar spondylosis M47.816 ; Abnormality of gait and mobility R26.9 and medical terminologist current use of therapeutic drug Z79.899 Formerly [facility] [place] [address] [place] [address] 01/01/2025 Anton Adis Thoracic spine pain M54.6 ; Cervical spinal stenosis M48.02 ; Thoracic radiculopathy M54.14 ; Lumbar radiculopathy M54.16 ; Cervical radiculopathy M54.12 ; Cervical spondylosis M47.812 and Neck pain M54.2 [facility] Office [address] [place] [address] 10/15/2024 [facility] Influenza A J10.1 ; Thrush B37.0 ; Wheezes R06.2 ; Bronchitis J40 and Cough R05.9 [facility] [address] [facility] [place] [address] 04/09/2025 Nickolas Rea Lumbar radiculopathy M54.16 [facility] [address] [address] 08/22/2025 [facility] discharge follow-up Z09 ; Hip fracture, right S72.001A ; Decreased mobility R26.89 ; Primary hypertension I10 ; Anxiety F41.9 ; Muscle spasm M62.838 and Hip pain M25.559 Formerly [facility] [address] [facility] [place] [address] 02/25/2025 Nickolas Rea Chronic pain syndrom e G89.4 ; Cervical radiculopathy M54.12 ; Cervical spondylosis M47.812 ; Cervical spinal stenosis M48.02 ; Lumbar radiculopathy M54.16 ; Lumbar spondylosis M47.816 ; Abnormality of gait and mobility R26.9 and medical terminologist current use of therapeutic drug Z79.[address] [address] 07/16/2025 [facility] [address] [place] [address] 05/06/2025 [facility] [address] [place] [address] 04/17/2025 Blanca Ybarra [address] [address] 12/03/2024 Blanca Ybarra Back pain M54.9 and Neck pain M54.[address] [address] 11/09/2024 Blanca Ybarra Bronchitis J40 Assessments Encounter Date Diagnosis (ICD Code) Assessment Notes Treatment Notes Treatment Clinical Notes Section Notes 10/15/2024 Influenza A (ICD-10 - J10.1) tamiflu 12/03/2024 Neck pain (ICD-10 - M54.2) 12/03/2024 Back pain (ICD-10 - M54.9) 10/15/2024 Thrush (ICD-10 - B37.0) diflucan nystatin 01/01/2025 Cervical spinal stenosis (ICD-10 - M48.02) [...] the procedure and all questions were answered. 01/01/2025 Thoracic spine pain (ICD-10 - M54.6) 03/26/2025 Cervical radiculopathy (ICD-10 - M54.12) 04/09/2025 [...] accordingly. 06/03/2025 Cervical radiculopathy (ICD-10 - M54.12) 08/22/2025 Hospital discharge follow-up (ICD-10 - Z09) 08/22/2025 Hip fracture, right (ICD-10 - S72.001A) 07/16/2025 Lumbar radiculopathy (ICD-10 - M54.16) 11/09/2024 Bronchitis (ICD-10 - J40) 08/22/2025 Decreased mobility (ICD-10 - R26.89) 01/01/2025 Thoracic radiculopathy (ICD-10 - M54.14) 06/03/2025 Cervical spondylosis (ICD-10 - M47.812) 02/25/2025 Cervical spondylosis (ICD-10 - M47.812) 10/15/2024 Wheezes (ICD-10 - R06.2) 10/15/2024 Bronchitis (ICD-10 - J40) z jeet 01/01/2025 Lumbar radiculopathy (ICD-10 - M54.16) The [...] 02/25/2025 Cervical spinal stenosis (ICD-10 - M48.02) 08/22/2025 Primary hypertension (ICD-10 - I10) continue meds 06/03/2025 Cervical spinal stenosis (ICD-10 - M48.02) 08/22/2025 Anxiety (ICD-10 - F41.9) lorazepam 06/03/2025 Lumbar radiculopathy (ICD-10 - M54.16) RECOMMEND [...] the procedure and all questions were answered. 01/01/2025 Cervical radiculopathy (ICD-10 - M54.12) 10/15/2024 Cough (ICD-10 - R05.9) 02/25/2025 Lumbar spondylosis (ICD-10 - M47.816) 01/01/2025 Cervical spondylosis (ICD-10 - M47.812) 06/03/2025 Lumbar spondylosis (ICD-10 - M47.816) 08/22/2025 Muscle spasm (ICD-10 - M62.838) tizanidine 08/22/2025 Hip pain (ICD-10 - M25.559) tramadol 06/03/2025 Abnormality of gait and mobility (ICD-10 - R26.9) 02/25/2025 Abnormality of gait and mobility (ICD-10 - R26.9) 01/01/2025 Neck pain (ICD-10 - M54.2) 06/03/2025 medical terminologist current use of therapeutic drug (ICD-10 - Z79.899) 02/25/2025 medical terminologist current use of therapeutic drug (ICD-10 - [...] has been made aware of this policy. 10/15/2024 Other Questions asked and answered; discharged to home. 02/25/2025 Other Juany Randall NCMA, am scribing for Dr. Nickolas Rea. I, Dr. Nickolas Rea, personally performed the services described in this documentation, as scribed by DELANEY Philip, and it is both accurate and complete. 06/03/2025 Other Deni Randall am scribing for Dr. Nickolas Rea. Nickolas Randall, personally performed the services described in this documentation, as scribed by Deni Strauss, and it is both accurate and complete. 08/22/2025 Other b12 duloxetine Questions asked and answered; discharged to home. Plan Of Treatment Pending Test Test Name Order Date Cervical Spine AP/Lat 2-3 [id number] Insurance Providers Payer Name Payer Address Payer Phone Subscriber Number Group Number Insured Name Patient Relationship to Insured Coverage Start Date Coverage End Date [place] [address] [place] [phone] [id number] Maria L Calrk Self - patient is the insured [place] [address] [place] [address] [id number] Eduardo Maria L Self - patient is the insured [facility] [address] [address] [place] [address] [phone] [id number] Eduardo, Maria L Self - patient is the insured Medications Administered Medication Instructions Date of Administration Dosage Notes DEPO-Medrol 03/23/2022 40 mg [facility] 24637-152 3-1 pt tolerated well/instructed to wait 20 min DEPO-Medrol 04/13/2022 40 mg [facility] 47633-799 3-1 pt tolerated well/instructed to wait 20 min DEPO-Medrol 07/19/2022 40 mg ND: [address]-36 Patient tolerated well, advised to wait 20 min at clinic DEPO-Medrol 08/03/2022 40 mg nd 8079-1439 -01 pt tolerated well/instructed to wait 20 min DEPO-Medrol 09/10/2022 40 mg [facility] 51059-693 3-01 pt tolerated well/instructed to wait 20 min DEPO-Medrol 07/05/2023 40 mg [facility] 15841-703 3-01 pt tolerated well/instructed to wait 20 min DEPO-Medrol 07/29/2023 40 mg [facility] 12061-602 3-01 pt tolerated well/instructed to wait 20 min DEPO-Medrol 11/11/2023 40 mg [facility] 12189-435 3-01 pt tolerated well/instructed to wait 20 min DEPO-Medrol 12/15/2023 40 mg [facility] 09409-758 3-01 pt tolerated well/instructed to wait 20 min DEPO-Medrol 02/23/2024 40 mg [facility] 90743-557 3-01 pt tolerated well/instructed to wait 20 min DEPO-Medrol 07/16/2024 40 mg [facility] 35021-049 3-01 pt tolerated well/instructed to wait 20 min DEPO-Medrol 08/23/2024 40 mg [facility] 19141-526 3-01 pt tolerated well/instructed to wait 20 min DEPO-Medrol 10/15/2024 40 mg [facility] 69463-605 3-01 pt tolerated well/instructed to wait 20 min dexAMETHasone 03/04/2022 8 [place] [address]-3 65-30 pt tolerated well/instructed to wait 20 min dexAMETHasone 03/23/2022 4 mg ndc 35446-3 39-30 pt tolerated well/instructed to wait 20 min dexAMETHasone 04/13/2022 [place] [address]-4 39-30 pt tolerated well/instructed to wait 20 min dexAMETHasone 07/19/2022 4 mg NDC: 00281-124-52 Patient tolerated well, advised to wait 20 min at clinic dexAMETHasone 08/03/2022 4 mg [facility] 31860-0 39-30 pt tolerated well/instructed to wait 20 min dexAMETHasone 09/10/2022 4 mg [facility] 04484-8 239-30 pt tolerated well/instructed to wait 20 min dexAMETHasone 07/05/2023 4 mg [facility] 81133-7 423-00 pt tolerated we/instructed to wait 20 min dexAMETHasone 07/29/2023 4 mg [facility] 08855-0 423-00 pt tolerated well/instructed to wait 20 min dexAMETHasone 11/11/2023 4 mg [facility] 73768-5 423-00 pt tolerated well/instructed to wait 20 min dexAMETHasone 12/15/2023 4 mg [facility] 23544-1 423-00 pt tolerated well/instructed to wait 20 min dexAMETHasone 02/23/2024 4 mg [facility] 87896-9 423-00 pt tolerated well/instructed to wait 20 min dexAMETHasone 07/16/2024 4 mg [facility] 63295-4 423-00 pt tolerated well/instructed to wait 20 min dexAMETHasone 08/23/2024 4 mg [facility] 45453-4 165-02 pt tolerated well/instructed to wait 20 min dexAMETHasone 10/15/2024 4 mg [facility] 47576-9 423-00 pt tolerated well/instructed to wait 20 min DiphenhydrAMINE Citrate 07/16/2024 [address] [place] [address]-75 pt tolerated well/instructed to wait 20 min Ketorolac Tromethamine 03/04/2022 [place] [address]-708-85 pt tolerated well/instructed to wait 20 min Ketorolac Tromethamine 04/13/2022 [place] [address]-944-32 pt tolerated well/instructed to wait 20 min Ketorolac Tromethamine 09/10/2022 60 [place] [address]-09 pt tolerated well/instructed to wait 20 min Ketorolac Tromethamine 12/15/2023 [place] [address]-62 pt tolerated well/instructed to wait 20 min Ketorolac Tromethamine 02/23/2024 [place] [address]-47 pt tolerated well/instructed to wait 20 min Ketorolac Tromethamine 07/16/2024 [place] [address]-21 pt tolerated well/instructed to wait 20 min Ketorolac Tromethamine 08/23/2024 60 [place] c [address]-571-57 pt tolerated well/instructed to wait 20 min Rocephin 07/19/2022 250 mg NDC: 8026-2906-89 Patient tolerated well, advised to wait 20 min at clinic Rocephin 08/03/2022 1 g ndc 4774-9624- 85 pt tolerated well/insructed to wait 20 min Rocephin 11/11/2023 1 g ndc [address] -11 pt tolerated well/instructed to wait 20 min Rocephin 11/22/2023 1 g ndc [address] -11 pt tolerated well/instructed to wait 20 min Cyanocobalamin 04/13/2022 1000 ug NDC: 2936-8673-14 Medication brought with patient to clinic from pharmacy, Patient tolerated well, advised to wait 20 min at clinic Cyanocobalamin 05/25/2022 1000 ug NDC: 27292-471-44 Medication brought to clinic with patient from [...] sleep apnea diverticulosis Surgical History Surgery Date(Month/Year) gall bladder removal bowel recontruction appendectomy cholecystectomy ruptured fallopian tube left wrist rotator cuff tear repair, both shoulder replacement, both left knee replacement Hospitalization History Reason Date(Month/Year) see surgery hx
[2025-09-11 17:05] VITALS: BP 130/77; PULSE 103; RESP 16; TEMP 36.6; O2SAT 98; BMI 24.3
--- NOTE | 2025-09-11 17:36 | W.ED.EXTPRO ---
HPI - Extremity Problem General: Chief complaint: Extremity Problem,Nontraumatic Stated complaint: lump lt hip Time Seen by Provider: 09/11/25 17:32 History of Present Illness: 75-year-old female presents emergency room complaining of significant amount of swelling on her right hip. August 02 of this year she had a femoral neck fracture she underwent open reduction internal fixation at this hospital by Dr. Luis. She states since the surgery she has had swelling in the area she has not had any fever sweats or chills the wound has healed well. She is not on any anticoagulants. She has not had any falls or trauma since the the repair of the hip fracture. Associated symptoms: Deny chest pain, fever(s) or rash Related Data Home Medications ?Medication ?Instructions ?Recorded ?Confirmed albuterol sulfate 90 mcg/actuation 2 puff inhalation Q6H PRN 05/27/20 09/17/25 aerosol inhaler Shortness Of Breath levothyroxine 125 mcg capsule 125 mcg PO DAILY 05/27/20 09/17/25 topiramate 200 mg tablet 400 mg PO DAILY 05/27/20 09/17/25 duloxetine 60 mg capsule,delayed 60 mg PO BID 08/03/25 09/17/25 release Previous Rx's ?Medication ?Instructions ?Recorded pantoprazole 40 mg tablet,delayed 40 mg PO BID 14 days #28 tabs 08/26/22 release (Protonix) aspirin 81 mg capsule 81 mg PO BID #60 caps 08/06/25 hydrocodone 5 mg-acetaminophen 325 1 - 2 tab PO .Q4-6H #40 tabs 08/06/25 mg tablet Wheelchair #1 ea 08/14/25 Shower chair #1 ea 08/20/25 wheelchair #1 ea 08/20/25 Shower Chair with arms #1 ea 09/17/25 Allergies Allergy/AdvReac Type Severity Reaction Status Date / Time codeine Allergy ALGY-Hives Verified 09/17/25 08:00 hydromorphone (From Dilaudid) Allergy ALGY-Anaphy Verified 09/17/25 08:00 laxis morphine Allergy ALGY-Hives Verified 09/17/25 08:00 Penicillins Allergy Unknown Verified 09/17/25 08:00 Review of Systems Const: Denies: fever(s) or chills Card: Denies: chest pain Resp: Denies: dyspnea GI: Denies: abdominal pain : Denies: dysuria, urinary frequency or urinary urgency Musc: Denies: neck pain or back pain Skin/Breast: Denies: rash PFSH ED PFSH: Family History Mother Breast cancer diagnosed at age 65 Unknown No pertinent family history colon cancer, uterine or ovarian cancer, heart disease, hypertension, hypercholesterolemia, stroke, diabetes, or thyroid issues Social History Smoking and tobacco/nicotine status: never used tobacco/nicotine Alcohol intake: current Alcohol intake frequency: 3 or more drinks per day Alcohol type: beer Physical Exam Const: COMMON NORMALS: no acute distress GENERAL APPEARANCE: cooperative and comfortable ORIENTATION/CONSCIOUSNESS: Yes awake, Yes oriented to person, Yes oriented to place and Yes oriented to time HENMT: COMMON NORMALS: normocephalic, atraumatic and hearing grossly normal bilaterally HEAD & SCALP: normocephalic and atraumatic Resp: COMMON NORMALS: normal respiratory effort, No retractions, No use of accessory muscles and clear to auscultation bilaterally AUSCULTATION: clear to auscultation bilaterally Cardio: COMMON NORMALS: regular rate, regular rhythm and No murmurs present (Cardio) RATE: regular rate RHYTHM: regular rhythm GI: COMMON NORMALS: Soft to palpation and No hepatosplenomegaly present AUSCULTATION: Yes normoactive bowel sounds PALPATION: Yes Soft to palpation, No Tenderness to palpation present (GI), No Guarding due to palpation present (GI) and Yes No hepatosplenomegaly present Extremity: OTHER: Right hip is significantly swollen fluctuant to palpation the overlying skin is mildly reddened and indurated the wound is well-healed there is no dehiscence no drainage tender to touch. Neuro: SENSORIUM/ORIENTATION: Yes oriented to person, Yes oriented to place and Yes oriented to time Skin: COMMON NORMALS: no rashes or lesions noted GENERAL SKIN EXAM: no rashes or lesions noted Procedures Abscess I/D Site: lower extremity (Right hip overlying greater trochanter at site of incision) Side (if applicable): right Technique: needle aspiration Amount of fluid expressed (mL): 150 Course Vital Signs: Vital signs: Vital Signs Temperature 97.8 F 09/11/25 17:05 Pulse Rate 94 09/11/25 20:30 Respiratory Rate 16 09/11/25 17:05 Blood Pressure 125/76 09/11/25 20:30 Pulse Oximetry 96 09/11/25 20:30 Oxygen Delivery Me thod Room Air 09/11/25 20:30 MDM - Extremity (Nontraumatic) Medical Decision Making Large seroma in the area of previous surgery. CT reviewed by myself and initially completed and reviewed by radiology. I discussed with Dr. Lee who is on-call for orthopedics. He does not feel that this is emergent this time he recommends that we go ahead and draw fluid off of it to try to drain it. Labs reviewed there is no leukocytosis moderate anemia chemistries no clinically significant abnormalities. Discussed drainage under sterile conditions with the patient and she consents verbally and wishes to proceed. Area prepped with Betadine then an 18-gauge needle used at the point of maximal fluctuance after reviewing CT for guidance. Was able to aspirate 150 mL of serosanguineous fluid. Culture was submitted. Patient tolerated well. Discharge home and follow-up with orthopedics next week. Dr. Lee did not feel antibiotics were indicated I would concur based on the findings of the aspiration and her lab work. Suspect this is a large but sterile postoperative seroma. Blood cultures were done as well. Medical Records I reviewed the patient's medical records. Lab Data I reviewed the patient's lab results. 09/11/25 18:09 09/11/25 18:[address] 09/11/25 17:46 IMPRESSION: Large fluid collection as described above. This collection may represent a hematoma/seroma. However, superimposed infection/abscess must be excluded. Hip/Pelvis X-Ray 09/11/25 17:58 IMPRESSION: No acute findings. Laboratory Results WBC 6.79 10^3/uL (3.29-11.43) 09/11/25 18:09 RBC 3.00 10^6/uL (3.85-5.65) L 09/11/25 18:09 Hgb 9.10 g/dL (11.27-16.99) L 09/11/25 18:09 Hct 30.0 % (36-47) L 09/11/25 18:09 MCV 100.0 fl (85-98) H 09/11/25 18:09 MCH 30.3 pg (27-33) 09/11/25 18:09 MCHC 30.3 g/dL (30-55) 09/11/25 18:09 RDW 13.4 % (12.1-15.1) 09/11/25 18:09 Plt Count 443 10^3/cmm (157-399) H 09/11/25 18:09 MPV 9.3 fL (7.4-10.4) 09/11/25 18:09 Neut % (Auto) 62.2 % 09/11/25 18:09 Lymph % (Auto) 24.0 % 09/11/25 18:09 Dillon % (Auto) 7.7 % 09/11/25 18:09 Eos % (Auto) 5.0 % 09/11/25 18:09 Baso % (Auto) 0.7 % 09/11/25 18:09 Neut # (Auto) 4.22 10^3/uL (1.8-7.7) 09/11/25 18:09 Lymph # (Auto) 1.6 10^3/uL (0.8-4.8) 09/11/25 18:09 Dillon # (Auto) 0.5 10^3/uL (0.2-0.9) 09/11/25 18:09 Eos # (Auto) 0.3 10^3/uL (0.0-0.8) 09/11/25 18:09 Baso # (Auto) 0.1 10^3/uL (0.0-0.1) 09/11/25 18:09 Nucleated RBC % (auto) 0 % 09/11/25 18:09 Nucleated RBCs # 0.0 /100WBC 09/11/25 18:09 Sodium 134 mmol/L (136-145) L 09/11/25 18:09 Potassium 4.3 mmol/L (3.5-5.1) 09/11/25 18:09 Chloride 99 mmol/L (98-107) 09/11/25 18:09 Carbon Dioxide 21 mmol/L (22-29) L 09/11/25 18:09 Anion Gap 18.3 (5-19) 09/11/25 18:09 BUN 7 mg/dL (8-23) L 09/11/25 18:09 Creatinine 0.8 mg/dL (0.5-0.9) 09/11/25 18:09 GFR Calculation Not Reportable 09/11/25 18:09 Glucose 80 mg/dL (65-115) 09/11/25 18:09 Calculated Osmolality 275 mOsm/kg (285-295) L 09/11/25 18:09 Lactic Acid 1.2 mmol/L (0.5-2.2) 09/11/25 18:09 Calcium 8.6 mg/dL (8.5-10.5) 09/11/25 18:09 Total Bilirubin 0.2 mg/dL (0.15-1.2) 09/11/25 18:09 AST 13 U/L (0-32) 09/11/25 18:09 ALT 6 U/L (0-33) 09/11/25 18:09 Alkaline Phosphatase 173 U/L (35-105) H 09/11/25 18:09 Total Protein 7.1 g/dL (6.6-8.7) 09/11/25 18:09 Albumin 3.4 g/dL (3.5-5.2) L 09/11/25 18:09 Globulin 3.7 g/dL (1.3-4.6) 09/11/25 18:09 All radiology interpretation(s) finalized by discharge ED provider radiology interpretation(s): X-ray of the right hip reviewed by myself no acute fractures. Arthroplasty components appear to be well aligned in good position no loosening no periprosthetic fractures CT of the hip reviewed by myself shows large postoperative seroma measures at its largest points 12 x 8 x 15 cm. No evidence of osteomyelitis. Reviewed by radiology as well. See radiology notes. Discharge Plan Discharge Patient Disposition: Home Clinical Impression: Postoperative seroma Condition: Stable Prescriptions: No Action levothyroxine 125 mcg capsule 125 mcg PO DAILY topiramate 200 mg tablet 400 mg PO DAILY albuterol sulfate 90 mcg/actuation HFA aerosol inhaler 2 puff INHALATION Q6H PRN (Reason: Shortness Of Breath) (DME) wheelchair See Rx Instructions .Route .MEDSUPPLY Qty: 1 0RF Rx Instructions: As directed (DME) Shower chair See Rx Instructions .Route .MEDSUPPLY Qty: 1 0RF Rx Instructions: As directed (DME) Shower Chair with arms See Rx Instructions .Route .MEDSUPPLY Qty: 1 0RF Rx Instructions: As directed, length of use 99 pantoprazole [Protonix] 40 mg tablet,delayed release (DR/EC) 40 mg PO BID 14 Days Qty: 28 0RF (DME) Wheelchair See Rx Instructions .Route .MEDSUPPLY Qty: 1 0RF Rx Instructions: As directed, length of need code 99. duloxetine 60 mg capsule,delayed release(DR/EC) 60 mg PO BID hydrocodone-acetaminophen 5-325 mg tablet 1 - 2 tab PO .Q4-6H Qty: 40 0RF aspirin 81 mg capsule 81 mg PO BID Qty: 60 0RF Discharge Orders: Discharge ED (Routine); Ordered 09/11/25 Ordered By: Cristhian Green Referrals: Blanca Ybarra, GEOGRAPHY INSTRUCTOR [Primary Care Provider, Nurse Practitioner] Discharge Diet: Usual diet Discharge Activity: Increase activity as tolerated Patient Instructions: Opioid Safety, Pain Management, Patient Portal & Tristan Instructions Activity Restrictions/Additional Instructions: Thank you for choosing [facility] for your healthcare needs today. It is very important that you follow up as instructed or that you return to the Emergency Department should you have concerns or if your condition changes or worsens in any way. Emergency department visits are focused on emergent conditions, in some cases you may require further evaluation on an outpatient basis. You are seen in the emergency room with a large fluid collection overlying the right hip. There is no elevation of your white count. On the CT it appears it is a large seroma we drained fluid out there that did not look infectious. This will be cultured. I discussed with the on-call orthopedist they would like to see you in the office as soon as you are able. Will send a note to have them make a follow-up appointment for you if you develop a fever return to the emergency room. You will likely have continued drainage from where we adithya fluid out for the next 2 to 3 days. (Please note that included in your discharge packet is information concerning opioid safety and pain management. This information is given to all patients were discharged from the ER regardless of their discharge diagnosis or the medicines they usually take or are prescribed.) Print Language: Greenlandic Coding Level of Care Code ED Chemical Machine Tender for 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
--- NOTE | 2025-09-11 17:46 | CTR_ITS ---
PROCEDURE INFORMATION: Exam: CT Right Lower Extremity With Contrast, Hip Exam date and time: 09/11/2025 7:33 PM Age: 75 years old Clinical indication: Swelling or effusion of joint; Right; Prior surgery; Surgery date: 1-6 months; Surgery type: RT sabrina July 2025; C/O of persistent pain with worsening swelling to RT hip since sabrina surgery in July. ; Additional info: Pain swelling TECHNIQUE: Imaging protocol: CT of the right lower extremity with intravenous contrast was performed. Exam focused on the hip. Radiation optimization: All CT scans at this facility use at least one of these dose optimization techniques: automated exposure control; mA and/or kV adjustment per patient size (includes targeted exams where dose is matched to clinical indication); or iterative reconstruction. Contrast material: OMNI 350; Contrast volume: 100 ml; Contrast route: INTRAVENOUS (IV); COMPARISON: CR XR hip RT 2-3V wo/w pel* [id number] 09/11/2025 5:50 PM RADIATION DOSE METRICS: Total DLP (mGy-cm): 436.2 FINDINGS: Bones/joints: Patient is status post right hip arthroplasty. Streak artifact from the prosthesis limits evaluation. However, within limits of the examination, there is no evidence of fracture or hardware failure. Soft tissues: There is a large peripherally enhancing fluid collection lateral to the greater trochanter measuring up to 12.5 x 8.5 x 15 cm. This collection is seen extending to the joint. Small bubble of air/gas is also seen within this collection. Superficial soft tissue stranding and skin thickening noted in the right proximal thigh laterally. Lumbar spine: Degenerative changes of the lumbar spine. Bones are osteopenic. Intraperitoneal space: No ascites seen. Visualized pelvic structures appear unremarkable. CT/CT hip RT w con [id number] IMPRESSION: Large fluid collection as described above. This collection may represent a hematoma/seroma. However, superimposed infection/abscess must be excluded.
--- NOTE | 2025-09-11 17:58 | XRR_ITS ---
PROCEDURE INFORMATION: Exam: XR Right Hip Exam date and time: 09/11/2025 5:50 PM Age: 75 years old Clinical indication: Hip pain; Right hip; Prior surgery; Surgery date: 6+ months; Surgery type: RT hip troch nail TECHNIQUE: Imaging protocol: Radiologic exam of the right hip. Views: 2 or 3 views hip with pelvis when performed. COMPARISON: CR (PELVIS, ) 08/04/2025 9:52 AM FINDINGS: Bones/joints: Intact right hip prosthesis. No fracture. Soft tissues: Unremarkable. XR/XR hip RT 2-3V wo/w pel* [id number] IMPRESSION: No acute findings.
[2025-09-11 18:18] VITALS: BP 121/79; PULSE 86; O2SAT 98
[2025-09-11 18:30] LABS: Hematocrit 30.0 % (36-47); Hemoglobin 9.10 g/dL (11.27-16.99); Mean Corpuscular HGB Conc 30.3 g/dL (30-55); Mean Corpuscular Hemoglobin 30.3 pg (27-33); Mean Corpuscular Volume 100.0 fl (85-98); Nucleated Red Blood Cells % 0 %; Platelet Count 443 10^3/cmm (157-399); Red Blood Count 3.00 10^6/uL (3.85-5.65); White Blood Count 6.79 10^3/uL (3.29-11.43)
[2025-09-11 18:56] VITALS: BP 121/72; PULSE 92; O2SAT 99
[2025-09-11 18:57] LABS: Alanine Aminotransferase 6 U/L (0-33); Albumin Level 3.4 g/dL (3.5-5.2); Alkaline Phosphatase 173 U/L (35-105); Anion Gap 18.3 (5-19); Aspartate Amino Transferase 13 U/L (0-32); Blood Urea Nitrogen 7 mg/dL (8-23); Calcium 8.6 mg/dL (8.5-10.5); Carbon Dioxide 21 mmol/L (22-29); Chloride 99 mmol/L (98-107); Globulin 3.7 g/dL (1.3-4.6); Glucose 80 mg/dL (65-115); Osmolality Calculated 275 mOsm/kg (285-295); Potassium 4.3 mmol/L (3.5-5.1); Sodium 134 mmol/L (136-145); Total Protein 7.1 g/dL (6.6-8.7)
[2025-09-11 18:58] LABS: Lactic Sepsis W/Reflex 1.2 mmol/L (0.5-2.2)
[2025-09-11 19:00] VITALS: BP 126/58; PULSE 86; O2SAT 99
[2025-09-11] MEDS: iohexol 350 mg/mL 500 mL Btl (per mL) IV (19:44)
[2025-09-11 20:00] VITALS: BP 123/75
[2025-09-11 20:30] VITALS: BP 125/76; PULSE 94; O2SAT 96
== END 2025-09-11 21:28 | disposition home or self-care (01) ==
PROVIDERS: Emergency Provider Family Medicine; PCP Nurse Practitioner Family
DX: L76.34 Postprocedural seroma of skin and subcutaneous tissue following other procedure (principal); Z79.82 Long term (current) use of aspirin; Z98.890 Other specified postprocedural states
CPT/HCPCS: 36415; 73502; 73701; 80053; 83605; 85025; 87040; 87070; 87075; 87205; 99285